=== PATIENT | male | born 1970 | race Asian ===

== ENCOUNTER 2023-08-30 11:29 | Outpatient (AMB) | payer OTHER, SELFPAY ==
--- NOTE | 2023-08-30 11:31 | A.OFFPC_ITS ---
Vital Signs 08/30/23 11:32 Height 5 ft 7 in Weight 326 lb BMI 51.1 BP 118/78 Blood Pressure Location Lt brachial Position Sitting Pulse 66 Pulse Source Pulse Oximeter Pulse Oximetry (%) 99 Oxygen Delivery Method Room Air Intake Visit Reasons: NPV/Requesting phy Accompanied by: Self / Same As Patient Allergies Seasonal Allergies Allergy (Verified 08/30/23 12:12) Unknown Medication List - Last Reconciled 08/30/23 by Bon Odonnell MD albuterol 90 mcg/actuation mcg inhalation azelastine 2 sprays intranasal BID cyclobenzaprine 10 mg PO BEDTIME meloxicam 15 mg PO DAILY triamcinolone acetonide-l.s.b. 0.1 % appl topical Tobacco use date assessed: 08/30/23 Dental Screening Dental Screen Date: 08/30/23 Did you have a dental visit in the last 12 months?: No Did you have a dental problem in the last 6 months where you did not have access to dental care?: No Was dental information given to patient?: No HPI NPV/Requesting phy HPI Details Patient comes in today for his annual physical examination and to establish care - is a new patient to the practice States that he has been experiencing low back pain and multiple joint pains for a while now Relates that he was referred to Rheumatology by his previous PCP sometime last year and was sent for some workups and started on some NSAIDs, which helped somewhat States that he was also referred to physical therapy and advised to lose weight to help manage his joint pains and low back pain States that he feels okay otherwise He denies any headaches or dizziness Denies any chest pains, no shortness of breath No nausea/ vomiting, no abdominal pain No change in bowel habits noted He denies any acute urinary symptoms Also needs his Albuterol inhaler Rx refilled States that he has never had a colonoscopy done in the past and is aware that he needs to start colon cancer screening now based on his age PFSH Medical History (Updated 09/02/23 @ 19:05 by Bon Odonnell MD) Asthma Obstructive sleep apnea Hypercholesteremia Bursitis of left shoulder Intermittent asthma Morbid obesity with BMI of 50.0-59.9, adult GERD (gastroesophageal reflux disease) Environmental allergies COVID-19 Surgical History (Updated 08/30/23 @ 12:20 by Bon Odonnell MD) No pertinent past surgical history Family History (Updated 09/02/23 @ 18:07 by Bon Odonnell MD) Other Family history non-contributory Social History Housing: House Patient Tobacco Use Status: Former Tobacco user e-Cigarette/Vaping Use: Never Used service: No Current occupational status: employed Current occupational exposures/hazards: No Cognitive needs: No Hearing needs: No Vision needs: No Questionnaire PHQ-9 Over the last 2 weeks, how often have you been bothered by any of the following problems? 1. Little interest or pleasure in doing things: not at all 2. Feeling down, depressed, or hopeless: not at all 3. Trouble falling or staying asleep, or sleeping too much: not at all 4. Feeling tired or having little energy: not at all 5. Poor appetite or overeating: not at all 6. Feeling bad about yourself - or that you are a failure or have let yourself or your family down: not at all 7. Trouble concentrating on things, such as reading the newspaper or watching television: not at all 8. Moving or speaking so slowly that other people could have noticed. Or the opposite - being so fidgety or restless that you have been moving around a lot more than usual: not at all 9. Thoughts that you would be better off or of hurting yourself in some way: not at all Total score: 0 Depression Screening Interpretation: Negative Depression Screening Done: Yes 28907 - PHQ-9 Billing: Yes Source: Developed by Drs. Michele Chen, Sima Grewal, Cain Juarez and colleagues, with an educational dalton from [employer]. Thrive Questionnaire Date Thrive assessed: 08/30/23 I am a: Patient What is your living situation today?: I have a steady place to live Within the past 12 months, did the food you bought not last and you didn't have the money to get more?: Never true Within the past 12 months, did you worry whether your food would run out before you got money to buy more?: Never true Do you have trouble paying for medicines?: No Do you have trouble getting transportation to medical appointments?: No Do you have trouble paying your heating and electricity bill?: No Do you have trouble taking care of your child, family member or friend?: No Do you have trouble with day-to-day activities such as bathing, preparing meals, shopping, managing finances, etc.?: No Are you currently unemployed and looking for a job?: No Are you interested in more education?: No Please select the resources that you would like help with: None Currently or been in a relationship where the following occur: no concerns reported THRIVE Score: 0 AUDIT C Alcohol Use Questionnaire (AUDIT-C) 1. How often do you have a drink containing alcohol?: Monthly or less 2. How many drinks containing alcohol do you have on a typical day when you are drinking?: 1 or 2 3. How often do you have six or more drinks on one occasion?: Never Total Score: 1 Score Reviewed/Action Taken: Yes FAUSTINA-7 AMB Questionnaire FAUSTINA-7 Date FAUSTINA - 7 assessed: 08/30/23 Feeling nervous, anxious, or on edge: 0 = Not at all Not being able to stop or control worryin = Not at all Worrying too much about different things: 0 = Not at all Trouble relaxin = Not at all Being so restless that it is hard to sit still: 0 = Not at all Becoming easily annoyed or irritable: 0 = Not at all Feeling afraid as if something awful might happen: 0 = Not at all Total FAUSTINA-7 score (0-4 normal; 5-9 mild; 10-14 moderate; 15-21 severe): 0 Source: Developed by Drs. Michele Chen, Sima Grewal, Cain Juarez and colleagues, with an educational dalton from [employer]. Review of Systems Const Denies chills, Denies fatigue, Denies fever(s), Denies headache(s), Denies malaise and Denies weakness Eyes Denies blurry vision, Denies change in vision, Denies irritation and Denies itchy eyes ENT Denies dysphagia, Denies dizziness, Denies otalgia, Denies headache(s), Denies nasal congestion, Denies neck pain, Denies odynophagia and Denies sore throat Card Denies chest pain, Denies rapid heart rate, Denies irregular heart rhythm, Denies palpitations and Denies dyspnea Resp Denies chest congestion, Denies cough, Denies dyspnea and Denies wheezing GI Denies abdominal pain, Denies bloating, Denies constipation, Denies dysphagia, Denies heartburn, Denies diarrhea, Denies nausea, Denies odynophagia and Denies vomiting Denies hematuria, Denies difficulty urinating, Denies dysuria, Denies urinary frequency and Denies urinary urgency Musc Reports back pain (over the lower back), Reports arthralgias (involving multiple joints), Denies joint swelling, Denies muscle weakness, Denies neck pain and Reports radiating pain into limb (into the right leg, at times) Skin/Breast Denies change in pigmentation, Denies lesions, Denies rash and Denies unusual bruising Neuro Denies dizziness, Denies headache(s), Denies paresthesias and Denies weakness Endo Denies fatigue and Denies palpitations Aller/Immun Denies itchy eyes and Denies wheezing Physical exam (Primary Care) Vital Signs: Last Vital Signs Pulse 66 08/30/23 11:32 BP 118/78 08/30/23 11:32 Pulse Ox 99 08/30/23 11:32 Oxygen Delivery Method Room Air 08/30/23 11:32 BMI result Body Mass Index 51.1 Tobacco/Smoking Status: Tobacco use Status Tobacco use date assessed 08/30/23 08/30/23 11:32 Patient Tobacco Use Status Former Tobacco user 08/30/23 11:42 e-Cigarette/Vaping Use Never Used 08/30/23 11:42 PHQ-9: PHQ-9 Score PHQ-9: Total score 0 08/30/23 12:16 Depression Screening Interpretation: Negative Thrive Assessment: Date of Thrive Assessment Date Thrive assessed 08/30/23 08/30/23 11:42 Currently or been in a relationship where the following occur: no concerns reported Const General: no acute distress, alert and awake Orientation/consciousness: patient oriented x3 HENMT Head: Yes normocephalic and Yes atraumatic Ears: external ears normal, TM's normal bilaterally and EAC's normal General nose exam: No nasal discharge present Face and sinus: Yes normal facial exam and Yes sinuses nontender Teeth and gingiva: dentition normal Throat: Yes posterior oropharynx normal and Yes tonsils normal (no TP congestion) Eyes Eyelids: Yes eyelids normal Conjunctivae: conjunctivae normal Pupils: Equal, round and reactive pupils present EOM: EOMs intact bilaterally Neck Neck: Yes no lymphadenopathy and Yes supple Thyroid: Thyroid normal Resp Auscultation: clear to auscultation bilaterally, no rales and no wheezes Cardio Rate: regular rate Rhythm: regular rhythm Heart sounds: no murmurs GI Palpation (GI): Soft to palpation, nontender and No hepatosplenomegaly present Auscultation: normal bowel sounds General: Yes no CVA tenderness Back/Spine/Pelvis Back: no CVA tenderness Cervical Spine: No Cervical spine tenderness Thoracic/Lumbar Spine: lumbar spinal tenderness Skin Lesions: no lesions Rashes: no rashes Neuro General: patient oriented x3, moves all extremities, no focal motor deficits and CN's II-XI intact bilaterally Cranial nerves: Yes Equal, round and reactive pupils present Cognition (Neuro): normal cognition Gait exam (Neuro): Normal gait present Extrem General: Yes no clubbing, cyanosis or edema Assessment and Plan Assessment & Plan (1) Annual physical exam: Code(s): Z00.00 - Encounter for general adult medical examination without abnormal findings Plan: Check labs (2) Arthralgia: Code(s): M25.50 - Pain in unspecified joint Qualifiers: Joint pain location: unspecified Qualified Code(s): M25.50 - Pain in unspecified joint Plan: Will send patient for some labs for further evaluation Discussed that we can consider referring him to rheumatology again for evaluation and management but will wait and see how his labs come out first Continue Meloxicam 15 mg QD with food PRN for joint pains (3) Low back pain: Code(s): M54.50 - Low back pain, unspecified Qualifiers: Back pain laterality: right Chronicity: unspecified Sciatica presence: unspecified whether sciatica present Qualified Code(s): M54.50 - Low back pain, unspecified Plan: Reinforced activity and weight-lifting restrictions May need repeat imaging if his low back pain progresses Continue Cyclobenzaprine 10 mg Q HS PRN (4) Obstructive sleep apnea: Code(s): G47.33 - Obstructive sleep apnea (adult) (pediatric) Plan: Continue using his CPAP device when sleeping at night daily (5) GERD (gastroesophageal reflux disease): Code(s): K21.9 - Gastro-esophageal reflux disease without esophagitis Qualifiers: Esophagitis presence: without esophagitis Qualified Code(s): K21.9 - Gastro-esophageal reflux disease without esophagitis Plan: Discussed dietary restrictions in GERD to minimize flare ups of symptoms (6) Hypercholesteremia: Code(s): E78.00 - Pure hypercholesterolemia, unspecified Plan: Discussed low cholesterol diet Will check his fasting lipid profile for follow up (7) Asthma: Code(s): J45.909 - Unspecified asthma, uncomplicated Qualifiers: Asthma severity: mild Asthma persistence: intermittent Asthma complication type: uncomplicated Qualified Code(s): J45.20 - Mild intermittent asthma, uncomplicated Plan: Continue Albuterol HFA 1 to 2 inhalations Q 6 hours PRN - Rx refilled (8) Morbid obesity with BMI of 50.0-59.9, adult: Code(s): E66.01 - Morbid (severe) obesity due to excess calories; Z68.43 - Body mass index [BMI] 50.0-59.9, adult Plan: Discussed diet/exercise as tolerated/lose weight (9) Colon cancer screening: Code(s): Z12.11 - Encounter for screening for malignant neoplasm of colon Plan: Will refer him to GI for screening colonoscopy Plan Follow up in 3 months Orders: Orders JAZZMINE Reflex Titer and Pattern 08/30/23 M25.50 - Pain in unspecified joint C Reactive Protein 08/30/23 M25.50 - Pain in unspecified joint Comprehensive [place]. Panel Fast 08/30/23 E78.00 - Pure hypercholesterolemia, unspecified, Z00.00 - Encounter for general adult medical examination without abnormal findings Lipid Panel 08/30/23 E78.00 - Pure hypercholesterolemia, unspecified, Z00.00 - Encounter for general adult medical examination without abnormal findings UA CC w/rflx Micro + Cult 08/30/23 R30.0 - Dysuria, Z00.00 - Encounter for general adult medical examination without abnormal findings Vitamin D 25-OH Total 08/30/23 E55.9 - Vitamin D deficiency, unspecified, Z00.00 - Encounter for general adult medical examination without abnormal findings Rheumatoid Factor 08/30/23 M25.50 - Pain in unspecified joint Erythrocyte Sedimentation Rate 08/30/23 M25.50 - Pain in unspecified joint, M79.7 - Fibromyalgia Lyme IgG/IgM w/reflex to WB 08/30/23 M25.50 - Pain in unspecified joint Complete Blood Count Auto Diff 08/30/23 Z00.00 - Encounter for general adult medical examination without abnormal findings TSH reflex Free T4 08/30/23 E78.00 - Pure hypercholesterolemia, unspecified, Z00.00 - Encounter for general adult medical examination without abnormal findings Prostate Specific Antigen Scr 08/30/23 Z00.00 - Encounter for general adult medical examination without abnormal findings Referrals Gastroenterology Referral Z12.11 - Encounter for screening for malignant neoplasm of colon Medications: New albuterol sulfate 90 mcg/actuation (Ventolin HFA) 2 puffs inhalation Q6H 30 days PRN 8.5 grams 5RF shortness of breath or wheezing Coding Level of Care Code New Pt Prev Care 40-64y(44180) Diagnoses Annual physical exam Z00.00 Arthralgia, unspecified joint M25.50 Joint pain location: unspecified Right low back pain, unspecified chronicity, unspecified whether sciatica present M54.50 Back pain laterality: right Chronicity: unspecified Sciatica presence: unspecified whether sciatica present Obstructive sleep apnea G47.33 Gastroesophageal reflux disease without esophagitis K21.9 Esophagitis presence: without esophagitis Hypercholesteremia E78.00 Mild intermittent asthma without complication J45.20 Asthma severity: mild Asthma persistence: intermittent Asthma complication type: uncomplicated Morbid obesity with BMI of 50.0-59.9, adult E66.01; Z68.43 Colon cancer screening Z12.11
[2023-08-30 11:32] VITALS: BP 118/78; PULSE 66; O2SAT 99; BMI 51.1
== END 2023-08-30 12:28 | disposition home or self-care (01) ==
PROVIDERS: PCP Internal Medicine; Visit Provider Internal Medicine
DX: Z00.00 Encounter for general adult medical examination without abnormal findings (principal); E66.01 Morbid (severe) obesity due to excess calories; Z68.43 Body mass index [BMI] 50.0-59.9, adult; M25.50 Pain in unspecified joint; M54.50 Low back pain, unspecified; G47.33 Obstructive sleep apnea (adult) (pediatric); K21.9 Gastro-esophageal reflux disease without esophagitis; E78.00 Pure hypercholesterolemia, unspecified; J45.20 Mild intermittent asthma, uncomplicated; Z12.11 Encounter for screening for malignant neoplasm of colon
CPT/HCPCS: 99386

== ENCOUNTER 2023-08-30 12:32 | Outpatient (REF) | payer OTHER, SELFPAY ==
[2023-08-30 12:51] LABS: MANUAL DIFF FLAG NO
[2023-08-30 14:45] LABS: Basophils Absolute Auto 0.1 X10*3/uL (0.0-0.2); Basophils Percent Auto 0.5 % (0-2); Eosinophils Absolute Auto 0.3 X10*3/uL (0.0-0.4); Eosinophils Percent Auto 3.1 % (0-4); Hematocrit 48.6 % (42.0-52.0); Hemoglobin 15.3 g/dl (14.0-18.0); Imm Gran Abs Auto 0.03 X10*3/uL (0.00-0.03); Imm Gran Pct Auto 0.3 % (0.0-0.4); Lymphocytes Percent Auto 21.7 % (20-40); Mean Corpuscular HGB Conc 31.5 g/dl (31.0-36.0); Mean Corpuscular Hemoglobin 27.3 pg (27.0-33.0); Mean Corpuscular Volume 86.6 fL (80.0-98.0); Mean Platelet Volume 10.3 fL (9.4-12.4); Monocytes Absolute Auto 0.8 X10*3/uL (0.1-1.2); Monocytes Percent Auto 8.5 % (2-11); Neutrophils Absolute Auto 6.2 x10*3/uL (2.0-8.3); Neutrophils Percent Auto 65.9 % (45-73); Platelet Count 320 X10*3/uL (160-400); Red Blood Count 5.61 X10*6/uL (4.60-5.80); Red Cell Distribution Width 13.7 % (11.0-16.0); White Blood Count 9.4 X10*3/uL (4.8-10.8)
[2023-08-30 14:57] LABS: Appearance Urine Clear; Color Urine Yellow; Glucose Urine UA Negative (Negative); Leukocyte Esterase Urine Trace (Negative); Nitrite Urine Negative (Negative); Specific Gravity - Urine 1.015 (1.005-1.025); UMIC TRIGGER UACC YES; Urine Blood Negative (Negative); Urine Ketones Negative (Negative); Urine Protein Trace mg/dL (Neg-Trace)
[2023-08-30 15:10] LABS: Bacteria Urine Trace (None Seen); Hyaline Casts Urine 0-2 /LPF (0-2); RBC Urine 0-2 /HPF (0-2); WBC Urine 0-5 /HPF (0-5)
[2023-08-30 15:35] LABS: Erythrocyte Sedimentation Rate 21 MM/HR (0-15)
[2023-08-30 15:36] LABS: Rheumatoid Factor < 13.0 IU/mL (<15.0)
[2023-08-30 15:38] LABS: Alanine Aminotransferase 24 U/L (0-40); Alkaline Phosphatase 59 U/L (39-117); Anion Gap 13 (12-20); Aspartate Amino Transferase 20 U/L (5-37); Bilirubin Total 0.6 mg/dL (0.0-1.0); Blood Urea Nitrogen 12 mg/dL (9-16); C Reactive Protein 1.36 mg/dL (< or = 0.50); Calcium 9.4 mg/dL (8.4-10.2); Carbon Dioxide 28 mmol/L (22-29); Chloride 107 mmol/L (96-108); Cholesterol 168 mg/dL (<200); Estimated Glomerular Filt Rate > 60; Glucose Fasting 72 mg/dL (60-99); HDL Cholesterol 41 mg/dL (>40); LDL Cholesterol Calculated 108 mg/dL (<100); Sodium 144 mmol/L (135-145); Triglycerides 98 mg/dL (<150)
[2023-08-30 15:46] LABS: TSH reflex Free T4 1.43 uIU/mL (0.32-4.0); Vitamin D 25-OH Total 12.4 ng/mL (>30)
[2023-08-30 15:49] LABS: Prostate Specific Antigen Scr 2.32 ng/mL (<0.05-4.0)
[2023-08-31 09:18] LABS: Lyme Abs Screen <0.90 index
[2023-09-06 15:54] LABS: ANA Pattern 2 Nuclear, Homogeneous; ANA Titer 2 1:40 titer; Anti Nuclear Antibody Pattern Nuclear, Nucleolar; Anti Nuclear Antibody Screen POSITIVE (NEGATIVE)
== END 2023-08-30 12:33 | disposition home or self-care (01) ==
LOC: HO.LAB 12:32
PROVIDERS: PCP Internal Medicine; Visit Provider Internal Medicine
DX: Z00.00 Encounter for general adult medical examination without abnormal findings (principal); Z12.5 Encounter for screening for malignant neoplasm of prostate; M25.50 Pain in unspecified joint; E78.00 Pure hypercholesterolemia, unspecified; E55.9 Vitamin D deficiency, unspecified; M79.7 Fibromyalgia
CPT/HCPCS: 36415; 80053; 80061; 81001; 82306; 84153; 84443; 85025; 85652; 86038; 86039; 86140; 86431; 86617; 86618

== ENCOUNTER 2023-09-11 12:54 | Outpatient (AMB) | payer OTHER, SELFPAY ==
--- NOTE | 2023-09-11 14:21 | AM.OFFWIN_ITS ---
Intake Vital Signs 09/11/23 14:29 Height 5 ft 7 in Weight 332 lb BMI 52.0 BP 122/60 Blood Pressure Location Rt brachial Position Sitting Pulse 90 Pulse Source Pulse Oximeter Temp 98.8 F Temp Source Oral Pulse Oximetry (%) 95 Oxygen Delivery Method Room Air Intake Visit Reasons: EST/cough and body aches ([phone]) Intake Note: Pt is here c/o ongoing cough and body aches for three days. Patient Tobacco Use Status: Never used Tobacco Allergies Seasonal Allergies Allergy (Verified 09/11/23 15:09) Unknown Medication List - Last Reconciled 09/11/23 by SARBJIT Walters albuterol 90 mcg/actuation mcg inhalation albuterol sulfate 90 mcg/actuation (Ventolin HFA) 2 puffs inhalation Q6H PRN 30 days azelastine 2 sprays intranasal BID benzonatate 200 mg PO BID PRN cholecalciferol (vitamin D3) 50 mcg PO DAILY 90 days prednisone 20 mg PO BID Do you need a note to return to daycare/school/sports/work: No HPI HPI Comments History of Present Illness Details Patient is a 52-year-old male in today for sick visit. He states that for the past several days he developed symptoms of cough, sore throat, chest congestion, wheeze. He has a past medical history significant for asthma. Patient states he has an albuterol inhaler which he has taken with little effect. Denies chest pain, shortness a breath, dyspnea on exertion, dizziness, numbness, nausea, vomiting. [facility] Medical History Asthma Obstructive sleep apnea Hypercholesteremia Bursitis of left shoulder Intermittent asthma Morbid obesity with BMI of 50.0-59.9, adult GERD (gastroesophageal reflux disease) Environmental allergies COVID-19 Surgical History No pertinent past surgical history Family History (Updated 09/02/23 @ 18:07 by Bon Odonnell MD) Other Family history non-contributory Social History Housing: House Patient Tobacco Use Status: Never used Tobacco e-Cigarette/Vaping Use: Never Used service: No Current occupational status: employed Current occupational exposures/hazards: No Cognitive needs: No Hearing needs: No Vision needs: No Review of Systems Const All systems reviewed & are unremarkable except as noted in HPI and below ENT Denies dizziness, Reports post nasal drip and Reports sore throat Card Denies chest pain and Denies dyspnea Resp Reports cough, Denies dyspnea and Reports wheezing GI Denies abdominal pain, Denies nausea and Denies vomiting Neuro Denies dizziness Aller/Immun Reports wheezing Physical Exam Vital Signs: Last Vital Signs Temp 98.8 F 09/11/23 14:29 Pulse 90 09/11/23 14:29 BP 122/60 09/11/23 14:29 Pulse Ox 95 09/11/23 14:29 Oxygen Delivery Method Room Air 09/11/23 14:29 BMI result Body Mass Index 52.0 Const Other: Appearance: Alert.? Oriented X3.? No acute distress.? Head: Normocephalic, atraumatic. ENT: Pharynx erythema w/cobblestone. Septum midline. TM intact with effusion bilaterally. Neck: Normal inspection.? Neck supple.?Full ROM. CVS: Normal heart rate and rhythm.? Pulses normal. Heatr sounds diminished due to body habitus. ? Respiratory: No respiratory distress.? Bilateral wheeze of upper lobes. Neuro: Oriented X 3.? No motor deficit.? No sensory deficit. CN 2-12 intact Assessment & Plan Assessment & Plan (1) Upper respiratory infection: Comment: Will give patient benzonatate and prednisone. Patient has albuterol inhaler nebulizer at home. Patient has been instructed how to take the medication properly and common side effects. Patient has been educated on signs of worsening symptoms and when to report back to the walk-in or when to present to the ED. Code(s): J06.9 - Acute upper respiratory infection, unspecified Qualifiers: URI type: unspecified URI Qualified Code(s): J06.9 - Acute upper respiratory infection, unspecified Plan: Take your medications as prescribed. If you were prescribed antibiotics today, it is important that you take your medication to their entirety, do not skip any doses, do not finish them early. Follow-up with your primary care provider this week. Return to the emergency department with new or worsening symptoms. Such as fevers, chills, chest pain, shortness of breath, nausea, vomiting, dizziness, headache, vision changes, lethargy In case of emergency call 911 Plan Follow-up with PCP. Orders: Orders SARS-CoV2/FLU/RSV Today J06.9 - Acute upper respiratory infection, unspecified Medications: New prednisone 20 mg PO BID 10 tabs 0RF benzonatate 200 mg PO BID PRN 30 caps 0RF cough Coding Level of Care Code Est Pt Level 3 (78031) Diagnoses Upper respiratory tract infection, unspecified type J06.9 URI type: unspecified URI Time Spent (min) 25
[2023-09-11 14:29] VITALS: BP 122/60; PULSE 90; TEMP 37.1; O2SAT 95; BMI 52.0
== END 2023-09-11 15:34 | disposition home or self-care (01) ==
PROVIDERS: PCP Internal Medicine; Visit Provider Nurse Practitioner Primary Care
DX: J06.9 Acute upper respiratory infection, unspecified (principal)
CPT/HCPCS: 99213

== ENCOUNTER 2023-09-11 16:52 | Outpatient (REF) | payer OTHER, SELFPAY ==
[2023-09-11 17:37] LABS: Influenza A PCR POSITIVE (Negative); Influenza B PCR NEGATIVE (Negative); Resp Syncy Virus RNA Qual PCR NEGATIVE (Negative); SARS COV2 PCR INHOUSE NEGATIVE (Negative)
== END 2023-09-11 16:53 | disposition home or self-care (01) ==
LOC: HO.LNP 16:52
PROVIDERS: Visit Provider Nurse Practitioner Primary Care
DX: Z11.52 Encounter for screening for COVID-19 (principal); J06.9 Acute upper respiratory infection, unspecified
CPT/HCPCS: 0241U

== ENCOUNTER 2023-10-02 12:48 | Outpatient (AMB) | payer OTHER, SELFPAY ==
--- NOTE | 2023-10-02 12:52 | A.OFFVIS_ITS ---
Intake Vital Signs 10/02/23 12:53 Height 5 ft 7 in Weight 337 lb 4.916 oz BMI 52.8 BP 130/62 Blood Pressure Location Rt radial Position Sitting Pulse 88 Pulse Source Pulse Oximeter Temp 97.9 F Temp Source Skin Pulse Oximetry (%) 96 Oxygen Delivery Method Room Air Intake Visit Reasons: Joint Pain Intake Note: New patient, internally referred, presents to office today for joint pain. Joints affected: right knee, left knee, back, left shoulder (known bursitis) Has tried: cortisone injections on left shoulder Physiologist Required: No Accompanied by: Self / Same As Patient Allergies Seasonal Allergies Allergy (Verified 10/02/23 12:52) Unknown HPI HPI Comments History of Present Illness Details Mr. Aramis estrella 52-year-old male presents today for initial evaluation of right knee pain and positive JAZZMINE. Patient was referred by primary care. He has a PMH of Dyslipidemia, asthma, morbid obesity, GERD. The patient reports that he has been having increased knee pain more than normal. The right knee hurts more than the left and hurts usually with movements like when he is walking or climbing stairs. He has had knee x-rays done either July last year or the beginning of August this year. In addition to his knee, he has pain to the left shoulder for which he receives corticosteroid injections. He also endorses low back pain which she says is not frequent and manageable. He also describes that sometimes he feels what he describes as a Zing on the do rsum of his left hand that starts from his elbow or his shoulder and shoots down to his finger. The patient is currently on prednisone 30 mg tapered from 60 mg per day for asthma exacerbation. The patient denies prolonged morning stiffness that last more than an hour. He denies episodes of joint swelling, warmth and redness. He denies rashes, Raynaud's, sun sensitivity, dry eyes, red burning eyes and dry mouth. He denies abdominal and urinary concerns and has no problems swallowing his food. He denies chronic fevers, fatigue and unintended weight loss or weight gain. [facility] Medical History Osteoarthritis of both knees Right knee pain Asthma Obstructive sleep apnea Hypercholesteremia Bursitis of left shoulder Intermittent asthma Morbid obesity with BMI of 50.0-59.9, adult GERD (gastroesophageal reflux disease) Environmental allergies COVID-19 Surgical History No pertinent past surgical history Family History (Updated 10/02/23 @ 12:57 by TRISHA Tom) Other Family history non-contributory Social History (Updated 10/02/23 @ 12:57 by TRISHA Tom) Housing: House Alcohol intake: current Alcohol intake frequency: holidays/special occasions only Patient Tobacco Use Status: Never used Tobacco e-Cigarette/Vaping Use: Never Used service: No Current occupational status: employed 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 External ear normal. NOSE/SINUS:? Airflow through both nares, no nasal discharge, no bleeding THROAT:? Oral mucosa moist, no ulcerations NECK:? No thyromegaly or masses, no adenopathy, trachea midline. HEART:? Regular rhythm, S1-S2 heard, no murmurs, rubs or gallops. LUNG:? Clear to auscultation EXTREMITIES:? No edema, no calf tenderness, normal peripheral pulses. NEURO:? Oriented and alert x3.? No focal weakness.? Reflexes symmetric.? Gait normal. SKIN:? There are no skin lesions evident. No objective signs of Raynaud's phenomenon. JOINT EXAM: Cervical Spine:.? Full range of motion without pain; no tenderness. Thoracic Spine:.? No scoliosis.? No tenderness on palpation. Lumbar Spine:.? Alignment normal.? Full range of motion without pain, no tenderness. Chest Wall:.? No tenderness, swelling, increased warmth or erythema. Hands:.? Normal pain-free range of motion without tenderness, swelling, increased warmth or erythema. Able to make a full fist and has a good sales order specialist strength. Wrists:.? Normal pain-free range of motion without tenderness, swelling, increased warmth or erythema. Elbows:. Normal pain-free range of motion without tenderness, swelling, increased warmth or erythema. Shoulders:.?? Right: Full range of motion without pain. No tenderness, weakness, swelling, increased warmth or erythema. Left: Full range of motion with mild discomfort and audible clicking. No tenderness, weakness, swelling, increased warmth or erythema. Hips:.? Full range of motion without pain. Hip bursa:.? No tenderness. Knees:.?? Right: Normal pain-free range of motion with tenderness to lateral and patellofemoral joint lines, swelling, increased warmth or erythema.? There is no effusion or crepitation Left: Normal pain-free range of motion without tenderness swelling, increased warmth or erythema.? There is no effusion or crepitation Ankles:.? Normal pain-free range of motion without tenderness, swelling, increased warmth or erythema. Feet:.? Normal pain-free range of motion without tenderness, swelling, increased warmth or erythema. Tender points:? No tenderness to digital palpation at the occiput, trapezius, second rib, lateral epicondyle, knees, greater trochanter and gluteal area bilaterally. ? Results Reviewed Results Reviewed: Laboratory Tests 08/30/23 09/11/23 12:50 16:53 WBC 9.4 RBC 5.61 Hgb 15.3 Hct 48.6 ESR 21 H Creatinine 0.87 Estimated GFR > 60 AST 20 ALT 24 C-Reactive Protein 1.36 H 25-OH Vitamin D Total 12.4 L JAZZMINE Titer 1:320 H JAZZMINE Titer 2 1:40 H Influenza Type A (PCR) POSITIVE A Assessment & Plan Assessment & Plan (1) Positive JAZZMINE (antinuclear antibody): Code(s): R76.8 - Other specified abnormal immunological findings in serum (2) Morbid obesity with BMI of 50.0-59.9, adult: Code(s): E66.01 - Morbid (severe) obesity due to excess calories; Z68.43 - Body mass index [BMI] 50.0-59.9, adult (3) Right knee pain: Code(s): M25.561 - Pain in right knee Qualifiers: Chronicity: chronic Qualified Code(s): M25.561 - Pain in right knee; G89.29 - Other chronic pain (4) Osteoarthritis of both knees: Code(s): M17.0 - Bilateral primary osteoarthritis of knee Qualifiers: Osteoarthritis type: primary Qualified Code(s): M17.0 - Bilateral primary osteoarthritis of knee Plan #Right Knee Pain/OA/Morbid Obesity(BMI52.8):Mr. Duke presents today for the evaluation of right knee pain. I think his knee pain is possibly a consequence of his morbid obesity. I do not have the x-rays available to me to see the extent of the osteoarthritis. I think, and the patient agrees that he would benefit from orthopedic referral for possible HLA injections. We will obtain the x-rays and assess to see if this is possible. Nonetheless I will put in of the ortho referral at this time. I also discussed with the patient steroid injections but it is better to hold off on doing that if we are sending him to ortho. I will also prescribe meloxicam 15 mg q.d.. Based on his records the patient did use that before and had stated that it helped his knees. I discussed with patient the concerns for using meloxicam and recommend that he take it with food to avoid abdominal discomfort. His kidney and liver functions are adequate at this time to use meloxicam. His CRP is elevated but I think that is related to his obesity and not likely an inflammatory pathology for joints. The patient has been on 60 mg of prednisone taper down to 30 and does not feel any relief from his knee pain while taking prednisone. This is another indicator that it is more likely that his knee pain is from mechanical causes such as osteoarthritis and also secondary to the obesity. He would certainly benefit from weight loss #+JAZZMINE: After careful initial review of history, records, available diagnostics and physical examination, it does not appear at this time that the patient has an underlying connective tissue disease or related inflammatory process. As outlined in the HPI and PE there are no signs and symptoms of connective tissue disease. Nonetheless I will order additional labs to evaluate further. I will or so order uric acid levels. Follow-up in 3 weeks I spent 50 minutes reviewing history, evaluating and counseling patient and documenting. Orders: Orders Complete Blood Count Auto Diff Today E66.01 - Morbid (severe) obesity due to excess calories, M25.50 - Pain in unspecified joint, R76.8 - Other specified abnormal immunological findings in serum, Z68.43 - Body mass index [BMI] 50.0- 59.9, adult Comprehensive Met. Panel Today E66.01 - Morbid (severe) obesity due to excess calories, M25.50 - Pain in unspecified joint, R76.8 - Other specified abnormal immunological findings in serum, Z68.43 - Body mass index [BMI] 50.0-59.9, adult C Reactive Protein Today E66.01 - Morbid (severe) obesity due to excess calories, M25.50 - Pain in unspecified joint, R76.8 - Other specified abnormal immunological findings in serum, Z68.43 - Body mass index [BMI] 50.0-59.9, adult Uric Acid Today E66.01 - Morbid (severe) obesity due to excess calories, M25.50 - Pain in unspecified joint, R76.8 - Other specified abnormal immunological findings in serum, Z68.43 - Body mass index [BMI] 50.0-59.9, adult Protein Electrophoresis, Serum Today E66.01 - Morbid (severe) obesity due to excess calories, M25.50 - Pain in unspecified joint, R76.8 - Other specified abnormal immunological findings in serum, Z68.43 - Body mass index [BMI] 50.0- 59.9, adult Anti DNA DS Antibody Today E66.01 - Morbid (severe) obesity due to excess calories, M25.50 - Pain in unspecified joint, R76.8 - Other specified abnormal immunological findings in serum, Z68.43 - Body mass index [BMI] 50.0-59.9, adult Anti Extractable Nuclear Ag Today E66.01 - Morbid (severe) obesity due to excess calories, M25.50 - Pain in unspecified joint, R76.8 - Other specified abnormal immunological findings in serum, Z68.43 - Body mass index [BMI] 50.0-59.9, adult Complement C3 Today E66.01 - Morbid (severe) obesity due to excess calories, M25.50 - Pain in unspecified joint, R76.8 - Other specified abnormal immunological findings in serum, Z68.43 - Body mass index [BMI] 50.0-59.9, adult Complement C4 Today E66.01 - Morbid (severe) obesity due to excess calories, M25.50 - Pain in unspecified joint, R76.8 - Other specified abnormal immunological findings in serum, Z68.43 - Body mass index [BMI] 50.0-59.9, adult Creatine Kinase Total Today E66.01 - Morbid (severe) obesity due to excess calories, M25.50 - Pain in unspecified joint, R76.8 - Other specified abnormal immunological findings in serum, Z68.43 - Body mass index [BMI] 50.0-59.9, adult Erythrocyte Sedimentation Rate Today E66.01 - Morbid (severe) obesity due to excess calories, M25.50 - Pain in unspecified joint, R76.8 - Other specified abnormal immunological findings in serum, Z68.43 - Body mass index [BMI] 50.0- 59.9, adult Immunoglobulins,IgG IgA IgM Today E66.01 - Morbid (severe) obesity due to excess calories, M25.50 - Pain in unspecified joint, R76.8 - Other specified abnormal immunological findings in serum, Z68.43 - Body mass index [BMI] 50.0-59.9, adult Cyclic Citrullinated Peptide Today M25.50 - Pain in unspecified joint, M25.561 - Pain in right knee Referrals Orthopedics Referral M17.0 - Bilateral primary osteoarthritis of knee Medications: New meloxicam 15 mg PO DAILY 90 tabs 1RF M25.561 - Pain in right knee Coding Level of Care Code Est Pt Level 5 (89158) Diagnoses Positive JAZZMINE (antinuclear antibody) R76.8 Morbid obesity with BMI of 50.0-59.9, adult E66.01; Z68.43 Chronic pain of right knee M25.561; G89.29 Chronicity: chronic Primary osteoarthritis of both knees M17.0 Osteoarthritis type: primary
[2023-10-02 12:53] VITALS: BP 130/62; PULSE 88; TEMP 36.6; O2SAT 96; BMI 52.8
== END 2023-10-02 14:25 | disposition home or self-care (01) ==
PROVIDERS: PCP Internal Medicine; Visit Provider Nurse Practitioner Family
DX: G89.29 Other chronic pain (principal); R76.8 Other specified abnormal immunological findings in serum; E66.01 Morbid (severe) obesity due to excess calories; Z68.43 Body mass index [BMI] 50.0-59.9, adult; M25.561 Pain in right knee; M17.0 Bilateral primary osteoarthritis of knee
CPT/HCPCS: 99205

== ENCOUNTER 2023-10-02 12:48 | Outpatient (REF) | payer OTHER, SELFPAY ==
[2023-10-02 15:27] LABS: Basophils Percent Auto 0.2 % (0-2); Eosinophils Percent Auto 0.1 % (0-4); Hematocrit 46.8 % (42.0-52.0); Hemoglobin 15.2 g/dl (14.0-18.0); Imm Gran Abs Auto 0.07 X10*3/uL (0.00-0.03); Imm Gran Pct Auto 0.6 % (0.0-0.4); Lymphocytes Absolute Auto 0.7 X10*3/uL (1.2-4.9); Lymphocytes Percent Auto 5.9 % (20-40); MANUAL DIFF FLAG SCAN; Mean Corpuscular HGB Conc 32.5 g/dl (31.0-36.0); Mean Corpuscular Hemoglobin 27.5 pg (27.0-33.0); Mean Corpuscular Volume 84.8 fL (80.0-98.0); Mean Platelet Volume 9.5 fL (9.4-12.4); Monocytes Absolute Auto 0.3 X10*3/uL (0.1-1.2); Monocytes Percent Auto 2.9 % (2-11); Neutrophils Percent Auto 90.3 % (45-73); Platelet Count 298 X10*3/uL (160-400); Red Blood Count 5.52 X10*6/uL (4.60-5.80); Red Cell Distribution Width 15.1 % (11.0-16.0); SCAN SMEAR FLAG 1; White Blood Count 11.1 X10*3/uL (4.8-10.8)
[2023-10-02 16:04] LABS: SLIDE REVIEW VERIFIED
[2023-10-02 16:07] LABS: Alanine Aminotransferase 31 U/L (0-40); Albumin Level 3.7 g/dL (3.5-5.0); Alkaline Phosphatase 59 U/L (39-117); Anion Gap 12 (12-20); Aspartate Amino Transferase 19 U/L (5-37); Bilirubin Total 0.4 mg/dL (0.0-1.0); Blood Urea Nitrogen 12 mg/dL (9-16); C Reactive Protein 1.23 mg/dL (< or = 0.50); Calcium 9.5 mg/dL (8.4-10.2); Carbon Dioxide 24 mmol/L (22-29); Chloride 107 mmol/L (96-108); Estimated Glomerular Filt Rate > 60; Glucose Random 176 mg/dL (60-115); Potassium 4.3 mmol/L (3.3-5.1); Sodium 139 mmol/L (135-145); Total Protein 7.5 g/dL (6.5-8.0)
[2023-10-02 16:14] LABS: Erythrocyte Sedimentation Rate 13 MM/HR (0-15)
[2023-10-02 16:39] LABS: Uric Acid 4.8 mg/dL (3.4-7.0)
[2023-10-03 16:30] LABS: Complement C3 176 mg/dL (82-185)
[2023-10-04 11:38] LABS: Prot Elec - Albumin 3.8 g/dL (3.8-4.8); Prot Elec - Alpha1 0.3 g/dL (0.2-0.3); Prot Elec - Alpha2 0.9 g/dL (0.5-0.9); Prot Elec - Beta 1 0.5 g/dL (0.4-0.6); Prot Elec - Beta 2 0.6 g/dL (0.2-0.5); Prot Elec - Gamma 1.3 g/dL (0.8-1.7); Prot Elec - Total Protein 7.3 g/dL (6.1-8.1)
[2023-10-04 12:58] LABS: Anti DNA DS Antibody <1 IU/mL; SM/Ribonucleoprotein Ab <1.0 NEG AI (<1.0 NEG); Smith Protein <1.0 NEG AI (<1.0 NEG)
[2023-10-04 15:39] LABS: Cyclic Citrullinated Peptide 27 UNITS
[2023-10-04 22:09] LABS: IgA 378 mg/dL (47-310); IgG 1385 mg/dL (600-1640); IgM 80 mg/dL (50-300)
== END 2023-10-02 12:49 | disposition home or self-care (01) ==
LOC: HO.LAB 12:48
PROVIDERS: PCP Internal Medicine; Visit Provider Nurse Practitioner Family
DX: R76.8 Other specified abnormal immunological findings in serum (principal); E66.01 Morbid (severe) obesity due to excess calories; Z68.43 Body mass index [BMI] 50.0-59.9, adult; M25.561 Pain in right knee
CPT/HCPCS: 36415; 80053; 82550; 82784; 84165; 84550; 85025; 85652; 86140; 86160; 86200; 86225; 86235

== ENCOUNTER 2023-10-04 11:04 | Outpatient (AMB) | payer OTHER, SELFPAY ==
[2023-10-04 11:06] VITALS: BP 138/82; PULSE 81; O2SAT 97; BMI 52.4
--- NOTE | 2023-10-04 11:06 | MHC.PC.OV ---
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 Required: No Accompanied by: Self / Same As Patient Allergies Seasonal Allergies Allergy (Verified 10/04/23 12:00) Unknown Medication List - Last Reconciled 10/04/23 by Bon Odonnell MD albuterol 90 mcg/actuation mcg inhalation cholecalciferol (vitamin D3) 50 mcg PO DAILY 90 days loratadine 10 mg PO DAILY meloxicam 15 mg PO DAILY prednisone mg PO Tobacco use date assessed: 10/04/23 Dental Screening Dental Screen Date: 10/04/23 Did you have a dental visit in the last 12 months?: No Did you have a dental problem in the last 6 months where you did not have access to dental care?: No Was dental information given to patient?: No HPI Mccann discharge 09/18 difficulty breathing HPI Details Patient comes in today for his F follow up visit He reportedly went to the ER at [facility] a couple of weeks ago for increasing SOB and wheezing States that he was evaluated and tested negative for COVID, influenza and RSV He was discharged home with Rx for oral Prednisone taper, which he is currently still finishing up Patient states that his respiratory symptoms have improved a lot with his prednisone taper and he no longer feels SOB He was also seen by rheumatology a few days ago for his positive JAZZMINE and joint pains and was in turn, referred to orthopedics for his knee pain He was advised that he currently does not appear to have any evidence of inflammatory joint disease despite his positive JAZZMINE but was also sent for some additional labs for further evaluation Patient currently denies any fever, headaches or dizziness Denies any chest pains No nausea/vomiting, no abdominal pain No change in bowel habits noted He had some follow up labs done over the past few weeks, both for us and for rheumatology - to discuss his results [facility] Medical History Osteoarthritis of both knees Right knee pain Asthma Obstructive sleep apnea Hypercholesteremia Bursitis of left shoulder Intermittent asthma Morbid obesity with BMI of 50.0-59.9, adult GERD (gastroesophageal reflux disease) Environmental allergies COVID-19 Surgical History No pertinent past surgical history Family History Other Family history non-contributory Social History Housing: House Alcohol intake: current Alcohol intake frequency: holidays/special occasions only Patient Tobacco Use Status: Never used Tobacco e-Cigarette/Vaping Use: Never Used service: No Current occupational status: employed 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 1. Little interest or pleasure in doing things: not at all 2. Feeling down, depressed, or hopeless: not at all 3. Trouble falling or staying asleep, or sleeping too much: not at all 4. Feeling tired or having little energy: not at all 5. Poor appetite or overeating: not at all 6. Feeling bad about yourself - or that you are a failure or have let yourself or your family down: not at all 7. Trouble concentrating on things, such as reading the newspaper or watching television: not at all 8. Moving or speaking so slowly that other people could have noticed. Or the opposite - being so fidgety or restless that you have been moving around a lot more than usual: not at all 9. Thoughts that you would be better off or of hurting yourself in some way: not at all Total score: 0 Depression Screening Interpretation: Negative Depression Screening Done: Yes [id number] - PHQ-9 Billing: Yes Source: Developed by Drs. Michele Chen, Sima Grewal, Cain Juarez and colleagues, with an educational dalton from [employer]. Thrive Questionnaire Date Thrive assessed: 10/04/23 I am a: Patient What is your living situation today?: I have a steady place to live Within the past 12 months, did the food you bought not last and you didn't have the money to get more?: Never true Within the past 12 months, did you worry whether your food would run out before you got money to buy more?: Never true Do you have trouble paying for medicines?: No Do you have trouble getting transportation to medical appointments?: No Do you have trouble paying your heating and electricity bill?: No Do you have trouble taking care of your child, family member or friend?: No Do you have trouble with day-to-day activities such as bathing, preparing meals, shopping, managing finances, etc.?: No Are you currently unemployed and looking for a job?: No Are you interested in more education?: No Please select the resources that you would like help with: None Currently or been in a relationship where the following occur: no concerns reported THRIVE Score: 0 AUDIT C Alcohol Use Questionnaire (AUDIT-C) 1. How often do you have a drink containing alcohol?: Monthly or less 2. How many drinks containing alcohol do you have on a typical day when you are drinking?: 1 or 2 3. How often do you have six or more drinks on one occasion?: Never Total Score: 1 Score Reviewed/Action Taken: Yes FAUSTINA-7 AMB Questionnaire FAUSTINA-7 Date FAUSTINA - 7 assessed: 10/04/23 Feeling nervous, anxious, or on edge: 0 = Not at all Not being able to stop or control worryin = Not at all Worrying too much about different things: 0 = Not at all Trouble relaxin = Not at all Being so restless that it is hard to sit still: 0 = Not at all Becoming easily annoyed or irritable: 0 = Not at all Feeling afraid as if something awful might happen: 0 = Not at all Total FAUSTINA-7 score (0-4 normal; 5-9 mild; 10-14 moderate; 15-21 severe): 0 Source: Developed by Drs. Michele Chen, Sima Grewal, Cain Juarez and colleagues, with an educational dalton from [employer]. Review of Systems Const Denies chills, Denies fatigue, Denies fever(s) and Denies headache(s) ENT Denies dysphagia, Denies dizziness, Denies otalgia, Denies headache(s), Denies neck pain, Denies odynophagia and Denies sore throat Card Denies chest pain, Denies irregular heart rhythm, Denies palpitations and Denies dyspnea Resp Denies chest congestion (improved), Reports cough (occasional, non-productive), Denies dyspnea and Denies wheezing GI Denies abdominal pain, Denies constipation, Denies dysphagia, Denies heartburn, Denies diarrhea, Denies nausea, Denies odynophagia and Denies vomiting Denies hematuria, Denies difficulty urinating, Denies dysuria and Denies urinary frequency Musc Reports back pain (over the lower back), Reports arthralgias (involving multiple joints, especially his right knee), Denies neck pain and Reports radiating pain into limb (into the right leg, at times) Skin/Breast Denies rash Neuro Denies dizziness, Denies headache(s) and Denies paresthesias Endo Denies fatigue and Denies palpitations Aller/Immun Denies wheezing Physical exam (Primary Care) Vital Signs: Last Vital Signs Pulse 81 10/04/23 11:06 BP 138/82 10/04/23 11:06 Pulse Ox 97 10/04/23 11:06 Oxygen Delivery Method Room Air 10/04/23 11:06 BMI result Body Mass Index 52.4 Tobacco/Smoking Status: Tobacco use Status Tobacco use date assessed 10/04/23 10/04/23 11:08 Patient Tobacco Use Status Never used Tobacco 10/04/23 11:08 e-Cigarette/Vaping Use Never Used 10/04/23 11:08 PHQ-9: PHQ-9 Score PHQ-9: Total score 0 10/04/23 12:01 Depression Screening Interpretation: Negative Thrive Assessment: Date of Thrive Assessment Date Thrive assessed 10/04/23 10/04/23 11:08 Currently or been in a relationship where the following occur: no concerns reported Const General: no acute distress and alert HENMT Ears: TM's normal bilaterally and EAC's normal Throat: Yes posterior oropharynx normal and Yes tonsils normal (no TP congestion) Neck Neck: Yes no lymphadenopathy and Yes supple Thyroid: Thyroid normal Resp Auscultation: clear to auscultation bilaterally, no rales and no wheezes Cardio Rate: regular rate Rhythm: regular rhythm Heart sounds: no murmurs GI Palpation (GI): Soft to palpation and nontender Auscultation: normal bowel sounds General: Yes no CVA tenderness Back/Spine/Pelvis Back: no CVA tenderness Cervical Spine: No Cervical spine tenderness Thoracic/Lumbar Spine: lumbar spinal tenderness Skin Rashes: no rashes Extrem General: Yes no clubbing, cyanosis or edema Right lower extremity: knee Details: tenderness; no swelling Results Reviewed Results Reviewed: Laboratory Tests 08/30/23 08/30/23 08/30/23 12:42 12:50 12:50 WBC Hgb Hct Plt Count ESR Sodium Potassium Creatinine Estimated GFR Random Glucose Fasting Glucose 72 Uric Acid Calcium AST ALT C-Reactive Protein Triglycerides 98 Cholesterol 168 LDL Cholesterol, Calc 108 H HDL Cholesterol 41 PSA Screen 25-OH Vitamin D Total TSH Ur Specific Mamou 1.015 Urine Protein Trace Urine Glucose (UA) Negative Urine Blood Negative Urine Nitrite Negative Ur Leukocyte Esterase Trace H 08/30/23 10/02/23 10/02/23 12:50 14:18 14:18 WBC 11.1 H Hgb 15.2 Hct 46.8 Plt Count 298 ESR 13 Sodium 139 Potassium 4.3 Creatinine 0.84 Estimated GFR > 60 Random Glucose 176 H Fasting Glucose Uric Acid 4.8 Calcium 9.5 AST ALT C-Reactive Protein 1.23 H Triglycerides Cholesterol LDL Cholesterol, Calc HDL Cholesterol PSA Screen 2.32 25-OH Vitamin D Total 12.4 L TSH 1.43 Ur Specific Mamou Urine Protein Urine Glucose (UA) Urine Blood Urine Nitrite Ur Leukocyte Esterase 10/02/23 10/02/23 14:18 14:18 WBC Hgb Hct Plt Count ESR Sodium Potassium Creatinine Estimated GFR Random Glucose Fasting Glucose Uric Acid Calcium AST 19 ALT 31 C-Reactive Protein Triglycerides Cholesterol LDL Cholesterol, Calc HDL Cholesterol PSA Screen 25-OH Vitamin D Total TSH Ur Specific Mamou Urine Protein Urine Glucose (UA) Urine Blood Urine Nitrite Ur Leukocyte Esterase Assessment and Plan Assessment & Plan (1) Asthma exacerbation: Code(s): J45.901 - Unspecified asthma with (acute) exacerbation Qualifiers: Asthma severity: moderate Asthma persistence: persistent Qualified Code(s): J45.41 - Moderate persistent asthma with (acute) exacerbation Plan: Improving - continue oral Prednisone taper as instructed Continue Albuterol HFA 1 to 2 inhalations Q 6 hours PRN Patient states that his asthma is normally well-controlled and he hardly has to use his rescue inhaler unless he catches a cold, during which his asthma will then tend to flare up for a while Will send him for PFTs for further evaluation of the severity of his asthma at baseline (2) Arthralgia: Code(s): M25.50 - Pain in unspecified joint Qualifiers: Joint pain location: unspecified Qualified Code(s): M25.50 - Pain in unspecified joint Plan: His initial labs came back positive for JAZZMINE, and he has been referred to rheumatology for further evaluation and management as a result He was seen by rheumatology earlier this week and has been sent for some additional labs for further evaluation He was also referred to orthopedics for his right knee pain and he was advised that this is more likely due to OA - he is scheduled to be seen by orthopedics next week Continue Meloxicam 15 mg QD with food PRN for joint pains (3) Low back pain: Code(s): M54.50 - Low back pain, unspecified Qualifiers: Chronicity: unspecified Back pain laterality: right Sciatica presence: unspecified whether sciatica present Qualified Code(s): M54.50 - Low back pain, unspecified Plan: Reinforced activity and weight-lifting restrictions May need repeat imaging if his low back pain progresses Continue Cyclobenzaprine 10 mg Q HS PRN (4) Obstructive sleep apnea: Code(s): G47.33 - Obstructive sleep apnea (adult) (pediatric) Plan: Continue using his CPAP device when sleeping at night daily (5) GERD (gastroesophageal reflux disease): Code(s): K21.9 - Gastro-esophageal reflux disease without esophagitis Qualifiers: Esophagitis presence: without esophagitis Qualified Code(s): K21.9 - Gastro-esophageal reflux disease without esophagitis Plan: Reinforced dietary restrictions in GERD to help minimize flare ups of his GI symptoms (6) Hypercholesteremia: Code(s): E78.00 - Pure hypercholesterolemia, unspecified Plan: Results of his labs done over the past few weeks reviewed and discussed with patient - is advised that his cholesterol levels checked a few weeks ago were all within acceptable range Reinforced low cholesterol diet (7) Morbid obesity with BMI of 50.0-59.9, adult: Code(s): E66.01 - Morbid (severe) obesity due to excess calories; Z68.43 - Body mass index [BMI] 50.0-59.9, adult Plan: Reinforced diet/exercise as tolerated/lose weight Plan Follow up as scheduled in late November 2023 Orders: Orders PFT pulmonary function test 10/04/23 J45.909 - Unspecified asthma, uncomplicated Coding Level of Care Code Est Pt Level 4 (11905) Diagnoses Moderate persistent asthma with exacerbation J45.41 Asthma severity: moderate Asthma persistence: persistent Arthralgia, unspecified joint M25.50 Joint pain location: unspecified Right low back pain, unspecified chronicity, unspecified whether sciatica present M54.50 Chronicity: unspecified Back pain laterality: right Sciatica presence: unspecified whether sciatica present Obstructive sleep apnea G47.33 Gastroesophageal reflux disease without esophagitis K21.9 Esophagitis presence: without esophagitis Hypercholesteremia E78.00 Morbid obesity with BMI of 50.0-59.9, adult E66.01; Z68.43
== END 2023-10-04 12:10 | disposition home or self-care (01) ==
PROVIDERS: PCP Internal Medicine; Visit Provider Internal Medicine
DX: J45.41 Moderate persistent asthma with (acute) exacerbation (principal); E66.01 Morbid (severe) obesity due to excess calories; Z68.43 Body mass index [BMI] 50.0-59.9, adult; M25.50 Pain in unspecified joint; M54.50 Low back pain, unspecified; G47.33 Obstructive sleep apnea (adult) (pediatric); K21.9 Gastro-esophageal reflux disease without esophagitis; E78.00 Pure hypercholesterolemia, unspecified
CPT/HCPCS: 99214

== ENCOUNTER 2023-10-10 11:50 | Outpatient (REF) | payer OTHER, SELFPAY ==
--- NOTE | ~2023-10-10 | XR_ITS ---
EXAMINATION: XR KNEE, RIGHT CLINICAL INFORMATION: Pain in right knee COMPARISON: None available. TECHNIQUE: 3 views of the right knee. FINDINGS: No fracture. Small joint effusion. There is mild lateral patellar tilt with narrowing of the lateral patellofemoral joint. Quadriceps enthesopathy is noted. There is soft tissue swelling in the region of the lateral collateral ligament. Vascular calcification consistent with atherosclerosis is noted. XR/XR knee RT 3V IMPRESSION: 1. Mild lateral patellar tilt with narrowing of the lateral patellofemoral joint. 2. Soft tissue swelling in the region of the lateral collateral ligament.
--- NOTE | ~2023-10-10 | XR_ITS ---
EXAMINATION: XR KNEE, LEFT CLINICAL INFORMATION: Pain in left knee COMPARISON: None available. TECHNIQUE: Four views of the left knee. FINDINGS: No fracture or joint effusion. Alignment is anatomic. There is mild narrowing of the patellofemoral joint compartment with marginal osteophyte formation. Quadriceps enthesopathy is noted. XR/XR knee LT 3V IMPRESSION: Mild osteoarthritis of the patellofemoral joint compartment.
== END 2023-10-10 11:51 | disposition home or self-care (01) ==
LOC: HO.HOSX 11:50
PROVIDERS: Visit Provider Orthopaedic Surgery
DX: M25.562 Pain in left knee (principal); M25.561 Pain in right knee; G89.29 Other chronic pain
CPT/HCPCS: 73562

== ENCOUNTER 2023-10-10 15:11 | Outpatient (AMB) | payer OTHER, SELFPAY ==
[2023-10-10 15:13] VITALS: BMI 52.3
--- NOTE | 2023-10-10 15:13 | MHC.OFFVIS ---
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 Patient reports his pain has been going on for about 2 -3 months. Walking and climbing the stairs cause increased pain. He states his pain is worse on the Right. He denies any previous treatment. Patient informed me that his right knee tends to buckle when he is using the stairs. The patient also states that he is undergoing evaluation for possible rheumatologic disorder. He wishes to avoid surgery if at all possible. Allergies Seasonal Allergies Allergy (Verified 10/10/23 15:33) Unknown Medication List - Last Reconciled 10/11/23 by Ricky Damian MD albuterol 90 mcg/actuation mcg inhalation cholecalciferol (vitamin D3) 50 mcg PO DAILY 90 days loratadine 10 mg PO DAILY meloxicam 15 mg PO DAILY prednisone mg PO REPLACED BY [facility] Medical History Osteoarthritis of both knees Right knee pain Asthma Obstructive sleep apnea Hypercholesteremia Bursitis of left shoulder Intermittent asthma Morbid obesity with BMI of 50.0-59.9, adult GERD (gastroesophageal reflux disease) Environmental allergies COVID-19 Surgical History No pertinent past surgical history Family History Other Family history non-contributory Social History Housing: House Alcohol intake: current Alcohol intake frequency: holidays/special occasions only Patient Tobacco Use Status: Never used Tobacco e-Cigarette/Vaping Use: Never Used service: No Current occupational status: employed 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, 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, 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 Current occupational exposures/hazards: No Cognitive needs: No Hearing needs: No Vision needs: No Physical Exam Vital Signs: BMI result Body Mass Index 52.3 Const Other: Well-nourished well-developed very friendly male awake alert and oriented x3 in no acute distress Extrem Other: Bilateral lower extremity examination shows good capillary refill, no skin lesions noted, normal sensation light touch Bilateral knee examination shows minimal effusions, minimal crepitus with range of motion, tenderness along his medial joint lines, positive Kwame's tests Results Reviewed Results Reviewed: X-rays of the patient's bilateral knee show mild joint space narrowing, no acute bony abnormalities Assessment & Plan Assessment & Plan (1) Left knee pain: Code(s): M25.562 - Pain in left knee (2) Right knee pain: Code(s): M25.561 - Pain in right knee Qualifiers: Chronicity: chronic Qualified Code(s): M25.561 - Pain in right knee; G89.29 - Other chronic pain Plan Mr. Duke presents with bilateral knee discomfort due to early degenerative joint disease as well as possible medial meniscus tearing and possible rheumatologic disorder. I had a lengthy discussion with the patient regarding the treatment options. He wishes to hold off on an injection for now. Will follow up with Rheumatology as scheduled. He will follow up with me on an as-needed basis should his symptoms not plateau at an unacceptable level. Feel free to call me at any time should questions regarding his orthopedic management arise. I spent 22 minutes in reviewing the patient's records and imaging studies, seeing the patient and documenting in the medical record. Orders: Orders XR knee LT 3V 10/10/23 M25.562 - Pain in left knee XR knee RT 3V 10/10/23 M25.561 - Pain in right knee Coding Level of Care Code New Pt Level 2 (73377) Diagnoses Left knee pain M25.562 Chronic pain of right knee M25.561; G89.29 Chronicity: chronic
== END 2023-10-10 15:48 | disposition home or self-care (01) ==
PROVIDERS: PCP Internal Medicine; Visit Provider Orthopaedic Surgery
DX: M25.562 Pain in left knee (principal); M25.561 Pain in right knee; G89.29 Other chronic pain
CPT/HCPCS: 99202

== ENCOUNTER 2023-10-16 12:45 | Outpatient (AMB) | payer OTHER, SELFPAY ==
[2023-10-16 12:56] VITALS: BP 130/62; PULSE 73; TEMP 36.2; O2SAT 97; BMI 54.3
--- NOTE | 2023-10-16 12:56 | MHC.OFFVIS ---
Intake Vital Signs 10/16/23 12:56 Height 5 ft 7 in Weight 347 lb 0.121 oz BMI 54.3 BP 130/62 Blood Pressure Location Rt brachial Position Sitting Pulse 73 Pulse Source Pulse Oximeter Temp 97.2 F Temp Source Skin Pulse Oximetry (%) 97 Oxygen Delivery Method Room Air Intake Visit Reasons: knee pain/ortho referal Intake Note: Patient last seen 10/02/23 by Claudio, presents today for follow up. 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 Duke who returns for follow-up of his initial evaluation of right knee pain and positive JAZZMINE. Patient is here to discuss his lab work and his referral to orthopedic. His right knee pain continues to be more evident with climbing stairs but he says there has always a dull ache without activity. Initial history Mr. Duke 52-year-old male presents today for initial evaluation of right knee pain and positive JAZZMINE. Patient was referred by primary care. He has a PMH of Dyslipidemia, asthma, morbid obesity, GERD. The patient reports that he has been having increased knee pain more than normal. The right knee hurts more than the left and hurts usually with movements like when he is walking or climbing stairs. He has had knee x-rays done either July last year or the beginning of August this year. In addition to his knee, he has pain to the left shoulder for which he receives corticosteroid injections. He also endorses low back pain which she says is not frequent and manageable. He also describes that sometimes he feels what he describes as a Zing on the dorsum of his left hand that starts from his elbow or his shoulder and shoots down to his finger. The patient is currently on prednisone 30 mg tapered from 60 mg per day for asthma exacerbation. The patient denies prolonged morning stiffness that last more than an hour. He denies episodes of joint swelling, warmth and redness. He denies rashes, Raynaud's, sun sensitivity, dry eyes, red burning eyes and dry mouth. He denies abdominal and urinary concerns and has no problems swallowing his food. He denies chronic fevers, fatigue and unintended weight loss or weight gain. [facility] Medical History Osteoarthritis of both knees Right knee pain Asthma Obstructive sleep apnea Hypercholesteremia Bursitis of left shoulder Intermittent asthma Morbid obesity with BMI of 50.0-59.9, adult GERD (gastroesophageal reflux disease) Environmental allergies COVID-19 Surgical History No pertinent past surgical history Family History Other Family history non-contributory Social History Housing: House Alcohol intake: current Alcohol intake frequency: holidays/special occasions only Patient Tobacco Use Status: Never used Tobacco e-Cigarette/Vaping Use: Never Used service: No Current occupational status: employed 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, 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, 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 Current occupational exposures/hazards: No Cognitive needs: No Hearing needs: No Vision needs: No Review of Systems Const All systems reviewed & are unremarkable except as noted in HPI and below Physical Exam Vital Signs: Last Vital Signs Temp 97.2 F 10/16/23 12:56 Pulse 73 10/16/23 12:56 BP 130/62 10/16/23 12:56 Pulse Ox 97 10/16/23 12:56 Oxygen Delivery Method Room Air 10/16/23 12:56 BMI result Body Mass Index 54.3 Well-nourished well-developed very friendly male awake alert and oriented x3 in no acute distress Extrem Other Bilateral lower extremity examination shows good capillary refill, no skin lesions noted, normal sensation light touch Bilateral knee examination shows minimal effusions, minimal crepitus with range of motion, tenderness along his medial joint lines, positive Kwame's tests Office Procedures Joint Injection/Drain Joint Injection/Drain Primary Site: right knee Prep: site was prepped using aseptic technique Injected: 80 mg of, Kenalog, with 1 mL of and 1% plain lidocaine Approach Used: anteromedial Procedure: The patient tolerated the procedure well Coding 60769 - Large joint Procedure code (CPT) selection complete Results Reviewed Results Reviewed: X-rays of the patient's bilateral knee show mild joint space narrowing, no acute bony abnormalities Laboratory Tests 10/02/23 14:18 WBC 11.1 H RBC 5.52 Hgb 15.2 Hct 46.8 ESR 13 C-Reactive Protein 1.23 H IgG Total 1385 IgA Total 378 H IgM 80 Cycl Citrul Peptide IgG 27 H Sm ([place]) Antibody <1.0 NEG 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 IgG Antibody <1.0 NEG Assessment & Plan Assessment & Plan (1) Positive JAZZMINE (antinuclear antibody): Code(s): R76.8 - Other specified abnormal immunological findings in serum (2) Morbid obesity with BMI of 50.0-59.9, adult: Code(s): E66.01 - Morbid (severe) obesity due to excess calories; Z68.43 - Body mass index [BMI] 50.0-59.9, adult (3) Right knee pain: Code(s): M25.561 - Pain in right knee Qualifiers: Chronicity: chronic Qualified Code(s): M25.561 - Pain in right knee; G89.29 - Other chronic pain (4) Osteoarthritis of both knees: Code(s): M17.0 - Bilateral primary osteoarthritis of knee Qualifiers: Osteoarthritis type: primary Qualified Code(s): M17.0 - Bilateral primary osteoarthritis of knee Plan #+JAZZMINE/CCP: The results of his serology was positive for weakly CCP. His ESR was also normalized, the CRP was improved but still remains elevated. #Right knee pain: I discussed at length with the patient today that he might have onset of rheumatoid arthritis given the weakly positive CCP (27). However he does not have the typical clinical presentation of rheumatoid arthritis such as hand pain tenderness and synovitis. His right knee is his only joint complaint at this time. I recommend to the patient that we treat the knee instead of starting a systemic medication for rheumatoid. Patient agrees with this plan. So we will give him an injection today and start physical therapy. The patient tolerated the right knee injection today. In going forward we will keep in mind that prednisone may not be therapeutic for this patient for joint pain given that he was on high dose steroids and reports no improvement to his joint pain. We will follow-up in 3 months after he has had some time to start physical therapy. An reassess Initial assessment #Right Knee Pain/OA/Morbid Obesity(BMI52.8):Mr. Duke presents today for the evaluation of right knee pain. I think his knee pain is possibly a consequence of his morbid obesity. I do not have the x-rays available to me to see the extent of the osteoarthritis. I think, and the patient agrees that he would benefit from orthopedic referral for possible HLA injections. We will obtain the x-rays and assess to see if this is possible. Nonetheless I will put in of the ortho referral at this time. I also discussed with the patient steroid injections but it is better to hold off on doing that if we are sending him to ortho. I will also prescribe meloxicam 15 mg q.d.. Based on his records the patient did use that before and had stated that it helped his knees. I discussed with patient the concerns for using meloxicam and recommend that he take it with food to avoid abdominal discomfort. His kidney and liver functions are adequate at this time to use meloxicam. His CRP is elevated but I think that is related to his obesity and not likely an inflammatory pathology for joints. The patient has been on 60 mg of prednisone taper down to 30 and does not feel any relief from his knee pain while taking prednisone. This is another indicator that it is more likely that his knee pain is from mechanical causes such as osteoarthritis and also secondary to the obesity. He would certainly benefit from weight loss #+JAZZMINE: After careful initial review of history, records, available diagnostics and physical examination, it does not appear at this time that the patient has an underlying connective tissue disease or related inflammatory process. As outlined in the HPI and PE there are no signs and symptoms of connective tissue disease. Nonetheless I will order additional labs to evaluate further. I will or so order uric acid levels. Orders: Orders PT Evaluation and Treatment Today M25.561 - Pain in right knee, M25.562 - Pain in left knee Coding Level of Care Code Est Pt Level 3 (01366) Diagnoses Positive JAZZMINE (antinuclear antibody) R76.8 Morbid obesity with BMI of 50.0-59.9, adult E66.01; Z68.43 Chronic pain of right knee M25.561; G89.29 Chronicity: chronic Primary osteoarthritis of both knees M17.0 Osteoarthritis type: primary CPT Codes Coding - 20531 Large joint: 34244 - Large joint ([id number])
== END 2023-10-16 13:52 | disposition home or self-care (01) ==
PROVIDERS: PCP Internal Medicine; Visit Provider Nurse Practitioner Family
DX: R76.8 Other specified abnormal immunological findings in serum (principal); M25.561 Pain in right knee; E66.01 Morbid (severe) obesity due to excess calories; Z68.43 Body mass index [BMI] 50.0-59.9, adult; G89.29 Other chronic pain; M17.0 Bilateral primary osteoarthritis of knee
CPT/HCPCS: 20610; 99213

== ENCOUNTER → 2023-10-16 12:45 | Outpatient (BNVA) | payer OTHER, SELFPAY | PROVIDERS: PCP Internal Medicine; Visit Provider Nurse Practitioner Family | DX: M17.0 Bilateral primary osteoarthritis of knee (principal); R76.8 Other specified abnormal immunological findings in serum; G89.29 Other chronic pain; M25.561 Pain in right knee; E66.01 Morbid (severe) obesity due to excess calories; Z68.43 Body mass index [BMI] 50.0-59.9, adult | CPT/HCPCS: 20610; J3301 ==

== ENCOUNTER 2023-11-27 10:00 | Outpatient (RCR) | payer OTHER, SELFPAY ==
--- NOTE | 2023-11-02 13:46 | MHC.PT.EP ---
[facility] [place] Office [place] Office [place] Office [address] [place] [address] [phone] F: [phone] F: [phone] F: [phone] F: [phone] Physical Therapy Plan of Care Date of Evaluation: 10/30/23 Date of Surgery: N/A Diagnosis: B knee pain, R > L Assessment: Pt is a 52yo male who was referred to PT for B knee pain, R > L. Skilled PT indicated to address impairments noted on eval including HS weakness, hyperextension of knees, patellar tracking issues, with goal to reduce pain and maximize functional mobility. Pt in agreement with POC and is motivated to participate. Frequency and Duration: The patient will be seen 2x/week, x 4 weeks Short Term Goals: 1. Improve R knee flexion ROM by 10 degrees in 2 weeks. 2. In 2 weeks, patient will be complete phase 1 HEP I with > 75% compliance. 3. In 2 weeks, improve medial and lateral HS strength by 1/2 grade. Private Detective Goals: 1. In 4 weeks, patient will be able to maintain R SLS x 15 seconds indicating reduced pain and increased stability of LE. 2. In 4 weeks, patient will be able to go up and down 1 flight of stairs while carrying 10# in one hand without increased pain, reciprocal pattern. Treatment Plan: Modalities to reduce pain, spasms and effusion. Manual therapy to restore motion and function. Therapeutic exercise to improve strength and flexibility. Neuromuscular re-education for posture and balance. Therapeutic activities to return to functional activities of daily living. Electronically signed by: Kecia Lopez PT, DPT Please sign and return to therapist. Thank you for your referral.
--- NOTE | 2023-11-27 11:24 | MHC.PT.DC ---
[facility] [place] Office [place] Office [place] Office [address] [place] [address] [phone] F: [phone] F: [phone] F: [phone] F: [phone] Physical Therapy Discharge Report Diagnosis: B knee pain, R > L Date of Surgery: N/A Date of Evaluation: 10/30/23 Date of Discharge: 11/27/23 Treatments to Date: 9 Cancellations to Date: 0 No Shows to Date: 0 Discharge Status: Achieved Goals Improved Function Independent with HEP Discharge Summary: Pt has met all goals in POC, including improvement in SLS ability R LE, knee ROM flexion equal both sides, and HS/hip strengthening. Pt in agreement with D/C to HEP. Pt recommended to complete HEP daily for 2 months, including additional core/hip exercises to reduce low back pain. Pt ed re: return to PT for low back pain as needed and if indicated by MD. Pt in agreement. Electronically signed by: Kecia Lopez PT, DPT Please sign and return to therapist. Thank you for your referral.
== END 2023-11-27 11:25 | disposition home or self-care (01) ==
LOC: HO.PT 10:00
PROVIDERS: PCP Internal Medicine; Visit Provider Nurse Practitioner Family
DX: M25.561 Pain in right knee (principal); M25.562 Pain in left knee
CPT/HCPCS: 97035; 97110; 97116; 97140; 97162; 97530

== ENCOUNTER 2023-11-30 12:18 | Outpatient (AMB) | payer OTHER, SELFPAY ==
[2023-11-30 12:22] VITALS: BP 140/82; PULSE 86; O2SAT 92; BMI 54.5
--- NOTE | 2023-11-30 12:22 | MHC.PC.OV ---
Vital Signs 11/30/23 12:22 Height 5 ft 7 in Weight 348 lb BMI 54.5 BP 140/82 H Blood Pressure Location Lt brachial Position Sitting Pulse 86 Pulse Source Pulse Oximeter Pulse Oximetry (%) 92 Oxygen Delivery Method Room Air Intake Visit Reasons: 3 month f/u, Back Pain, Cold Symptoms Allergies Seasonal Allergies Allergy (Verified 11/30/23 12:40) Unknown Medication List - Last Reconciled 11/30/23 by Bon Odonnell MD albuterol 90 mcg/actuation mcg inhalation cholecalciferol (vitamin D3) 50 mcg PO DAILY 90 days loratadine 10 mg PO DAILY meloxicam 15 mg PO DAILY Tobacco use date assessed: 10/04/23 Dental Screening Dental Screen Date: 10/04/23 HPI 3 month f/u HPI Details Patient comes in today for his follow up visit States that he has been experiencing on and off cough/cold symptoms since last week He denies any fever or sore throat; denies any headaches or dizziness He denies any chest pains, no SOB States that he does have a history of multiple allergies and his respiratory symptoms may be partly due to his allergies States that he has been taking Loratadine 10 mg QD PRN with some relief He is requesting for a referral for further allergy testing He also reports experiencing increased pain over his lower back lately Does not recall any recent injury or trauma to his lower back No nausea/vomiting, no abdominal pain No change in bowel habits noted [facility] Medical History (Updated 12/03/23 @ 00:55 by Bon Odonnell MD) Allergic rhinitis Osteoarthritis of both knees Right knee pain Asthma Obstructive sleep apnea Hypercholesteremia Bursitis of left shoulder Intermittent asthma Morbid obesity with BMI of 50.0-59.9, adult GERD (gastroesophageal reflux disease) Environmental allergies COVID-19 Surgical History No pertinent past surgical history Family History Other Family history non-contributory Social History Housing: House Alcohol intake: current Alcohol intake frequency: holidays/special occasions only Patient Tobacco Use Status: Never used Tobacco e-Cigarette/Vaping Use: Never Used service: No Current occupational status: employed 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 1. Little interest or pleasure in doing things: not at all 2. Feeling down, depressed, or hopeless: not at all 3. Trouble falling or staying asleep, or sleeping too much: not at all 4. Feeling tired or having little energy: not at all 5. Poor appetite or overeating: not at all 6. Feeling bad about yourself - or that you are a failure or have let yourself or your family down: not at all 7. Trouble concentrating on things, such as reading the newspaper or watching television: not at all 8. Moving or speaking so slowly that other people could have noticed. Or the opposite - being so fidgety or restless that you have been moving around a lot more than usual: not at all 9. Thoughts that you would be better off or of hurting yourself in some way: not at all Total score: 0 Depression Screening Interpretation: Negative Depression Screening Done: Yes 51868 - PHQ-9 Billing: Yes Source: Developed by Drs. Michele Chen, Sima Grewal, Cain Juarez and colleagues, with an educational dalton from [employer]. Thrive Questionnaire Date Thrive assessed: 10/04/23 AUDIT C Alcohol Use Questionnaire (AUDIT-C) 1. How often do you have a drink containing alcohol?: Monthly or less 2. How many drinks containing alcohol do you have on a typical day when you are drinking?: 1 or 2 3. How often do you have six or more drinks on one occasion?: Never Total Score: 1 Score Reviewed/Action Taken: Yes FAUSTINA-7 AMB Questionnaire FAUSTINA-7 Date FAUSTINA - 7 assessed: 10/04/23 Source: Developed by Drs. Michele Chen, Cain Lobato and colleagues, with an educational dalton from [employer]. Review of Systems Const Denies chills, Denies fatigue, Denies fever(s) and Denies headache(s) ENT Denies dysphagia, Denies dizziness, Denies otalgia, Denies headache(s), Reports nasal congestion (mild), Denies neck pain, Denies odynophagia and Denies sore throat Card Denies chest pain, Denies palpitations and Denies dyspnea Resp Denies chest congestion, Reports cough (on and off, mostly non-productive) and Denies dyspnea GI Denies abdominal pain, Denies constipation, Denies dysphagia, Denies heartburn, Denies diarrhea, Denies nausea, Denies odynophagia and Denies vomiting Denies dysuria, Denies nocturia and Denies urinary frequency Musc Reports back pain (increased over the lower back lately) and Denies neck pain Skin/Breast Denies rash Neuro Denies dizziness and Denies headache(s) Endo Denies fatigue and Denies palpitations Physical exam (Primary Care) Vital Signs: Last Vital Signs Pulse 86 11/30/23 12:22 BP 140/82 H 11/30/23 12:22 Pulse Ox 92 11/30/23 12:22 Oxygen Delivery Method Room Air 11/30/23 12:22 BMI result Body Mass Index 54.5 Tobacco/Smoking Status: Tobacco use Status Tobacco use date assessed 10/04/23 11/30/23 12:27 Patient Tobacco Use Status Never used Tobacco 11/30/23 12:27 e-Cigarette/Vaping Use Never Used 11/30/23 12:27 PHQ-9: PHQ-9 Score PHQ-9: Total score 0 11/30/23 12:45 Depression Screening Interpretation: Negative Thrive Assessment: Date of Thrive Assessment Date Thrive assessed 10/04/23 11/30/23 12:27 Assessment and Plan Assessment & Plan (1) Low back pain: Code(s): M54.50 - Low back pain, unspecified Qualifiers: Chronicity: unspecified Back pain laterality: right Sciatica presence: unspecified whether sciatica present Qualified Code(s): M54.50 - Low back pain, unspecified Plan: Reinforced activity and weight-lifting restrictions Will send him for x-rays of the lumbar spine for further evaluation Continue Cyclobenzaprine 10 mg Q HS PRN (2) Allergic rhinitis: Code(s): J30.9 - Allergic rhinitis, unspecified Qualifiers: Allergic rhinitis trigger: unspecified Allergic rhinitis seasonality: non-seasonal Qualified Code(s): J30.89 - Other allergic rhinitis Plan: Per request, will refer him to allergy and immunololgy for further evaluation and management / allergy testing Continue Loratadine 10 mg QD PRN (3) Asthma: Code(s): J45.909 - Unspecified asthma, uncomplicated Qualifiers: Asthma severity: mild Asthma persistence: intermittent Asthma complication type: uncomplicated Qualified Code(s): J45.20 - Mild intermittent asthma, uncomplicated Plan: Continue Albuterol HFA 1 to 2 inhalations Q 6 hours PRN He has also been referred for PFTs for further evaluation - this is still awaiting scheduling (4) Arthralgia: Code(s): M25.50 - Pain in unspecified joint Qualifiers: Joint pain location: unspecified Qualified Code(s): M25.50 - Pain in unspecified joint Plan: His initial labs came back positive for JAZZMINE, and he has been referred to rheumatology for further evaluation and management as a result He was seen by rheumatology a few weeks ago and has been sent for some additional labs for further evaluation - was advised that at this time, he does not have any evidence of inflammatory conditions He was also referred to orthopedics for his right knee pain and he was advised that this is more likely due to OA Continue Meloxicam 15 mg QD with food PRN for joint pains (5) Obstructive sleep apnea: Code(s): G47.33 - Obstructive sleep apnea (adult) (pediatric) Plan: Continue using his CPAP device when sleeping at night daily (6) GERD (gastroesophageal reflux disease): Code(s): K21.9 - Gastro-esophageal reflux disease without esophagitis Qualifiers: Esophagitis presence: without esophagitis Qualified Code(s): K21.9 - Gastro-esophageal reflux disease without esophagitis Plan: Reinforced dietary restrictions in GERD to help minimize flare ups of his GI symptoms (7) Morbid obesity with BMI of 50.0-59.9, adult: Code(s): E66.01 - Morbid (severe) obesity due to excess calories; Z68.43 - Body mass index [BMI] 50.0-59.9, adult Plan: Reinforced diet/exercise as tolerated/lose weight Plan Follow up in 6 months Orders: Orders XR lumbar spine 2-3V 11/30/23 M54.50 - Low back pain, unspecified Referrals Allergy & Immunology Referral J30.9 - Allergic rhinitis, unspecified, Z91.09 - Other allergy status, other than to drugs and biological substances Coding Level of Care Code Est Pt Level 4 (87500) Diagnoses Right low back pain, unspecified chronicity, unspecified whether sciatica present M54.50 Chronicity: unspecified Back pain laterality: right Sciatica presence: unspecified whether sciatica present Non-seasonal allergic rhinitis, unspecified trigger J30.89 Allergic rhinitis trigger: unspecified Allergic rhinitis seasonality: non-seasonal Mild intermittent asthma without complication J45.20 Asthma severity: mild Asthma persistence: intermittent Asthma complication type: uncomplicated Arthralgia, unspecified joint M25.50 Joint pain location: unspecified Obstructive sleep apnea G47.33 Gastroesophageal reflux disease without esophagitis K21.9 Esophagitis presence: without esophagitis Morbid obesity with BMI of 50.0-59.9, adult E66.01; Z68.43
== END 2023-11-30 12:51 | disposition home or self-care (01) ==
PROVIDERS: PCP Internal Medicine; Visit Provider Internal Medicine
DX: M54.50 Low back pain, unspecified (principal); J30.89 Other allergic rhinitis; J45.20 Mild intermittent asthma, uncomplicated; M25.50 Pain in unspecified joint; G47.33 Obstructive sleep apnea (adult) (pediatric); K21.9 Gastro-esophageal reflux disease without esophagitis
CPT/HCPCS: 99214

== ENCOUNTER 2024-01-16 08:29 | Outpatient (AMB) | payer OTHER, SELFPAY ==
[2024-01-16 08:52] VITALS: BP 140/82; PULSE 73; O2SAT 95; BMI 55.2
--- NOTE | 2024-01-16 08:52 | A.OFFVIS_ITS ---
Vital Signs 01/16/24 08:52 Height 5 ft 7 in Weight 352 lb 11.834 oz BMI 55.2 BP 140/82 H Blood Pressure Location Rt brachial Position Sitting Pulse 73 Pulse Source Pulse Oximeter Pulse Oximetry (%) 95 Oxygen Delivery Method Room Air Intake Visit Reasons: Right Knee Pain/+CCP Intake Note: Patient last seen 10/16/23 by Claudio, presents today for right knee pain follow up. Patient has been going to PT. Reports new pain in lower back Lamp Developer Required: No Accompanied by: Self / Same As Patient Allergies Seasonal Allergies Allergy (Verified 01/16/24 08:58) Unknown HPI Comments Details: Mr. Duke who returns for follow-up of right knee pain and positive JAZZMINE. He did see ortho who he says he has some OA to the right knee. He reports that the injection from last visit, gave a 10 percent improvement. His right knee pain continues to be more evident with climbing stairs but he says there has always a dull ache without activity. The knee is mildly swollen today. Initial history 09/2023 Mr. Duke 52-year-old male presents today for initial evaluation of right knee pain and positive JAZZMINE. Patient was referred by primary care. He has a PMH of Dyslipidemia, asthma, morbid obesity, GERD. The patient reports that he has been having increased knee pain more than normal. The right knee hurts more than the left and hurts usually with movements like when he is walking or climbing stairs. He has had knee x-rays done either July last year or the beginning of August this year. In addition to his knee, he has pain to the left shoulder for which he receives corticosteroid injections. He also endorses low back pain which she says is not frequent and manageable. He also describes that sometimes he feels what he describes as a Zing on the dorsum of his left hand that starts from his elbow or his shoulder and shoots down to his finger. The patient is currently on prednisone 30 mg tapered from 60 mg per day for asthma exacerbation. The patient denies prolonged morning stiffness that last more than an hour. He denies episodes of joint swelling, warmth and redness. He denies rashes, Raynaud's, sun sensitivity, dry eyes, red burning eyes and dry mouth. He denies abdominal and urinary concerns and has no problems swallowing his food. He denies chronic fevers, fatigue and unintended weight loss or weight gain. 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 Rheumatoid arthritis, seropositive Allergic rhinitis Osteoarthritis of both knees Right knee pain Asthma Obstructive sleep apnea Hypercholesteremia Bursitis of left shoulder Intermittent asthma Morbid obesity with BMI of 50.0-59.9, adult GERD (gastroesophageal reflux disease) Environmental allergies COVID-19 Surgical History No pertinent past surgical history Family History Other Family history non-contributory Social History Housing: House Alcohol intake: current Alcohol intake frequency: holidays/special occasions only Patient Tobacco Use Status: Never used Tobacco e-Cigarette/Vaping Use: Never Used service: No Current occupational status: employed 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 Constitutional: Well-nourished well-developed very friendly male awake alert and oriented x3 in no acute distress HEENT: Normocephalic and atraumatic. External auditory canals without erythema or edema bilaterally. Moist mucous membranes. No pharyngeal erythema or exudates. Skin: Warm and dry. No rashes or lesions noted. Neck: Full and painless range of motion. No cervical lymphadenopathy. Cardio: Regular rate and rhythm. No murmurs, gallops, or rubs. No lower extremity edema. No JVD. Pulmonary: No respiratory distress. No accessory muscle usage. Musculoskeletal: Normal range of motion in joints throughout the body. No deformity or other signs of injury. Bilateral lower extremity examination shows good capillary refill, no skin lesions noted, normal sensation light touch Bilateral knee examination (for right greater than left )shows minimal effusions, minimal crepitus with range of motion, tenderness along his medial joint lines, positive Kwame's tests Neuro: Alert and oriented x4. Cranial nerves 2-12 grossly intact. No focal deficits appreciated. Results Reviewed Results Reviewed: X-rays of the patient's bilateral knee show mild joint space narrowing, no acute bony abnormalities Laboratory Tests 10/02/23 14:18 WBC 11.1 H RBC 5.52 Hgb 15.2 Hct 46.8 ESR 13 C-Reactive Protein 1.23 H IgG Total 1385 IgA Total 378 H IgM 80 Cycl Citrul Peptide IgG 27 H Sm ([place]) Antibody <1.0 NEG SM/FLUME MAKER IgG Antibody <1.0 NEG WBC - Was on high dose Prednisone for Asthma Flare during this time. Assessment & Plan Assessment & Plan (1) Positive JAZZMINE (antinuclear antibody): Code(s): R76.8 - Other specified abnormal immunological findings in serum Category: Medical (2) Morbid obesity with BMI of 50.0-59.9, adult: Code(s): E66.01 - Morbid (severe) obesity due to excess calories; Z68.43 - Body mass index [BMI] 50.0-59.9, adult Category: Medical (3) Right knee pain: Code(s): M25.561 - Pain in right knee Category: Medical Qualifiers: Chronicity: chronic Qualified Code(s): M25.561 - Pain in right knee; G89.29 - Other chronic pain (4) Osteoarthritis of both knees: Code(s): M17.0 - Bilateral primary osteoarthritis of knee Category: Medical Qualifiers: Osteoarthritis type: primary Qualified Code(s): M17.0 - Bilateral primary osteoarthritis of knee (5) Rheumatoid arthritis, seropositive: Code(s): M05.9 - Rheumatoid arthritis with rheumatoid factor, unspecified Category: Medical (6) 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 His ESR was also normalized, the CRP was improved but still remains elevated. I discussed at length with the patient today that he might have onset of rheumatoid arthritis given the weakly positive CCP (27). His IgA was elevated but he also was in an asthma flare during that time. However he does not have the typical clinical presentation of rheumatoid arthritis such as hand pain tenderness and synovitis. His right knee is his main joint c omplaint at this time. We did treat the knee with corticosteroid injection and PT with minimal improvement. The patient desires to start a immunomodulating medication and assess for improvement. I discussed with patient that good effcacy should be expected in 6 months if this is RA in the knee. I think this is a good plan. We will start MTX 2.5 mg 6 pills QW and Folic Acid 1 mg per day. In going forward we will keep in mind that prednisone may not be therapeutic for this patient for joint pain given that he was on high dose steroids and reports no improvement to his joint pain. It may also mean that the pain regular OA and not an inflammatory arthritis. #Penitentiary Use: We will obtain labs now and in 8 weeks. We discuss possible side effects of MTX to include but not limited to liver toxicity, ETOH effects on liver, cytopenias, brain fog, fatigue and GI symptoms. We discuss the benefit of Folic Acid with MTX use. Patient is non-smoker. He denies Respitory and cardiac symptoms. We will hold getting a chest Xray. Elevated WBC in sep - he patient was on prednisone for asthma during this time. I spent 30 minutes reviewing chart, evalauting patient and documenting. We will follow-up in 3 months , labs in 2 months on MTX Initial assessment #Right Knee Pain/OA/Morbid Obesity(BMI52.8):Mr. Duke presents today for the evaluation of right knee pain. I think his knee pain is possibly a consequence of his morbid obesity. I do not have the x-rays available to me to see the extent of the osteoarthritis. I think, and the patient agrees that he would benefit from orthopedic referral for possible HLA injections. We will obtain the x-rays and assess to see if this is possible. Nonetheless I will put in of the ortho referral at this time. I also discussed with the patient steroid injections but it is better to hold off on doing that if we are sending him to ortho. I will also prescribe meloxicam 15 mg q.d.. Based on his records the patient did use that before and had stated that it helped his knees. I discussed with patient the concerns for using meloxicam and recommend that he take it with food to avoid abdominal discomfort. His kidney and liver functions are adequate at this time to use meloxicam. His CRP is elevated but I think that is related to his obesity and not likely an inflammatory pathology for joints. The patient has been on 60 mg of prednisone taper down to 30 and does not feel any relief from his knee pain while taking prednisone. This is another indicator that it is more likely that his knee pain is from mechanical causes such as osteoarthritis and also secondary to the obesity. He would certainly benefit from weight loss #+JAZZMINE: After careful initial review of history, records, available diagnostics and physical examination, it does not appear at this time that the patient has an underlying connective tissue disease or related inflammatory process. As outlined in the HPI and PE there are no signs and symptoms of connective tissue disease. Nonetheless I will order additional labs to evaluate further. I will or so order uric acid levels. Orders: Orders C Reactive Protein Today M05.9 - Rheumatoid arthritis with rheumatoid factor, unspecified T Spot TB Today M05.9 - Rheumatoid arthritis with rheumatoid factor, unspecified, Z11.9 - Encounter for screening for infectious and parasitic diseases, unspecified Erythrocyte Sedimentation Rate Today M05.9 - Rheumatoid arthritis with rheumatoid factor, unspecified, Z79.631 - residential (current) use of antimetabolite agent Complete Blood Count Auto Diff Today M05.9 - Rheumatoid arthritis with rheumatoid factor, unspecified, Z79.631 - residential (current) use of antimetabolite agent Comprehensive Met. Panel Today M05.9 - Rheumatoid arthritis with rheumatoid factor, unspecified, Z79.631 - exterminator termite (current) use of antimetabolite agent Comprehensive Met. Panel 8 Weeks Z79.631 - exterminator termite (current) use of antimetabolite agent Erythrocyte Sedimentation Rate Today M05.9 - Rheumatoid arthritis with rheumatoid factor, unspecified, Z11.9 - Encounter for screening for infectious and parasitic diseases, unspecified Complete Blood Count Auto Diff Today M05.9 - Rheumatoid arthritis with rheumatoid factor, unspecified Hepatitis A,B,C Profile Today Z79.631 - residential (current) use of antimetabolite agent C Reactive Protein 8 Weeks M05.9 - Rheumatoid arthritis with rheumatoid factor, unspecified, Z79.631 - exterminator termite (current) use of antimetabolite agent Complete Blood Count Auto Diff 8 Weeks M05.9 - Rheumatoid arthritis with rheumatoid factor, unspecified, Z79.631 - exterminator termite (current) use of antimetabolite agent Erythrocyte Sedimentation Rate 8 Weeks M05.9 - Rheumatoid arthritis with rheumatoid factor, unspecified, Z79.631 - residential (current) use of antimetabolite agent Medications: New folic acid 1 mg PO DAILY 90 tabs 1RF Z79.631 - residential (current) use of antimetabolite agent methotrexate sodium 15 mg (6 x 2.5 mg) PO QWEEK 72 tabs 0RF G89.29 - Other chronic pain, M05.9 - Rheumatoid arthritis with rheumatoid factor, unspecified, M25.561 - Pain in right knee Coding Level of Care Code Est Pt Level 4 (55860) Complex EM visit Add On G2211 Diagnoses Positive JAZZMINE (antinuclear antibody) R76.8 Morbid obesity with BMI of 50.0-59.9, adult E66.01; Z68.43 Chronic pain of right knee M25.561; G89.29 Chronicity: chronic Primary osteoarthritis of both knees M17.0 Osteoarthritis type: primary Rheumatoid arthritis, seropositive M05.9 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
== END 2024-01-16 09:32 | disposition home or self-care (01) ==
PROVIDERS: PCP Internal Medicine; Visit Provider Nurse Practitioner Family
DX: R76.8 Other specified abnormal immunological findings in serum (principal); M25.561 Pain in right knee; M05.79 Rheumatoid arthritis with rheumatoid factor of multiple sites without organ or systems involvement; Z79.631 Long term (current) use of antimetabolite agent; E66.01 Morbid (severe) obesity due to excess calories; Z68.43 Body mass index [BMI] 50.0-59.9, adult; G89.29 Other chronic pain; M17.0 Bilateral primary osteoarthritis of knee
CPT/HCPCS: 99214; G2211

== ENCOUNTER → 2024-01-16 08:29 | Outpatient (BNVA) | payer OTHER, SELFPAY | PROVIDERS: PCP Internal Medicine; Visit Provider Nurse Practitioner Family ==

== ENCOUNTER 2024-01-16 09:46 | Outpatient (REF) | payer OTHER, SELFPAY ==
[2024-01-16 11:14] LABS: MANUAL DIFF FLAG NO
[2024-01-16 11:18] LABS: Basophils Absolute Auto 0.1 X10*3/uL (0.0-0.2); Basophils Percent Auto 0.5 % (0-2); Eosinophils Absolute Auto 0.3 X10*3/uL (0.0-0.4); Eosinophils Percent Auto 3.3 % (0-4); Hematocrit 44.7 % (42.0-52.0); Hemoglobin 14.4 g/dl (14.0-18.0); Imm Gran Abs Auto 0.05 X10*3/uL (0.00-0.03); Imm Gran Pct Auto 0.5 % (0.0-0.4); Lymphocytes Absolute Auto 1.8 X10*3/uL (1.2-4.9); Lymphocytes Percent Auto 19.5 % (20-40); Mean Corpuscular HGB Conc 32.2 g/dl (31.0-36.0); Mean Corpuscular Hemoglobin 27.8 pg (27.0-33.0); Mean Corpuscular Volume 86.3 fL (80.0-98.0); Mean Platelet Volume 9.5 fL (9.4-12.4); Monocytes Percent Auto 10.4 % (2-11); Neutrophils Absolute Auto 6.1 x10*3/uL (2.0-8.3); Neutrophils Percent Auto 65.8 % (45-73); Platelet Count 321 X10*3/uL (160-400); Red Blood Count 5.18 X10*6/uL (4.60-5.80); Red Cell Distribution Width 13.8 % (11.0-16.0); White Blood Count 9.3 X10*3/uL (4.8-10.8)
[2024-01-16 11:30] LABS: Alanine Aminotransferase 18 U/L (0-40); Albumin Level 3.7 g/dL (3.5-5.0); Alkaline Phosphatase 53 U/L (39-117); Anion Gap 13 (12-20); Aspartate Amino Transferase 15 U/L (5-37); Bilirubin Total 0.4 mg/dL (0.0-1.0); Blood Urea Nitrogen 14 mg/dL (9-16); C Reactive Protein 1.81 mg/dL (< or = 0.50); Calcium 9.1 mg/dL (8.4-10.2); Carbon Dioxide 27 mmol/L (22-29); Chloride 108 mmol/L (96-108); Estimated Glomerular Filt Rate > 60; Glucose Random 85 mg/dL (60-115); Potassium 4.3 mmol/L (3.3-5.1); Sodium 144 mmol/L (135-145); Total Protein 7.5 g/dL (6.5-8.0)
[2024-01-16 11:48] LABS: HBS Num1 0.24 mIU/mL (0-7.99); HBc Num1 0.12 S/CO (0.00-0.79); HBsAGNum1 0.27 S/CO (0.00-0.99); Hepatitis A Antibody IgM 0.17 Index (0-0.79); Hepatitis B Core Antibody Nonreactive (Nonreactive); Hepatitis B Surface Antigen Negative (Negative); ~HepC Num1 0.11 S/CO (0.00-0.79); ~Hepatitis A Antibody IgM Nonreactive (Nonreactive); ~Hepatitis B Surface Antibody NONREACTIVE (Nonreactive); ~Hepatitis C Antibody Nonreactive (Nonreactive)
[2024-01-16 11:57] LABS: Erythrocyte Sedimentation Rate 26 MM/HR (0-15)
[2024-01-19 10:13] LABS: TS Negative Control Passed; TS Panel A 1; TS Panel B 0; TS Positive Control Passed; TSpotTB Negative (Negative)
== END 2024-01-16 09:47 | disposition home or self-care (01) ==
LOC: HO.10HDL 09:46
PROVIDERS: Visit Provider Nurse Practitioner Family
DX: M05.9 Rheumatoid arthritis with rheumatoid factor, unspecified (principal); Z11.9 Encounter for screening for infectious and parasitic diseases, unspecified; Z79.631 Long term (current) use of antimetabolite agent
CPT/HCPCS: 36415; 80053; 85025; 85652; 86140; 86481; 86704; 86706; 86709; 86803; 87340

== ENCOUNTER 2024-03-10 12:55 | Outpatient (AMB) | payer OTHER, SELFPAY ==
--- NOTE | 2024-03-10 12:59 | MHC.OFFVIS ---
Vital Signs 03/10/24 13:03 Height 5 ft 7 in Weight 352 lb BMI 55.1 Intake Visit Reasons: OV, bilateral knee pain follow up Intake Note: Carl is a 53 yo male who presents today with complaints of progressively worsening right knee pain and giving way. The patient has done formal physical therapy in the past. He states that the therapy significantly improved his left knee pain but seemed to aggravate his right knee pain. His right knee pain and mechanical symptoms have gotten worse over the last year in spite of continued non operative treatments. He has failed the last 6 weeks of conservative treatment. He was seen by Rheumatology. Has been on methotrexate for the last 5 weeks. States that the medicine has given him mild relief. He states that his right knee will give out several times per day. He notices the instability when he is going up and down stairs or ladders as well as when he gets out of a chair. He has taken Tylenol and meloxicam as well which gave him minimal relief. He had a cortisone injection given into his right knee earlier this year by another provider which gave him minimal relief. 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 Rheumatoid arthritis, seropositive Allergic rhinitis Osteoarthritis of both knees Right knee pain Asthma Obstructive sleep apnea Hypercholesteremia Bursitis of left shoulder Intermittent asthma Morbid obesity with BMI of 50.0-59.9, adult GERD (gastroesophageal reflux disease) Environmental allergies COVID-19 Surgical History No pertinent past surgical history Family History Other Family history non-contributory Social History Housing: House Alcohol intake: current Alcohol intake frequency: holidays/special occasions only Patient Tobacco Use Status: Never used Tobacco e-Cigarette/Vaping Use: Never Used service: No Current occupational status: employed 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, 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, 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 Current occupational exposures/hazards: No Cognitive needs: No Hearing needs: No Vision needs: Yes Physical Exam Const Other: Well-nourished well-developed very friendly male awake alert and oriented x3 in no acute distress Extrem Other: Bilateral lower extremity examination shows good capillary refill, no skin lesions noted, normal sensation light touch Right knee examination shows a minimal effusion, mild crepitus with range of motion, tenderness along his medial joint line, positive Kwame's test, no instability Results Reviewed Results Reviewed: Standing full weight-bearing x-rays of the patient's right knee show mild joint space narrowing, no acute bony abnormalities Assessment & Plan Assessment & Plan (1) Right knee pain: Code(s): M25.561 - Pain in right knee Category: Medical Qualifiers: Chronicity: chronic Qualified Code(s): M25.561 - Pain in right knee; G89.29 - Other chronic pain Plan Mr. Duke presents with progressively worsening right knee pain and mechanical symptoms most likely due to a tear of his medial meniscus. The patient has failed the last 6 weeks of conservative treatment. I will send him for an MRI of his right knee for further evaluation. I will see him back following the MRI to discuss the findings and treatment options. He will continue with his activity modifications meantime. Feel free to call me at any time should questions regarding his orthopedic management arise. I spent 20 minutes in reviewing the patient's records and imaging studies, seeing the patient and documenting in the medical record. Orders: Orders MR knee RT wo con Today G89.29 - Other chronic pain, M25.561 - Pain in right knee Coding Level of Care Code Est Pt Level 3 (74260) Diagnoses Chronic pain of right knee M25.561; G89.29 Chronicity: chronic
[2024-03-10 13:03] VITALS: BMI 55.1
== END 2024-03-10 13:15 | disposition home or self-care (01) ==
PROVIDERS: PCP Internal Medicine; Visit Provider Orthopaedic Surgery
DX: M25.561 Pain in right knee (principal); G89.29 Other chronic pain
CPT/HCPCS: 99213

== ENCOUNTER → 2024-03-10 12:55 | Outpatient (BNVA) | payer OTHER, SELFPAY | PROVIDERS: PCP Internal Medicine; Visit Provider Orthopaedic Surgery ==

== ENCOUNTER 2024-04-08 19:42 | Outpatient (REF) | payer OTHER, SELFPAY ==
--- NOTE | ~2024-04-08 | MR_ITS ---
EXAMINATION: MR KNEE WITHOUT CONTRAST, RIGHT CLINICAL INFORMATION: Pain in the right knee. COMPARISON: None available. TECHNIQUE: MRI of the knee without contrast was performed using routine sequences on a high-field scanner. FINDINGS: MENISCI: Medial Meniscus: Question subtle irregularity of the free edge of the posterior horn suspicious for tear. Lateral Meniscus: Intact. LIGAMENTS: Cruciate: ACL: Superficial partial tear of the distal ACL versus localized synovitis between the ACL and the transverse meniscal ligament as seen on sagittal image 17 series 9. No transverse defect in the ligament. PCL: Intact. Collateral: Intact . EXTENSOR MECHANISM: Intact. ARTICULAR CARTILAGE/BONE: Patellofemoral Compartment: There is superficial partial-thickness cartilage loss in the central trochlear cartilage. Patellar cartilage is normal. Overall mild patellofemoral arthrosis. Medial Compartment: There is focal nonuniform up to high-grade cartilage loss in the posterior central weightbearing portion of the femoral articular surface measuring over 6 mm transverse and 18 mm AP. Small marginal osteophytes about the compartment. Tibial compartment is normal. Overall mild/focal arthrosis. Lateral Compartment: Normal. JOINT FLUID AND BURSAE: There is a mild joint effusion. MISCELLANEOUS: Mild generalized edema in the subcutaneous soft tissues. MR/MR knee RT wo con IMPRESSION: 1. Possible tear of the free edge of the posterior horn of the medial meniscus. 2. Possible superficial partial tear of the distal anterior fibers of the ACL versus localized synovitis between the ACL and the transverse meniscal ligament. Favor synovitis. 3. Mild patellofemoral arthrosis. 4. Mild/focal arthrosis of the medial compartment. 5. Mild joint effusion. Electronically signed by: Kyle Camejo MD 04/13/2024 12:55 PM EDT
== END 2024-04-08 19:43 | disposition home or self-care (01) ==
LOC: HO.MRI 19:42
PROVIDERS: PCP Internal Medicine; Visit Provider Orthopaedic Surgery
DX: M25.561 Pain in right knee (principal); G89.29 Other chronic pain
CPT/HCPCS: 73721

== ENCOUNTER 2024-04-15 13:32 | Outpatient (REF) | payer OTHER, SELFPAY ==
[2024-04-15 13:53] LABS: MANUAL DIFF FLAG NO
[2024-04-15 14:31] LABS: Basophils Percent Auto 0.4 % (0-2); Eosinophils Absolute Auto 0.3 X10*3/uL (0.0-0.4); Eosinophils Percent Auto 4.2 % (0-4); Hematocrit 45.1 % (42.0-52.0); Hemoglobin 14.7 g/dl (14.0-18.0); Imm Gran Abs Auto 0.02 X10*3/uL (0.00-0.03); Imm Gran Pct Auto 0.3 % (0.0-0.4); Lymphocytes Absolute Auto 1.6 X10*3/uL (1.2-4.9); Lymphocytes Percent Auto 23.1 % (20-40); Mean Corpuscular HGB Conc 32.6 g/dl (31.0-36.0); Mean Corpuscular Hemoglobin 28.2 pg (27.0-33.0); Mean Corpuscular Volume 86.4 fL (80.0-98.0); Mean Platelet Volume 9.7 fL (9.4-12.4); Platelet Count 284 X10*3/uL (160-400); Red Blood Count 5.22 X10*6/uL (4.60-5.80); Red Cell Distribution Width 15.3 % (11.0-16.0); White Blood Count 6.9 X10*3/uL (4.8-10.8)
[2024-04-15 15:09] LABS: Erythrocyte Sedimentation Rate 20 MM/HR (0-15)
[2024-04-15 15:30] LABS: Alanine Aminotransferase 32 U/L (0-40); Albumin Level 3.7 g/dL (3.5-5.0); Alkaline Phosphatase 58 U/L (39-117); Anion Gap 11 (12-20); Aspartate Amino Transferase 24 U/L (5-37); Bilirubin Total 0.3 mg/dL (0.0-1.0); Blood Urea Nitrogen 12 mg/dL (9-16); C Reactive Protein 1.24 mg/dL (< or = 0.50); Calcium 9.1 mg/dL (8.4-10.2); Carbon Dioxide 25 mmol/L (22-29); Chloride 108 mmol/L (96-108); Estimated Glomerular Filt Rate > 60; Glucose Random 94 mg/dL (60-115); Potassium 3.8 mmol/L (3.3-5.1); Sodium 140 mmol/L (135-145); Total Protein 7.6 g/dL (6.5-8.0)
== END 2024-04-15 13:33 | disposition home or self-care (01) ==
LOC: HO.LAB 13:32
PROVIDERS: PCP Internal Medicine; Visit Provider Student in an Organized Health Care Education/Training Program
DX: M05.9 Rheumatoid arthritis with rheumatoid factor, unspecified (principal); Z79.631 Long term (current) use of antimetabolite agent
CPT/HCPCS: 36415; 80053; 85025; 85652; 86140

== ENCOUNTER 2024-04-15 13:57 | Outpatient (AMB) | payer OTHER, SELFPAY ==
[2024-04-15 13:59] VITALS: BMI 55.1
--- NOTE | 2024-04-15 13:59 | MHC.OFFVIS ---
Vital Signs 04/15/24 13:59 Height 5 ft 7 in Weight 352 lb BMI 55.1 Intake Visit Reasons: Right knee pain Intake Note: Carl is a 53 yo male who presents today with complaints of progressively worsening right knee pain and giving way. The patient has done formal physical therapy in the past. He states that the therapy significantly improved his left knee pain but seemed to aggravate his right knee pain. His right knee pain and mechanical symptoms have gotten worse over the last year in spite of continued non operative treatments. He has failed the last 6 weeks of conservative treatment. He was seen by Rheumatology. Has been on methotrexate for the last 5 weeks. States that the medicine has given him mild relief. He states that his right knee will give out several times per day. He notices the instability when he is going up and down stairs or ladders as well as when he gets out of a chair. He has taken Tylenol and meloxicam as well which gave him minimal relief. He had a cortisone injection given into his right knee earlier this year by another provider which gave him minimal relief. . 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 Rheumatoid arthritis, seropositive Allergic rhinitis Osteoarthritis of both knees Right knee pain Asthma Obstructive sleep apnea Hypercholesteremia Bursitis of left shoulder Intermittent asthma Morbid obesity with BMI of 50.0-59.9, adult GERD (gastroesophageal reflux disease) Environmental allergies COVID-19 Surgical History No pertinent past surgical history Family History Other Family history non-contributory Social History Housing: House Alcohol intake: current Alcohol intake frequency: holidays/special occasions only Patient Tobacco Use Status: Never used Tobacco e-Cigarette/Vaping Use: Never Used service: No Current occupational status: employed 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, 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, 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 Current occupational exposures/hazards: No Cognitive needs: No Hearing needs: No Vision needs: Yes Physical Exam Vital Signs: BMI result Body Mass Index 55.1 Const Other: Well-nourished well-developed very friendly male awake alert and oriented x3 in no acute distress Extrem Other: Bilateral lower extremity examination shows good capillary refill, no skin lesions noted, normal sensation light touch Right knee examination shows a minimal effusion, minimal crepitus with range of motion, tenderness along his medial joint line, positive Kwame's test, no instability Results Reviewed Results Reviewed: Standing full weight-bearing x-rays of the patient's right knee show mild joint space narrowing, no acute bony abnormalities MRI of the patient's right knee shows mild diffuse degenerative changes as well as a tear of the medial meniscus, no acute bony abnormalities Assessment & Plan Assessment & Plan (1) Right knee pain: Code(s): M25.561 - Pain in right knee Category: Medical Qualifiers: Chronicity: chronic Qualified Code(s): M25.561 - Pain in right knee; G89.29 - Other chronic pain Plan Mr. Duke presents with right knee pain and mechanical symptoms due to a tear of his medial meniscus. I had a lengthy discussion with the patient regarding the treatment options. At this point he has failed continued non operative treatments. The risks and benefits of right knee arthroscopic surgery were discussed at length with the patient. The patient wishes to proceed with surgery. Surgery will most likely involve right knee arthroscopic partial medial meniscectomy. The patient does understand that he may not get 100% relief of his symptoms depending on the severity of his degenerative changes. The patient will be scheduled for next available date. He will follow-up as instructed. Feel free to call me at any time should questions regarding his orthopedic management arise. I spent 20 minutes in reviewing the patient's records and imaging studies, seeing the patient and documenting in the medical record. Coding Level of Care Code Est Pt Level 3 (46028) Complex EM visit Add On G2211 Diagnoses Chronic pain of right knee M25.561; G89.29 Chronicity: chronic
== END 2024-04-15 14:13 | disposition home or self-care (01) ==
PROVIDERS: PCP Internal Medicine; Visit Provider Orthopaedic Surgery
DX: S83.241A Other tear of medial meniscus, current injury, right knee, initial encounter (principal)
CPT/HCPCS: 99213

== ENCOUNTER 2024-05-16 05:34 | Day surgery (SDC) | payer OTHER, SELFPAY ==
[2024-05-14 11:16] VITALS: BMI 55.1
--- NOTE | 2024-05-14 12:23 | HO.ANESPROP2 ---
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 (Acute) Rheumatoid arthritis, seropositive (Acute) Allergic rhinitis (Acute) Osteoarthritis of both knees (Acute) Right knee pain (Acute) Morbid obesity with BMI of 50.0-59.9, adult (Acute) Asthma (Acute) Hypercholesteremia (Acute) GERD (gastroesophageal reflux disease) (Acute) Obstructive sleep apnea (Acute) Past Medical History Medical History Back pain COPD (chronic obstructive pulmonary disease) (09/17/23) CTS (carpal tunnel syndrome) Seasonal allergies Screening examination for infectious disease 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 Rheumatoid arthritis, seropositive Allergic rhinitis Osteoarthritis of both knees Right knee pain Asthma Obstructive sleep apnea Hypercholesteremia Bursitis of left shoulder Intermittent asthma Morbid obesity with BMI of 50.0-59.9, adult GERD (gastroesophageal reflux disease) Environmental allergies COVID-19 Family History Family History Other Family history non-contributory Surgical History Surgical History Hx of endoscopy [place] teeth extracted Social History Social History Household Members: Family Housing: House Are you a primary human services care specialist to a significant other at home: No Do you presently have visiting nurse or other home services: No Alcohol intake: current Alcohol intake frequency: holidays/special occasions only Patient Tobacco Use Status: Former Tobacco user Tobacco use type: Cigarette Smoked in Last 30 Days: No e-Cigarette/Vaping Use: Never Used Use of substances other than those prescribed or required for medical reasons: No Have you been hit, kicked, punched, or otherwise hurt by someone within the past year? 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 Current occupational exposures/hazards: No Cognitive needs: No Hearing needs: No Vision needs: Yes Meds Allergies Allergy/AdvReac Type Severity Reaction Status Date / Time Seasonal Allergies Allergy Unknown Verified 03/10/24 13:03 Home Medications ?Medication ?Instructions ?Recorded ?Confirmed ?Last Taken ?Type albuterol 90 mcg/actuation aerosol 90 mcg inhalation Q4-6H PRN 10/02/22 05/14/24 Unknown History inhaler Shortness Of Breath Or Wheezing loratadine 10 mg tablet 10 mg PO DAILY 10/02/23 05/14/24 Unknown History methotrexate sodium 2.5 mg tablet 15 mg PO .QWEEK Sunday05/14/24 05/14/24 Unknown History Exam Height,Weight and Vital Signs: Height 5 ft 7 in Weight 159.665 kg Pertinent Lab Results Pertinent Lab Results: Laboratory Tests 04/15/24 13:50 WBC 6.9 Hgb 14.7 Hct 45.1 Plt Count 284 Sodium 140 Potassium 3.8 Chloride 108 Carbon Dioxide 25 BUN 12 Creatinine 0.81 Narrative Narrative: EKG 09/2023 (outside facility) Pending Assessment and Plan Assessment Anesthesia Assessment: Chart Reviewed Documented by User: Jayleen Jacobson MD 05/16/24 08:18 PMFSH Past Medical History Medical History Back pain COPD (chronic obstructive pulmonary disease) (09/17/23) CTS (carpal tunnel syndrome) Seasonal allergies Screening examination for infectious disease 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 Rheumatoid arthritis, seropositive Allergic rhinitis Osteoarthritis of both knees Right knee pain Asthma Obstructive sleep apnea Hypercholesteremia Bursitis of left shoulder Intermittent asthma Morbid obesity with BMI of 50.0-59.9, adult GERD (gastroesophageal reflux disease) Environmental allergies COVID-19 Family History Family History Other Family history non-contributory Family history of problems with anesthesia: No Surgical History Surgical History Hx of endoscopy [place] teeth extracted History of Problems with Anesthesia: No Social History Social History Household Members: Family Housing: House Are you a primary human services care specialist to a significant other at home: No Do you presently have visiting nurse or other home services: No Alcohol intake: current Alcohol intake frequency: holidays/special occasions only Patient Tobacco Use Status: Former Tobacco user Tobacco use type: Cigarette Smoked in Last 30 Days: No e-Cigarette/Vaping Use: Never Used Use of substances other than those prescribed or required for medical reasons: No Have you been hit, kicked, punched, or otherwise hurt by someone within the past year? 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 Current occupational exposures/hazards: No Cognitive needs: No Hearing needs: No Vision needs: Yes Meds Allergies Allergy/AdvReac Type Severity Reaction Status Date / Time Seasonal Allergies Allergy Unknown Verified 03/10/24 13:03 Home Medications ?Medication ?Instructions ?Recorded ?Confirmed ?Last Taken ?Type albuterol 90 mcg/actuation aerosol 90 mcg inhalation Q4-6H PRN 10/02/22 05/14/24 Unknown History inhaler Shortness Of Breath Or Wheezing loratadine 10 mg tablet 10 mg PO DAILY 10/02/23 05/14/24 Unknown History methotrexate sodium 2.5 mg tablet 15 mg PO .QWEEK Sunday05/14/24 05/14/24 Unknown History Exam Airway Mallampati Class: III TM Dist: >3cm Neck ROM: Full Heart: rrr Lungs: cta Assessment and Plan Assessment Anesthesia Assessment: Anesthesia Plan Discussed Final Anesthetic Review Family History of Problems with Anesthesia: No History of Problems with Anesthesia: No NPO: Yes ASA Class: III Final Preanesthetic Review: No Changes in Pt Med Stat, Meds/Allgs Chart Reviewed, Consent Obtained/Reviewed and Anes Risks/Benef Reviewed Patient Risk: High Procedure Risk: Low Anesthetic Plan Anesthetic Plan: GA Disposition: Standard PACU
[2024-05-16] VITALS (9 sets, daily range): BP systolic 123–160; BP diastolic 41–90; PULSE 58–74; RESP 12–20; TEMP 36.1–36.3; O2SAT 95–99
[2024-05-16] MEDS: Lactated Ringers 1,000 ML 100 ML IVCONT (06:30)
[2024-05-16] MEDS: fentaNYL citrate/PF 100 MCG/2 ML VIAL 50 MCG IVPUSH ×2 (08:32→08:38)
--- NOTE | 2024-05-16 08:32 | PM.OP ---
Brief Operative Note Date of Service: 05/16/24 Pre-op diagnosis: Right knee medial meniscus tear, right knee degenerative joint disease Post-op diagnosis: same Procedure: Right knee diagnostic arthroscopy with right knee arthroscopic partial medial meniscectomy, right knee arthroscopic chondroplasty of the medial femoral condyle and trochlear groove Implants: none Surgeon: Ricky Damian MD Anesthesia: GLMA Was an Home Restoration Service Supervisor used for this Procedure?: No Estimated blood loss (mL): 10 Pathology: none sent Condition: stable Disposition: PACU
--- NOTE | 2024-05-16 08:33 | W.PM.OPN ---
Operative Note Operative Note Date of Service: 05/16/24 Narrative: After the patient was identified as Carl Duke and his right knee was initialed by myself they were brought to the operating room where general anesthesia was induced by the anesthesiologist in routine fashion. The patient was given 3 g of IV Ancef for infection prophylaxis. A formal time-out was completed. The patient's right lower extremity was prepped and draped in sterile fashion. Marcaine with epinephrine was injected into the planned incision sites as well as their right knee joint. A # 11 scalpel blade was used to make an anterolateral portal 1 cm proximal to the joint line and 1 cm lateral to the patellar tendon. Blunt trocar technique was used into the suprapatellar pouch with the knee in extension. Diagnostic arthroscopy showed multiple bands of thickened plica which would be excised at the end of the procedure. There were no loose bodies or abnormalities found in either the medial or lateral gutters. There were diffuse grades 1 and 2 degenerative changes of the undersurface of the patella as well as grades 2 and 3 degenerative changes of the trochlear groove. The patient's knee was flexed to 45 degrees and a valgus force was placed upon it. The medial compartment was entered. An anteromedial portal was made 1 cm proximal to the joint line and 1 cm medial to the patellar tendon. Probing of the medial meniscus showed a radial tear of the posterior horn. A partial medial meniscectomy was performed using the arthroscopic shaver. Following the partial meniscectomy the remainder of the meniscus tissue was stable. There were diffuse grades 2 and 3 degenerative changes of the medial femoral condyle as well as diffuse grade 1 degenerative changes of the medial tibial plateau. The articular surface of the medial femoral condyle was made smooth using the arthroscopic shaver. The articular surface of the medial tibial plateau was already smooth so no chondroplasty was indicated. The patient's knee was then placed into a neutral position. There was no injury to the anterior cruciate ligament. The patient's knee was then placed into the figure of 4 position and the lateral compartment was entered. There were minimal degenerative changes of the lateral femoral condyle and lateral tibial plateau. There was no evidence of lateral meniscus tearing. The patient's knee was once again brought into extension and the suprapatellar pouch was entered. The arthroscopic shaver and the ArthroCare Wand were used to excise the thickened bands of plica. The undersurface of the patella was already smooth so no chondroplasty was indicated. The trochlear groove articular surface was made smooth using the arthroscopic shaver. The knee joint was irrigated and then drained. All arthroscopic instruments were removed. The 2 portals were closed with 3-0 nylon interrupted suture. The knee joint was injected with Marcaine. Dry sterile dressing and Camilo bandages were placed over the patient's knee. The patient was awoken and extubated in the operating room. They were transferred to the recovery room in stable condition.
[2024-05-16] MEDS: cefTRIAXone sodium 1 GM in 0.9 % Sodium Chloride 50 ML IV (08:55)
== END 2024-05-16 09:59 | disposition home or self-care (01) ==
PROVIDERS: PCP Internal Medicine; Visit Provider Orthopaedic Surgery
PROC: (CPT 29870; principal; 2024-05-16 07:30)
DX: S83.241A Other tear of medial meniscus, current injury, right knee, initial encounter (principal); M23.321 Other meniscus derangements, posterior horn of medial meniscus, right knee; M17.11 Unilateral primary osteoarthritis, right knee; G89.29 Other chronic pain; M67.51 Plica syndrome, right knee; M05.9 Rheumatoid arthritis with rheumatoid factor, unspecified; E78.00 Pure hypercholesterolemia, unspecified; J45.909 Unspecified asthma, uncomplicated; E66.01 Morbid (severe) obesity due to excess calories; Z68.43 Body mass index [BMI] 50.0-59.9, adult; G47.33 Obstructive sleep apnea (adult) (pediatric); X58.XXXA Exposure to other specified factors, initial encounter; Y93.9 Activity, unspecified; Y92.9 Unspecified place or not applicable; Y99.9 Unspecified external cause status; Z79.899 Other long term (current) drug therapy
CPT/HCPCS: 29881; J0131; J0171; J0690; J0696; J1100; J2003; J2250; J2405; J2704; J2795; J3010

== ENCOUNTER → 2024-05-16 05:34 | Outpatient (BNV) | payer OTHER, SELFPAY | PROVIDERS: PCP Internal Medicine; Visit Provider Orthopaedic Surgery | DX: S83.241A Other tear of medial meniscus, current injury, right knee, initial encounter (principal) | CPT/HCPCS: 29881 ==

== ENCOUNTER 2024-05-29 13:35 | Outpatient (AMB) | payer OTHER, SELFPAY ==
--- NOTE | 2024-05-29 13:36 | MHC.OFFVIS ---
Intake Visit Reasons: PO RT knee 05/16/24 Intake Note: Carl is a 53 year old male who presents with complaints of mild discomfort in his right knee after undergoing right knee arthroscopic surgery on 05/16/2024. He denies any fevers or chills. He continues with his home stretching program. 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 Rheumatoid arthritis, seropositive Allergic rhinitis Osteoarthritis of both knees Right knee pain Asthma Obstructive sleep apnea Hypercholesteremia Bursitis of left shoulder Intermittent asthma Morbid obesity with BMI of 50.0-59.9, adult GERD (gastroesophageal reflux disease) Environmental allergies COVID-19 Surgical History Hx of endoscopy [place] teeth extracted Family History Other Family history non-contributory Social History Household Members: Family Housing: House Are you a primary career transition specialist to a significant other at home: No Do you presently have visiting nurse or other home services: No 75 years or older and lives alone: No Alcohol intake: current Alcohol intake frequency: holidays/special occasions only Patient Tobacco Use Status: Former Tobacco user Tobacco use type: Cigarette e-Cigarette/Vaping Use: Never Used service: No Current occupational status: employed 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, 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, 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 Current occupational exposures/hazards: No Cognitive needs: No Hearing needs: No Vision needs: Yes Physical Exam Extrem Other: Right knee examination shows that the surgical incisions are healing well, no erythema, minimal discomfort with range of motion, minimal crepitus with range of motion Assessment & Plan Assessment & Plan (1) Right knee pain: Code(s): M25.561 - Pain in right knee Category: Medical Qualifiers: Chronicity: chronic Qualified Code(s): M25.561 - Pain in right knee; G89.29 - Other chronic pain Plan Carl is doing well after undergoing right knee arthroscopic surgery on 05/16/2024. His sutures were removed and Steri-Strips placed over his incisions. He will gradually progress to activities as tolerated. He will contact me prior to his follow-up appointment in 2 months should any questions or concerns arise. Feel free to call me at any time should questions regarding his orthopedic management arise. Coding Level of Care Code Global (50205) Diagnoses Chronic pain of right knee M25.561; G89.29 Chronicity: chronic
== END 2024-05-29 14:00 | disposition home or self-care (01) ==
PROVIDERS: PCP Internal Medicine; Visit Provider Orthopaedic Surgery
DX: M25.561 Pain in right knee (principal); G89.29 Other chronic pain
CPT/HCPCS: 99024

== ENCOUNTER → 2024-05-29 13:35 | Outpatient (BNVA) | payer OTHER, SELFPAY | PROVIDERS: PCP Internal Medicine; Visit Provider Orthopaedic Surgery ==

== ENCOUNTER 2024-05-30 16:07 | Outpatient (AMB) | payer OTHER, SELFPAY ==
--- NOTE | 2024-05-30 16:12 | A.OFFPC_ITS ---
Vital Signs 05/30/24 16:14 05/30/24 16:59 Height 5 ft 7 in Weight 356 lb 2 oz BMI 55.8 BP 144/62 H 128/84 Blood Pressure Location Lt brachial Lt brachial Position Sitting Sitting Pulse 63 Pulse Source Pulse Oximeter Pulse Oximetry (%) 97 Oxygen Delivery Method Room Air Intake Visit Reasons: 6 Month F/U Intake Note: Patient is here to follow up on RA, Asthma, Low back pain, IRLANDA. Pt decline flu shot today. Acquisitions Assistant Required: No Top Distribution Executive: Not Required per policy Accompanied by: Self / Same As Patient Allergies Seasonal Allergies Allergy (Verified 05/30/24 18:09) Unknown Medication List - Last Reconciled 05/30/24 by Bon Odonnell MD albuterol 90 mcg/actuation 90 mcg inhalation Q4-6H PRN cholecalciferol (vitamin D3) 50 mcg PO DAILY 90 days folic acid 1 mg PO DAILY loratadine 10 mg PO DAILY methotrexate sodium 15 mg PO .QWEEK SUNDAY Tobacco use date assessed: 05/30/24 Dental Screening Dental Screen Date: 10/04/23 HPI 6 Month F/U HPI Details Patient comes in today for his follow up visit States that he currently feels okay He underwent total right knee arthroplasty a couple of weeks ago on 05/16/2024 and states that his knee has been feeling a lot better with much less pain since his surgery He just had the sutures removed by orthopedic yesterday but was not referred for physical therapy yet Thinks that this will be done when he comes back for his appointment in a couple of months He denies any headaches or dizziness Denies any chest pains, no SOB No nausea/vomiting, no abdominal pain No change in bowel habits noted PENDING SALE TO [facility] Medical History (Updated 05/30/24 @ 18:44 by Bon Odonnell MD) Vitamin D deficiency Back pain COPD (chronic obstructive pulmonary disease) (09/17/23) CTS (carpal tunnel syndrome) Seasonal allergies Screening examination for infectious disease [facility] methotrexate user Rheumatoid arthritis, seropositive Allergic rhinitis Osteoarthritis of both knees Right knee pain Asthma Obstructive sleep apnea Hypercholesteremia Bursitis of left shoulder Intermittent asthma Morbid obesity with BMI of 50.0-59.9, adult GERD (gastroesophageal reflux disease) Environmental allergies COVID-19 Surgical History History of right knee surgery Hx of endoscopy [place] teeth extracted Family History Other Family history non-contributory Social History Household Members: Family Housing: House Are you a primary regular senior care provider to a significant other at home: No Do you presently have visiting nurse or other home services: No 75 years or older and lives alone: No Alcohol intake: current Alcohol intake frequency: holidays/special occasions only Patient Tobacco Use Status: Former Tobacco user Tobacco use type: Cigarette e-Cigarette/Vaping Use: Never Used Second Hand Smoke Exposure: Yes service: No Current occupational status: employed 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 Depression Screening Interpretation: Negative Depression Screening Done: Yes Source: Developed by Drs. Michele Chen, Siam Grewal, Cain Juarez and colleagues, with an educational dalton from [employer]. Thrive Questionnaire Date Thrive assessed: 10/04/23 THRIVE Score: 0 FAUSTINA-7 AMB Questionnaire FAUSTINA-7 Date FAUSTINA - 7 assessed: 10/04/23 Source: Developed by Drs. Michele Chen, Sima Grewal, Cain Juarez and colleagues, with an educational dalton from [employer]. Review of Systems Const Denies chills, Denies fatigue, Denies fever(s) and Denies headache(s) ENT Denies dysphagia, Denies dizziness, Denies otalgia, Denies headache(s), Denies neck pain, Denies odynophagia and Denies sore throat Card Denies chest pain, Denies palpitations and Denies dyspnea Resp Denies chest congestion, Denies cough and Denies dyspnea GI Denies abdominal pain, Denies constipation, Denies dysphagia, Denies heartburn, Denies diarrhea, Denies nausea, Denies odynophagia and Denies vomiting Denies difficulty urinating, Denies dysuria, Denies nocturia and Denies urinary frequency Musc Denies back pain, Reports arthralgias (right knee feeling a lot better since TKA 2 weeks ago) and Denies neck pain Skin/Breast Denies rash Neuro Denies dizziness and Denies headache(s) Endo Denies fatigue and Denies palpitations Physical exam (Primary Care) Vital Signs: Last Vital Signs Pulse 63 05/30/24 16:14 BP 128/84 05/30/24 16:59 Pulse Ox 97 05/30/24 16:14 Oxygen Delivery Method Room Air 05/30/24 16:14 BMI result Body Mass Index 55.8 Tobacco/Smoking Status: Tobacco use Status Tobacco use date assessed 05/30/24 05/30/24 16:20 Patient Tobacco Use Status Former Tobacco user 05/30/24 16:20 Tobacco use type Cigarette 05/30/24 16:20 e-Cigarette/Vaping Use Never Used 05/30/24 16:20 Depression Screening Interpretation: Negative Thrive Assessment: Date of Thrive Assessment Date Thrive assessed 10/04/23 05/30/24 16:20 Const General: no acute distress and alert HENMT Ears: TM's normal bilaterally and EAC's normal Throat: Yes posterior oropharynx normal and Yes tonsils normal (no TP congestion) Neck Neck: Yes no lymphadenopathy and Yes supple Thyroid: Thyroid normal Resp Auscultation: clear to auscultation bilaterally, no rales and no wheezes Cardio Rate: regular rate Rhythm: regular rhythm Heart sounds: no murmurs GI Palpation (GI): Soft to palpation and nontender Auscultation: normal bowel sounds General: Yes no CVA tenderness Back/Spine/Pelvis Back: no CVA tenderness Cervical Spine: No Cervical spine tenderness Thoracic/Lumbar Spine: No lumbar spinal tenderness Skin Rashes: no rashes Extrem General: Yes no clubbing, cyanosis or edema Right lower extremity: knee Details: tenderness (mild - improved with TKA 2 weeks ago); no swelling Left lower extremity: knee Details: tenderness Results Reviewed Results Reviewed: Laboratory Tests 04/15/24 13:50 ESR 20 H C-Reactive Protein 1.24 H Total Protein 7.6 Albumin 3.7 Laboratory Tests 04/15/24 13:50 WBC 6.9 Hgb 14.7 Hct 45.1 Plt Count 284 ESR 20 H Sodium 140 Potassium 3.8 Creatinine 0.81 Estimated GFR > 60 Random Glucose 94 Calcium 9.1 AST 24 ALT 32 Coding Level of Care Code Est Pt Level 4 (85110) Diagnoses Mild intermittent asthma without complication J45.20 Asthma severity: mild Asthma persistence: intermittent Asthma complication type: uncomplicated Non-seasonal allergic rhinitis, unspecified trigger J30.89 Allergic rhinitis trigger: unspecified Allergic rhinitis seasonality: non-seasonal Rheumatoid arthritis, seropositive M05.9 Primary osteoarthritis of both knees M17.0 Osteoarthritis type: primary Obstructive sleep apnea G47.33 Gastroesophageal reflux disease without esophagitis K21.9 Esophagitis presence: without esophagitis Vitamin D deficiency E55.9 Morbid obesity with BMI of 50.0-59.9, adult E66.01; Z68.43 Assessment & Plan Assessment & Plan (1) Asthma: Code(s): J45.909 - Unspecified asthma, uncomplicated Category: Medical Qualifiers: Asthma severity: mild Asthma persistence: intermittent Asthma complication type: uncomplicated Qualified Code(s): J45.20 - Mild intermittent asthma, uncomplicated Plan: Stable Continue Albuterol HFA 1 to 2 inhalations Q 6 hours PRN (2) Allergic rhinitis: Code(s): J30.9 - Allergic rhinitis, unspecified Category: Medical Qualifiers: Allergic rhinitis trigger: unspecified Allergic rhinitis seasonality: non-seasonal Qualified Code(s): J30.89 - Other allergic rhinitis Plan: Continue Loratadine 10 mg QD PRN States that his allergies have improved significantly since he started receiving allergy injections regularly - goes to [facility] in [place], [place] (3) Rheumatoid arthritis, seropositive: Code(s): M05.9 - Rheumatoid arthritis with rheumatoid factor, unspecified Category: Medical Plan: Continue Methotrexate 15 mg once a week on Saturdays Continue Folic Acid 1 mg QD Follow up with rheumatology as scheduled (4) Osteoarthritis of both knees: Code(s): M17.0 - Bilateral primary osteoarthritis of knee Category: Medical Qualifiers: Osteoarthritis type: primary Qualified Code(s): M17.0 - Bilateral primary osteoarthritis of knee Plan: S/P TKA of the right knee a couple of weeks ago on 05/16/2024, with significant improvement of his knee pain Follow up with orthopedics as scheduled (5) Obstructive sleep apnea: Comment: no CPAP use, unable to tolerate mask Code(s): G47.33 - Obstructive sleep apnea (adult) (pediatric) Category: Medical Plan: Continue using his CPAP device when sleeping at night daily (6) GERD (gastroesophageal reflux disease): Code(s): K21.9 - Gastro-esophageal reflux disease without esophagitis Category: Medical Qualifiers: Esophagitis presence: without esophagitis Qualified Code(s): K21.9 - Gastro-esophageal reflux disease without esophagitis Plan: Dietary restrictions reinforced (7) Vitamin D deficiency: Code(s): E55.9 - Vitamin D deficiency, unspecified Category: Medical Plan: Continue Vitamin D3 2000 units QD (8) Morbid obesity with BMI of 50.0-59.9, adult: Code(s): E66.01 - Morbid (severe) obesity due to excess calories; Z68.43 - Body mass index [BMI] 50.0-59.9, adult Category: Medical Plan: Reinforced diet/exercise as tolerated/lose weight Plan To return in 4 months for his annual physical examination Orders: Orders Comprehensive [place]. Panel Fast 4 Months E78.00 - Pure hypercholesterolemia, unspecified, Z00.00 - Encounter for general adult medical examination without abnormal findings Lipid Panel 4 Months E78.00 - Pure hypercholesterolemia, unspecified, Z00.00 - Encounter for general adult medical examination without abnormal findings Vitamin D 25-OH Total 4 Months E55.9 - Vitamin D deficiency, unspecified, Z00.00 - Encounter for general adult medical examination without abnormal findings Complete Blood Count Auto Diff 4 Months D64.9 - Anemia, unspecified, Z00.00 - Encounter for general adult medical examination without abnormal findings TSH reflex Free T4 4 Months E78.00 - Pure hypercholesterolemia, unspecified, Z00.00 - Encounter for general adult medical examination without abnormal find ings UA CC w/rflx Micro + Cult 4 Months R30.0 - Dysuria, Z00.00 - Encounter for general adult medical examination without abnormal findings Prostate Specific Antigen Scr 4 Months Z00.00 - Encounter for general adult medical examination without abnormal findings Hemoglobin A1c 4 Months E11.9 - Type 2 diabetes mellitus without complications, Z00.00 - Encounter for general adult medical examination without abnormal findings
[2024-05-30 16:14] VITALS: BP 144/62; PULSE 63; O2SAT 97; BMI 55.8
[2024-05-30 16:59] VITALS: BP 128/84
== END 2024-05-30 17:07 | disposition home or self-care (01) ==
PROVIDERS: PCP Internal Medicine; Visit Provider Internal Medicine
DX: J45.20 Mild intermittent asthma, uncomplicated (principal); M05.9 Rheumatoid arthritis with rheumatoid factor, unspecified; E66.01 Morbid (severe) obesity due to excess calories; Z68.43 Body mass index [BMI] 50.0-59.9, adult; J30.89 Other allergic rhinitis; M17.0 Bilateral primary osteoarthritis of knee; G47.33 Obstructive sleep apnea (adult) (pediatric); K21.9 Gastro-esophageal reflux disease without esophagitis; E55.9 Vitamin D deficiency, unspecified

== ENCOUNTER → 2024-05-30 16:07 | Outpatient (BNVA) | payer OTHER, SELFPAY | PROVIDERS: PCP Internal Medicine; Visit Provider Internal Medicine ==

== ENCOUNTER 2024-06-10 15:35 | Outpatient (AMB) | payer OTHER, SELFPAY ==
[2024-06-10 15:44] VITALS: BP 122/78; PULSE 90; O2SAT 98; BMI 57.0
--- NOTE | 2024-06-10 15:44 | A.OFFVIS_ITS ---
Vital Signs 06/10/24 15:44 Height 5 ft 7 in Weight 363 lb 12.203 oz BMI 57.0 BP 122/78 Blood Pressure Location Lt brachial Position Sitting Pulse 90 Pulse Source Pulse Oximeter Pulse Oximetry (%) 98 Oxygen Delivery Method Room Air Intake Visit Reasons: RA?Right Knee MTX start./CM Intake Note: Patient presents today for follow up on RA? of Right knee, Methotrexate start, and lab review. Allergies Seasonal Allergies Allergy (Verified 05/30/24 18:09) Unknown Medication List - Last Reconciled 06/10/24 by Radha Espinal MD albuterol 90 mcg/actuation 90 mcg inhalation Q4-6H PRN cholecalciferol (vitamin D3) 50 mcg PO DAILY 90 days loratadine 10 mg PO DAILY HPI Comments Details: Patient is a 53-year-old male with seropositiv obstructive sleep apnea, GERD, asthma, hypercholesterolemia. Here today for follow-up Interval History: Last seen 01/16/2024 with Danna Snyder. At that time he was started on methotrexate and folic acid for possible rheumatoid arthritis. Since that time he followed up with orthopedic surgery. Had a MRI of the knee which showed superficial tear of the ACL as well as transverse meniscal ligament tear. He had surgery 05/2024 States that the starting the methotrexate he does not feel that her there has been any improvement to his pain. He reviewed the history of his knee pains stating that 1 morning he woke up and he was walking down the stairs and he felt his knee give way and he fell. He was then subsequently sent to physical therapy with improvement to the left knee but in the right knee persisted in pain. Evaluation led to positive JAZZMINE which led to referral to Rheumatology. No evidence or history of synovitis involving the hands, wrists, ankles or feet. And his only complaint right now is right knee pain. Rheumatologic History: Patient was initially seen 10/02/2023 after referral for bilateral knee pain. In the setting of positive CCP and positive JAZZMINE. He has never had hand synovitis however he failed physical therapy and intra-articular corticosteroid injections. Trial of immunomodulators with methotrexate started 01/16/2024 on a background of weakly positive CCP Of note he had bilateral knee x-rays which showed mild patellofemoral osteoarthritic disease. He subsequently had an MRI 04/2024 which showed possible superficial partial tear of the ACL versus localized synovitis between ACL and the transverse meniscal ligament favoring synovitis. Current Rheumatology Medication(s): Methotrexate 15 mg every week Folic acid 1 mg every day [facility] Medical History (Updated 06/10/24 @ 16:17 by Radha Espinal MD) Positive anti-CCP test Vitamin D deficiency Back pain COPD (chronic obstructive pulmonary disease) (09/17/23) CTS (carpal tunnel syndrome) Seasonal allergies Screening examination for infectious disease Allergic rhinitis Osteoarthritis of both knees Right knee pain Asthma Obstructive sleep apnea Hypercholesteremia Bursitis of left shoulder Intermittent asthma Morbid obesity with BMI of 50.0-59.9, adult GERD (gastroesophageal reflux disease) Environmental allergies COVID-19 Surgical History History of right knee surgery Hx of endoscopy [place] teeth extracted Family History Other Family history non-contributory Social History Household Members: Family Housing: House Are you a primary healthcare administration internship to a significant other at home: No Do you presently have visiting nurse or other home services: No 75 years or older and lives alone: No Alcohol intake: current Alcohol intake frequency: holidays/special occasions only Patient Tobacco Use Status: Former Tobacco user Tobacco use type: Cigarette e-Cigarette/Vaping Use: Never Used Second Hand Smoke Exposure: Yes service: No Current occupational status: employed 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, 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, 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 Current occupational exposures/hazards: No Cognitive needs: No Hearing needs: No Vision needs: Yes Review of Systems Const Details: Review of Systems Constitutional: Denies fever, chills, weight loss ENT: Denies vision changes, eye pain or eye redness, dental caries, dry mouth GI: Denies nausea, vomiting, diarrhea, abdominal pain, change in BM Pulm: Denies SOB, REED, hemoptysis, wheezing Cards: Denies chest pain, palpitations Skin: Denies Raynaud's, rash, nail changes, photosensitivity, [employer]: Denies headaches, weakness, paresthesias, recurrent falls MSK: as per HPI All other systems reviewed and are unremarkable except noted above Physical Exam Vital Signs: Last Vital Signs Pulse 90 06/10/24 15:44 BP 122/78 06/10/24 15:44 Pulse Ox 98 06/10/24 15:44 Oxygen Delivery Method Room Air 06/10/24 15:44 BMI result Body Mass Index 57.0 Results Reviewed Results Reviewed: Knee MRI 04/2024 IMPRESSION: 1. Possible tear of the free edge of the posterior horn of the medial meniscus. 2. Possible superficial partial tear of the distal anterior fibers of the ACL versus localized synovitis between the ACL and the transverse meniscal ligament. Favor synovitis. 3. Mild patellofemoral arthrosis. 4. Mild/focal arthrosis of the medial compartment. 5. Mild joint effusion. Laboratory Tests 08/30/23 10/02/23 04/15/24 12:50 14:18 13:50 ESR 20 H C-Reactive Protein 1.24 H Rheumatoid Factor < 13.0 Cycl Citrul Peptide IgG 27 H JAZZMINE Screen POSITIVE A JAZZMINE Titer 1:320 H Assessment & Plan Assessment & Plan (1) Osteoarthritis of both knees: Code(s): M17.0 - Bilateral primary osteoarthritis of knee Category: Medical Qualifiers: Osteoarthritis type: primary Qualified Code(s): M17.0 - Bilateral primary osteoarthritis of knee Plan: #Primary OA Bilateral Knees Patient with bilateral knee osteoarthritis. Now status post arthroscopy for the right knee with meniscal repair. 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 Given this high specificity for rheumatoid arthritis it was reasonable to think that maybe his monoarticular joint pain could be rheumatoid arthritis. However he does not meet criteria for RA and it is likely that this knee pain is osteoarthritic in origin. However given this weakly positive CCP I told him I would follow him yearly as research has shown that the antibodies for rheumatoid arthritis appear up to 5 years prior to development of symptoms (although this was specifically with rheumatoid factor). I let him know what symptoms to be aware of and if they occur he should seek a sooner appointment Plan I spent 25 minutes reviewing the record and labs, seeing the patient, discussing the treatment plan and documenting in the medical record ? Medications: Discontinued folic acid Discontinued Reason: Change Referral Type 1 mg PO DAILY 90 tabs 1RF Z79.631 - prison (current) use of antimetabolite agent Coding Level of Care Code Est Pt Level 3 (12225) Diagnoses Primary osteoarthritis of both knees M17.0 Osteoarthritis type: primary Positive anti-CCP test R76.8
== END 2024-06-10 16:11 | disposition home or self-care (01) ==
LOC: HO.RHE 15:36
PROVIDERS: PCP Internal Medicine; Visit Provider Student in an Organized Health Care Education/Training Program
DX: M17.0 Bilateral primary osteoarthritis of knee (principal); R76.8 Other specified abnormal immunological findings in serum
CPT/HCPCS: 99213

== ENCOUNTER → 2024-06-10 15:35 | Outpatient (BNVA) | payer OTHER, SELFPAY | PROVIDERS: PCP Internal Medicine; Visit Provider Student in an Organized Health Care Education/Training Program ==

== ENCOUNTER 2024-06-20 11:15 | Outpatient (AMB) | payer OTHER, SELFPAY ==
--- NOTE | 2024-06-20 11:20 | MHC.OFFVIS ---
Vital Signs 06/20/24 11:21 Height 5 ft 7 in Weight 362 lb 7.039 oz BMI 56.8 BP 127/68 Blood Pressure Location Lt brachial Position Sitting Pulse 81 Intake Visit Reasons: pre colonoscopy Intake Note: New patient in office today for colonoscopy screening. CC: This would be patient's first colonoscopy. He denies having any GI symptoms or concerns today. Patient report having some gallstones but states that they don't bother him as long as he watches intake of fats and chocolate. Allergies Seasonal Allergies Allergy (Verified 09/30/24 16:38) Unknown HPI HPI pre colonoscopy: Details: 53-year-old male here for preprocedural meeting to discuss a screening colonoscopy. He is referred by Bon Odonnell. PMX Asthma/COPD IRLANDA Morbid obesity High cholesterol Allergic rhinitis GERD Osteoarthritis of the knees * SURGICAL HISTORY Right knee surgery Esophagogastroduodenoscopy [place] teeth extraction * ALLERGIES: NKDA * [employer] LABS: Laboratory Tests 04/15/24 13:50 WBC 6.9 Hgb 14.7 Hct 45.1 Plt Count 284 Estimated GFR > 60 Total Bilirubin 0.3 AST 24 ALT 32 Alkaline Phosphatase 58 C-Reactive Protein 1.24 H TODAY'S VISIT This is his first colonoscopy No bowel problems and his GERD is well controlled. No anes or sed problems NO ID probldms Asthma well controlled and IRLANDA no cardaic problesm There is no known FHX crc or polyps. [facility] Medical History (Updated 11/03/24 @ 14:49 by Charmaine Nichols NP) Asthma exacerbation Acute respiratory disease Right knee pain Left knee pain Screening examination for infectious disease Colon cancer screening Upper respiratory infection Positive anti-CCP test Vitamin D deficiency Back pain COPD (chronic obstructive pulmonary disease) (09/17/23) CTS (carpal tunnel syndrome) Seasonal allergies Allergic rhinitis Osteoarthritis of both knees Asthma Obstructive sleep apnea Hypercholesteremia Bursitis of left shoulder Intermittent asthma Morbid obesity with BMI of 50.0-59.9, adult GERD (gastroesophageal reflux disease) Environmental allergies COVID-19 Surgical History History of right knee surgery Hx of endoscopy [place] teeth extracted Family History Other Family history non-contributory Social History Household Members: Family Housing: House Are you a primary family day care provider to a significant other at home: No Do you presently have visiting nurse or other home services: No 75 years or older and lives alone: No Alcohol intake: current Alcohol intake frequency: holidays/special occasions only Patient Tobacco Use Status: Former Tobacco user Tobacco use type: Cigarette e-Cigarette/Vaping Use: Never Used Second Hand Smoke Exposure: Yes service: No Current occupational status: employed 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, 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, 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 Current occupational exposures/hazards: No Cognitive needs: No Hearing needs: No Vision needs: Yes Review of Systems Const Denies fatigue, Denies fever(s), Denies night sweats, Denies poor appetite and Denies weight loss ENT Reports Normal hearing present, Denies dental pain, Denies dysphagia, Denies hearing loss, Denies mouth pain, Denies odynophagia, Denies throat swelling, Denies tongue swelling and Reports other (Dentition adequate) Card Reports no additional complaints Resp Reports cough GI Details: Denies abdominal pain, Denies melena, Denies bloating, Denies hematochezia, Denies constipation, Denies GI cramping, Denies dysphagia, Denies excessive flatus, Denies early satiety, Reports heartburn, Denies diarrhea, Denies nausea, Denies odynophagia, Denies vomiting and Denies hematemesis Musc Reports back pain and Reports arthralgias Skin/Breast Denies pruritus, Denies lesions, Denies rash and Denies jaundice Neuro Reports Normal hearing present and Denies Abnormal speech present Endo Denies fatigue Aller/Immun Denies throat swelling and Denies tongue swelling Physical Exam Vital Signs: Last Vital Signs Pulse 81 06/20/24 11:21 BP 127/68 06/20/24 11:21 BMI result Body Mass Index 56.8 Const General: cooperative, no acute distress, well developed and well groomed Nutritional Appearance: well nourished and obese morbidly obese Orientation/consciousness: oriented to person, oriented to place and oriented to time Limitations: No language barrier HEENT Head: Yes normocephalic and Yes atraumatic Eyes General: appearance normal, both eyes and all related structures Pupils: Equal, round and reactive pupils present Neck Neck: Yes normal visual inspection and Yes no lymphadenopathy Thyroid: Thyroid normal Resp Effort & Inspection: normal respiratory effort and able to speak in complete sentences Auscultation: clear to auscultation bilaterally Cardio Rate: regular rate Rhythm: regular rhythm Heart sounds: Normal, physiologic split S2 sound present Peripheral pulses: radial pulses present and posterior tibial pulses present GI Inspection: No distended, Yes Abdominal panniculus present and Yes obesity Palpation (GI): Soft to palpation, nontender, no guarding, not rigid and No hepatosplenomegaly present Percussion: Yes normal to percussion Auscultation: normal bowel sounds Rectal Exam - Male: Yes deferred Skin General skin exam: no rashes or lesions noted, turgor normal, skin not dry, no jaundice, No spider nevi and no striae Rashes: no rashes Nails: normal Neuro General: oriented to person, oriented to place and oriented to time Cranial nerves: Yes Equal, round and reactive pupils present and Yes Normal hearing present Speech: No Abnormal speech present Extrem General: Yes normal to inspection, No clubbing, No cyanosis, Yes edema (+1 bilateral) and Yes venous stasis dermatitis Psych Appearance: grossly normal and well kempt Mental Status: mental status grossly normal Speech and movement: Normal speech and movement present Affect: normal affect Attitude: cooperative Thought process: Normal thought process present and not confabulating Thought content: Normal thought content present Insight: Good insight present (Psych) Judgement: Good judgement present (Psych) Assessment & Plan Assessment & Plan (1) GERD (gastroesophageal reflux disease): Code(s): K21.9 - Gastro-esophageal reflux disease without esophagitis Category: Medical Qualifiers: Esophagitis presence: without esophagitis Qualified Code(s): K21.9 - Gastro-esophageal reflux disease without esophagitis (2) Morbid obesity with BMI of 50.0-59.9, adult: Code(s): E66.01 - Morbid (severe) obesity due to excess calories; Z68.43 - Body mass index [BMI] 50.0-59.9, adult Category: Medical (3) Obstructive sleep apnea: Comment: no CPAP use, unable to tolerate mask Code(s): G47.33 - Obstructive sleep apnea (adult) (pediatric) Category: Medical (4) Pre-op examination: Code(s): Z01.818 - Encounter for other preprocedural examination Category: Medical Plan This is his first colonoscopy No bowel problems and his GERD is well controlled. No anes or sed problems NO ID probldms Asthma well controlled and IRLANDA no cardaic problesm There is no known FHX crc or polyps. Orders: Orders Colonoscopy - GI Use Only 06/20/24 Z01.818 - Encounter for other preprocedural examination, E66.01 - Morbid (severe) obesity due to excess calories, Z68.43 - Body mass index [BMI] 50.0-59.9, adult, K21.9 - Gastro-esophageal reflux disease without esophagitis, G47.33 - Obstructive sleep apnea (adult) (pediatric) Medications: New peg 3350-electrolytes 236-22.74-6.74 -5.86 gram (Golytely) until fecal effluent is clear; do not exceed a total volume of 2,000 mL 240 mL PO Q10M 4,000 mL 0RF 1 day Z12.11 - Encounter for screening for malignant neoplasm of colon bisacodyl (Dulcolax (bisacodyl)) 10 mg (2 x 5 mg) PO BEDTIME 4 tabs 0RF 2 days Coding Level of Care Code New Pt Level 3 (00052) Diagnoses Gastroesophageal reflux disease without esophagitis K21.9 Esophagitis presence: without esophagitis Morbid obesity with BMI of 50.0-59.9, adult E66.01; Z68.43 Obstructive sleep apnea G47.33 Pre-op examination Z01.818
[2024-06-20 11:21] VITALS: BP 127/68; PULSE 81; BMI 56.8
== END 2024-06-20 11:47 | disposition home or self-care (01) ==
PROVIDERS: PCP Internal Medicine; Visit Provider Nurse Practitioner
DX: K21.9 Gastro-esophageal reflux disease without esophagitis (principal); E66.01 Morbid (severe) obesity due to excess calories; Z68.43 Body mass index [BMI] 50.0-59.9, adult; G47.33 Obstructive sleep apnea (adult) (pediatric); Z01.818 Encounter for other preprocedural examination
CPT/HCPCS: 99499

== ENCOUNTER 2024-08-05 10:44 | Outpatient (AMB) | payer OTHER, SELFPAY ==
--- NOTE | 2024-08-05 10:44 | MHC.OFFVIS ---
Vital Signs 08/05/24 10:45 Height 5 ft 7 in Weight 362 lb 7 oz BMI 56.8 Intake Visit Reasons: PO RT knee 05/16/24 Intake Note: Carl is a 53 year old male who presents with complaints of mild discomfort in his right knee after undergoing right knee arthroscopic surgery on 05/16/2024. He denies any fevers or chills. He continues with his home exercise program. Allergies No Known Drug Allergies Allergy (Unknown, Verified 08/05/24 10:46) none Seasonal Allergies Allergy (Verified 08/05/24 10:46) Unknown Medication List - Last Reconciled 08/05/24 by Ricky Damian MD albuterol-budesonide 90-80 mcg/actuation (Airsupra) 2 inhalations inhalation Q4-6H PRN bisacodyl (Dulcolax (bisacodyl)) 10 mg (2 x 5 mg) PO BEDTIME 2 days cholecalciferol (vitamin D3) 50 mcg PO DAILY 90 days loratadine 10 mg PO DAILY peg 3350-electrolytes 236-22.74-6.74 -5.86 gram (Golytely) 240 mL PO Q10M 1 day PFSH Medical History (Updated 08/05/24 @ 12:53 by Ricky Damian MD) Right knee pain Left knee pain Screening examination for infectious disease Annual physical exam Colon cancer screening Upper respiratory infection Asthma exacerbation Positive anti-CCP test Vitamin D deficiency Back pain COPD (chronic obstructive pulmonary disease) (09/17/23) CTS (carpal tunnel syndrome) Seasonal allergies Allergic rhinitis Osteoarthritis of both knees Asthma Obstructive sleep apnea Hypercholesteremia Bursitis of left shoulder Intermittent asthma Morbid obesity with BMI of 50.0-59.9, adult GERD (gastroesophageal reflux disease) Environmental allergies COVID-19 Surgical History History of right knee surgery Hx of endoscopy [place] teeth extracted Family History Other Family history non-contributory Social History Household Members: Family Housing: House Are you a primary transitional care nurse to a significant other at home: No Do you presently have visiting nurse or other home services: No 75 years or older and lives alone: No Alcohol intake: current Alcohol intake frequency: holidays/special occasions only Patient Tobacco Use Status: Former Tobacco user Tobacco use type: Cigarette e-Cigarette/Vaping Use: Never Used Second Hand Smoke Exposure: Yes service: No Current occupational status: employed 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, 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 Duke continues to do well after undergoing right knee arthroscopic surgery on 05/16/2024. He will continue with his home exercise program. He will follow up with me on an as-needed basis should his symptoms worsen in any way. Feel free to call me at any time should questions regarding his orthopedic management arise. Coding Level of Care Code Global (61459) Diagnoses Chronic pain of right knee M25.561; G89.29 Chronicity: chronic
[2024-08-05 10:45] VITALS: BMI 56.8
--- OUTSIDE RECORDS SUMMARY | 2024-08-05 11:00 | XMS_ITS | Patient Health Record ---
Author Organization [facility] Address [address] [place] [address] Care Team Providers Care Family Physician Name Role Phone SOTERO RODRIGUEZ Unavailable [phone] ALLERGIES No Known Allergies REASON FOR REFERRAL No Information MEDICATIONS Medication SIG (Take, Route, Frequency, Duration) Notes Start Date End Date Status Tylenol Active Mounjaro 5 MG/0.5ML as directed Subcutan eous weekly for 30 days Active predniSONE 20 MG 1 tablet Orally Once a day Active Albuterol Sulfate HFA 108 (90 Base) MCG/ACT 1 puff as needed Inhalation every 4 hrs Active Nasal [place] 0.05 % 2 sprays in each nos tril as needed Nasally Twice a day Activ e Trulicity 1.5 MG/0.5ML as directed Subcu taneous weekly for 30 days Active Doxycycline Active Ozempic (0.25 or 0.5 MG/DOSE) 2 MG/1.5ML Inject 1mg Subcutaneous weekly for 90 days Active Mounjaro 7.5 MG/0.5ML inject 7.5mg weekl y subcutaneously Please fill prescription through the [employer] co-pay card program and not through insurance Prior authorization NOTrequired Diagnosis e11.9 Subcutaneous weekly for 30 days 07/18/2022 Active Mounjaro 10 MG/0.5ML 10mg Subcutaneous w eekly for 30 days Active IMMUNIZATIONS Vaccine Route Administration Date Status Comme nts Flu vaccine no Preserv 3 and > Unknown 07/14/2021 Admin istered Pfizer Covid-19 Vaccine Unknown 09/18/2020 Administered Pfizer Covid-19 Vaccine Unknown 10/09/2020 Administered Pfizer Covid-19 Vaccine Unknown 07/14/2021 Administered Tdap Unknown 02/04/2012 Administered SOCIAL HISTORY Tobacco Use: Social History Observation Description Date Details (start date - stop date) Former Smoker NA - NA Sex Assigned At : Social History Observation Description Sex Assigned At Unknown Tobacco Use/Smoking Question Answer Notes Are you a former smoker How long has it been since y ou last smoked? > 10 years Additional Findings: Tobacco User Modera te cigarette smoker (10-19 cigs/day) Section Notes: Quit smoking 1984 about 1 pk a day started at the age of 16year old Quit smoking 1984 about 1 pk a day started at the age of 16year old Quit smoking 1984 about 1 pk a day started at the age of 16year old Quit smoking 1984 about 1 pk a day started at the age of 16year old Quit smoking 1984 about 1 pk a day started at the age of 16year old Quit smoking 1984 about 1 pk a day started at the age of 16year old Quit smoking 1984 about 1 pk a day started at the age of 16year old Quit smoking 1984 about 1 pk a day started at the age of 16year old Quit smoking 1984 about 1 pk a day started at the age of 16year old Quit smoking 1984 about 1 pk a day started at the age of 16year old Quit smoking 1984 about 1 pk a day started at the age of 16year old Quit smoking 1984 about 1 pk a day started at the age of 16year old Quit smoking 1984 about 1 pk a day started at the age of 16year old Quit smoking 1984 about 1 pk a day started at the age of 16year old Quit smoking 1984 about 1 pk a day started at the age of 16year old Quit smoking 1984 about 1 pk a day started at the age of 16year old PROBLEMS Problem Type ICD Code Onset Dates Problem Status W/U Status Risk SNOMED Code Notes Problem Morbid (severe) obesity due to excess calories (E66.01) Active confirmed 947095888 Problem Prediabetes (R73.03) Active confirmed 053935065 Problem Obesity (BMI 30.0-34.9) (E66.9) Active confirmed 070463519532559 Problem IRLANDA (obstructive sleep apnea) (G47.33) Active confirmed 33437615 Problem Body mass index [BMI] 50.0-59.9, adult (Z68.43) Active confirmed 764939028 Problem Body mass index [BMI] 60.0-69.9, adult (Z68.44) Active confirmed 318904139 Problem Hyperinsulinemia (E16.1) Active confirmed 56603164 Problem BMI 45.0-49.9, adult (Z68.42) Active confirmed 569628451 PLAN OF TREATMENT Pending Test Test Name Order Date EKG 02/22/2021 HEMOGLOBIN A1C 09/28/2021 Insulin Level 09/28/2021 Insurance Providers Payer Name Payer Address Payer Phone Subscriber Number Group Number Insured Name Patient Relationship to Insured Coverage Start Date Coverage End Date [facility] [address] [place] [address] [id number] Carl Duke Self - patient is the insured 2 MEDICATIONS ADMINISTERED Medication Instructions Date of Administration Dosage Notes MICC B12 INJECTION 09/28/2021 1 mL MICC B12 INJECTION 10/26/2021 MICC B12 INJECTION 12/01/2021 lot # [id number] MICC B12 INJECTION 01/12/2022 1 MICC B12 INJECTION 02/15/2022 1 MICC B12 INJECTION 03/27/2022 1 MICC B12 INJECTION 04/27/2022 MICC B12 INJECTION 06/08/2022 MICC B12 INJECTION 07/18/2022 MICC B12 INJECTION 09/07/2022 MICC B12 INJECTION 10/05/2022 MEDICAL (GENERAL) HISTORY Medical History History ICD Code asthma seasonal allergies gallstones
== END 2024-08-05 10:59 | disposition home or self-care (01) ==
PROVIDERS: PCP Internal Medicine; Visit Provider Orthopaedic Surgery
DX: M25.561 Pain in right knee (principal); G89.29 Other chronic pain
CPT/HCPCS: 99024

== ENCOUNTER 2024-08-26 14:47 | Outpatient (AMB) | payer OTHER, SELFPAY ==
--- NOTE | 2024-08-26 14:47 | MHC.PC.OV ---
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 Accompanied by: Self / Same As Patient Allergies No Known Drug Allergies Allergy (Unknown, Verified 08/26/24 15:18) none Seasonal Allergies Allergy (Verified 08/26/24 15:18) Unknown Medication List - Last Reconciled 08/26/24 by Bon Odonnell MD albuterol-budesonide 90-80 mcg/actuation (Airsupra) 2 inhalations inhalation Q4-6H PRN bisacodyl (Dulcolax (bisacodyl)) 10 mg (2 x 5 mg) PO BEDTIME 2 days cholecalciferol (vitamin D3) 50 mcg PO DAILY 90 days loratadine 10 mg PO DAILY peg 3350-electrolytes 236-22.74-6.74 -5.86 gram (Golytely) 240 mL PO Q10M 1 day Tobacco use date assessed: 08/26/24 Dental Screening Dental Screen Date: 08/26/24 HPI Cold sx Cough Congestion Head/Body Aches HPI Details Patient's follow-up visit / consultation today is done over the phone - this is a Telehealth visit Patient's current medications have been reviewed and verified with patient and / or caregiver / proxy and have been updated accordingly in the medication list Patient states that he started experiencing cold symptoms about 7 days ago States that he has been taking OTC cough/cold meds lately with some relief She eventually stopped taking her meds about 3 days ago as she was then feeling a lot better Is now still taking Mucinex PRN to help loosen up her phlegm States that she has been feeling dehydrated lately and has been advised to increase her oral fluid intake significantly Patient states that he tested himself for COVID the other day and he came out negative He denies any fever, headaches or dizziness; denies any sore throat He denies any chest pains, no increased shortness of breath No nausea/vomiting, no abdominal pain No change in bowel habits noted 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 and will have them try to listen to his lungs - states that he will call if there are any concerning findings on auscultation and we will order CXRs then [facility] Medical History Right knee pain Left knee pain Screening examination for infectious disease Annual physical exam Colon cancer screening Upper respiratory infection Asthma exacerbation Positive anti-CCP test Vitamin D deficiency Back pain COPD (chronic obstructive pulmonary disease) (09/17/23) CTS (carpal tunnel syndrome) Seasonal allergies Allergic rhinitis Osteoarthritis of both knees Asthma Obstructive sleep apnea Hypercholesteremia Bursitis of left shoulder Intermittent asthma Morbid obesity with BMI of 50.0-59.9, adult GERD (gastroesophageal reflux disease) Environmental allergies COVID-19 Surgical History History of right knee surgery Hx of endoscopy [place] teeth extracted Family History Other Family history non-contributory Social History Household Members: Family Housing: House Are you a primary careers counsellor to a significant other at home: No Do you presently have visiting nurse or other home services: No 75 years or older and lives alone: No Alcohol intake: current Alcohol intake frequency: holidays/special occasions only Patient Tobacco Use Status: Former Tobacco user Tobacco use type: Cigarette e-Cigarette/Vaping Use: Never Used Second Hand Smoke Exposure: Yes service: No Current occupational status: employed 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 1. Little interest or pleasure in doing things: not at all 2. Feeling down, depressed, or hopeless: not at all 3. Trouble falling or staying asleep, or sleeping too much: not at all 4. Feeling tired or having little energy: not at all 5. Poor appetite or overeating: not at all 6. Feeling bad about yourself - or that you are a failure or have let yourself or your family down: not at all 7. Trouble concentrating on things, such as reading the newspaper or watching television: not at all 8. Moving or speaking so slowly that other people could have noticed. Or the opposite - being so fidgety or restless that you have been moving around a lot more than usual: not at all 9. Thoughts that you would be better off or of hurting yourself in some way: not at all Total score: 0 Depression Screening Interpretation: Negative Depression Screening Done: Yes 83859 - PHQ-9 Billing: Yes Source: Developed by Drs. Michele Chen, Sima Grewal, Cain Juarez and colleagues, with an educational dalton from [employer] Thrive Questionnaire Date Thrive assessed: 08/26/24 I am a: Patient What is your living situation today?: I have a steady place to live Within the past 12 months, did the food you bought not last and you didn't have the money to get more?: Never true Within the past 12 months, did you worry whether your food would run out before you got money to buy more?: Never true Do you have trouble paying for medicines?: No Do you have trouble getting transportation to medical appointments?: No Do you have trouble paying your heating and electricity bill?: No Do you have trouble taking care of your child, family member or friend?: No Do you have trouble with day-to-day activities such as bathing, preparing meals, shopping, managing finances, etc.?: No Are you currently unemployed and looking for a job?: No Are you interested in more education?: No Please select the resources that you would like help with: None Currently or been in a relationship where the following occur: No concerns reported THRIVE Score: 0 AUDIT C Alcohol Use Questionnaire (AUDIT-C) 1. How often do you have a drink containing alcohol?: Monthly or less 2. How many drinks containing alcohol do you have on a typical day when you are drinking?: 1 or 2 3. How often do you have six or more drinks on one occasion?: Less than monthly Total Score: 2 Score Reviewed/Action Taken: Yes FAUSTINA-7 AMB Questionnaire FAUSTINA-7 Date FAUSTINA - 7 assessed: 08/26/24 Feeling nervous, anxious, or on edge: 0 = Not at all Not being able to stop or control worryin = Not at all Worrying too much about different things: 0 = Not at all Trouble relaxin = Not at all Being so restless that it is hard to sit still: 0 = Not at all Becoming easily annoyed or irritable: 0 = Not at all Feeling afraid as if something awful might happen: 0 = Not at all Total FAUSTINA-7 score (0-4 normal; 5-9 mild; 10-14 moderate; 15-21 severe): 0 Source: Developed by Drs. Michele Chen, Sima Grewal, Cain Juarez and colleagues, with an educational dalton from [employer] Review of Systems Const Denies chills, Reports fatigue, Denies fever(s) and Denies headache(s) ENT Denies dysphagia, Denies dizziness, Denies otalgia, Denies headache(s), Reports nasal congestion, Denies neck pain, Denies odynophagia and Denies sore throat Card Denies chest pain, Denies palpitations and Denies dyspnea Resp Reports chest congestion, Reports cough, Denies hemoptysis, Denies dyspnea and Denies wheezing GI Denies abdominal pain, Denies constipation, Denies dysphagia, Denies heartburn, Denies diarrhea, Denies nausea, Denies odynophagia and Denies vomiting Denies dysuria, Denies nocturia and Denies urinary frequency Musc Denies back pain and Denies neck pain Neuro Denies dizziness and Denies headache(s) Endo Reports fatigue and Denies palpitations Aller/Immun Denies wheezing Physical exam (Primary Care) Vital Signs: Physical examination is not performed as visit / consultation today is done over the phone - Telehealth visit All physical findings indicated here, if present, are as per patient's and / or caregivers / proxy's report Tobacco/Smoking Status: Tobacco use Status Tobacco use date assessed 08/26/24 08/26/24 14:49 Patient Tobacco Use Status Former Tobacco user 08/26/24 14:49 Tobacco use type Cigarette 08/26/24 14:49 e-Cigarette/Vaping Use Never Used 08/26/24 14:49 PHQ-9: PHQ-9 Score PHQ-9: Total score 0 08/26/24 15:21 Depression Screening Interpretation: Negative Thrive Assessment: Date of Thrive Assessment Date Thrive assessed 08/26/24 08/26/24 14:49 Currently or been in a relationship where the following occur: No concerns reported Telehealth Telehealth Telehealth Platform: Telephone Location of provider rendering services: practice address Location of patient: address on file Patient Identification confirmed using: Name, : Yes Telehealth method: voice only Patient verbally consented to treatment: Yes Patient verbally consented to billing insurance company: Yes Patient informed of any privacy concerns related to visit: Yes Minutes spent on Phone/Video with Pt.: 17 Coding Level of Care Code Tele Est Pt Level 3 (14836) Diagnoses Respiratory tract infection J98.8 Additional Codes PHQ-9 - 25474 - PHQ-9 Billing: Yes ([id number]) Assessment & Plan Assessment & Plan (1) Respiratory tract infection: Code(s): J98.8 - Other specified respiratory disorders Category: Medical Plan: Will start patient on Amoxicillin 875 mg BID x 10 days Can continue OTC cough/cold meds PRN for symptomatic relief He tested himself for COVID yesterday, which came out negative Plan To return as scheduled next month for his annual physical examination Medications: New amoxicillin 875 mg PO BID 10 days 20 tabs 0RF
--- OUTSIDE RECORDS SUMMARY | 2024-08-26 16:50 | XMS_ITS | Patient Health Record ---
Author Organization [facility] Address [address] [place] [address] Care Team Providers Care Pediatric Physician Assistant Name Role Phone SOTERO RODRIGUEZ Unavailable [phone] ALLERGIES No Known Allergies REASON FOR REFERRAL No Information MEDICATIONS Medication SIG (Take, Route, Frequency, Duration) Notes Start Date End Date Status Tylenol Active Mounjaro 5 MG/0.5ML as directed Subcutan eous weekly for 30 days Active predniSONE 20 MG 1 tablet Orally Once a day Active Albuterol Sulfate HFA 108 (90 Base) MCG/ACT 1 puff as needed Inhalation every 4 hrs Active Nasal [place] 0.05 % 2 sprays in each nos tril as needed Nasally Twice a day Activ e Trulicity 1.5 MG/0.5ML as directed Subcu taneous weekly for 30 days Active Doxycycline Active Ozempic (0.25 or 0.5 MG/DOSE) 2 MG/1.5ML Inject 1mg Subcutaneous weekly for 90 days Active Mounjaro 7.5 MG/0.5ML inject 7.5mg weekl y subcutaneously Please fill prescription through the [employer] co-pay card program and not through insurance [...] due to excess calories (E66.01) Active confirmed 814793056 Problem Prediabetes (R73.03) Active confirmed 789878625 Problem Obesity (BMI 30.0-34.9) (E66.9) Active confirmed [id number] Problem IRLANDA (obstructive sleep apnea) (G47.33) Active confirmed 18619031 Problem Body mass index [BMI] 50.0-59.9, adult (Z68.43) Active confirmed 494964130 Problem Body mass index [BMI] 60.0-69.9, adult (Z68.44) Active confirmed 587336188 Problem Hyperinsulinemia (E16.1) Active confirmed 27307081 Problem BMI 45.0-49.9, adult (Z68.42) Active confirmed 029631150 PLAN OF TREATMENT Pending Test Test Name Order Date EKG 02/22/2021 HEMOGLOBIN A1C 09/28/2021 Insulin Level 09/28/2021 Insurance Providers Payer Name Payer Address Payer Phone Subscriber Number Group Number Insured Name Patient Relationship to Insured Coverage Start Date Coverage End Date [facility] [address] [place] [address] [id number] Carl Duke Self - patient is the insured 2 MEDICATIONS ADMINISTERED Medication Instructions Date of Administration Dosage Notes MICC B12 INJECTION 09/28/2021 1 mL MICC B12 INJECTION 10/26/2021 MICC B12 INJECTION 12/01/2021 lot # [id number] MICC B12 INJECTION 01/12/2022 1 MICC B12 INJECTION 02/15/2022 1 MICC B12 INJECTION 03/27/2022 1 MICC B12 INJECTION 04/27/2022 MICC B12 INJECTION 06/08/2022 MICC B12 INJECTION 07/18/2022 MICC B12 INJECTION 09/07/2022 MICC B12 INJECTION 10/05/2022 MEDICAL (GENERAL) HISTORY Medical History History ICD Code asthma seasonal allergies gallstones
== END 2024-08-26 16:10 | disposition home or self-care (01) ==
LOC: HO.HMCH 14:47
PROVIDERS: PCP Internal Medicine; Visit Provider Internal Medicine
DX: J98.8 Other specified respiratory disorders (principal)

== ENCOUNTER → 2024-08-26 14:47 | Outpatient (BNVA) | payer OTHER, SELFPAY | PROVIDERS: PCP Internal Medicine; Visit Provider Internal Medicine | DX: J98.8 Other specified respiratory disorders (principal) | CPT/HCPCS: 96127 ==

== ENCOUNTER 2024-09-30 15:50 | Outpatient (AMB) | payer OTHER, SELFPAY ==
[2024-09-30 16:03] VITALS: BP 126/84; PULSE 80; O2SAT 98; BMI 56.6
--- NOTE | 2024-09-30 16:03 | A.OFFPC_ITS ---
Vital Signs 09/30/24 16:03 Height 5 ft 7 in Weight 361 lb 2 oz BMI 56.6 BP 126/84 Blood Pressure Location Lt brachial Position Sitting Pulse 80 Pulse Source Pulse Oximeter Pulse Oximetry (%) 98 Oxygen Delivery Method Room Air Intake Visit Reasons: Annual Exam Campus Administrative Assistant Required: No Accompanied by: Self / Same As Patient Allergies No Known Drug Allergies Allergy (Unknown, Verified 09/30/24 16:38) none Seasonal Allergies Allergy (Verified 09/30/24 16:38) Unknown Medication List - Last Reconciled 09/30/24 by Bon Odonnell MD albuterol-budesonide 90-80 mcg/actuation (Airsupra) 2 inhalations inhalation Q4- 6H PRN bisacodyl (Dulcolax (bisacodyl)) 10 mg (2 x 5 mg) PO BEDTIME 2 days cholecalciferol (vitamin D3) 50 mcg PO DAILY 90 days loratadine 10 mg PO DAILY peg 3350-electrolytes 236-22.74-6.74 -5.86 gram (Golytely) 240 mL PO Q10M 1 day Tobacco use date assessed: 09/30/24 Dental Screening Dental Screen Date: 09/30/24 Did you have a dental visit in the last 12 months?: No Did you have a dental problem in the last 6 months where you did not have access to dental care?: No Was dental information given to patient?: Patient has dentist HPI Annual Exam HPI Details Patient comes in today for his annual physical examination States that he currently feels okay He is still experiencing some pain and discomfort in his right knee (had TKA of the right knee back in May [address] Damian) but states that the surgery he had helped a lot He denies any headaches or dizziness Denies any chest pains, no shortness of breath No nausea/vomiting, no abdominal pain No change in bowel habits noted He denies any acute urinary symptoms He was not able to get his follow-up labs done prior to his appointment today He is scheduled for his 1st screening colonoscopy in a couple weeks on 10/19/24 [facility] Medical History (Updated 10/05/24 @ 10:44 by Bon Odonnell MD) Right knee pain Left knee pain Screening examination for infectious disease Colon cancer screening Upper respiratory infection Asthma exacerbation Positive anti-CCP test Vitamin D deficiency Back pain COPD (chronic obstructive pulmonary disease) (09/17/23) CTS (carpal tunnel syndrome) Seasonal allergies Allergic rhinitis Osteoarthritis of both knees Asthma Obstructive sleep apnea Hypercholesteremia Bursitis of left shoulder Intermittent asthma Morbid obesity with BMI of 50.0-59.9, adult GERD (gastroesophageal reflux disease) Environmental allergies COVID-19 Surgical History History of right knee surgery Hx of endoscopy [place] teeth extracted Family History Other Family history non-contributory Social History Household Members: Family Housing: House Are you a primary career technical counselor to a significant other at home: No Do you presently have visiting nurse or other home services: No 75 years or older and lives alone: No Alcohol intake: current Alcohol intake frequency: holidays/special occasions only Patient Tobacco Use Status: Former Tobacco user Tobacco use type: Cigarette e-Cigarette/Vaping Use: Never Used Second Hand Smoke Exposure: Yes service: No Current occupational status: employed 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 1. Little interest or pleasure in doing things: not at all 2. Feeling down, depressed, or hopeless: not at all 3. Trouble falling or staying asleep, or sleeping too much: not at all 4. Feeling tired or having little energy: not at all 5. Poor appetite or overeating: not at all 6. Feeling bad about yourself - or that you are a failure or have let yourself or your family down: not at all 7. Trouble concentrating on things, such as reading the newspaper or watching television: not at all 8. Moving or speaking so slowly that other people could have noticed. Or the opposite - being so fidgety or restless that you have been moving around a lot more than usual: not at all 9. Thoughts that you would be better off or of hurting yourself in some way: not at all Total score: 0 Depression Screening Interpretation: Negative Depression Screening Done: Yes 43523 - PHQ-9 Billing: Yes Source: Developed by Drs. Michele Chen, Sima Grewal, Cain Juarez and colleagues, with an educational dalton from [employer]. Thrive Questionnaire Date Thrive assessed: 09/30/24 I am a: Patient What is your living situation today?: I have a steady place to live Within the past 12 months, did the food you bought not last and you didn't have the money to get more?: Never true Within the past 12 months, did you worry whether your food would run out before you got money to buy more?: Never true Do you have trouble paying for medicines?: No Do you have trouble getting transportation to medical appointments?: No Do you have trouble paying your heating and electricity bill?: No Do you have trouble taking care of your child, family member or friend?: No Do you have trouble with day-to-day activities such as bathing, preparing meals, shopping, managing finances, etc.?: No Are you currently unemployed and looking for a job?: No Are you interested in more education?: No Please select the resources that you would like help with: None Currently or been in a relationship where the following occur: No concerns reported THRIVE Score: 0 AUDIT C Alcohol Use Questionnaire (AUDIT-C) 1. How often do you have a drink containing alcohol?: Monthly or less 2. How many drinks containing alcohol do you have on a typical day when you are drinking?: 1 or 2 3. How often do you have six or more drinks on one occasion?: Never Total Score: 1 Score Reviewed/Action Taken: Yes FAUSTINA-7 AMB Questionnaire FAUSTINA-7 Date FAUSTINA - 7 assessed: 09/30/24 Feeling nervous, anxious, or on edge: 0 = Not at all Not being able to stop or control worryin = Not at all Worrying too much about different things: 0 = Not at all Trouble relaxin = Not at all Being so restless that it is hard to sit still: 0 = Not at all Becoming easily annoyed or irritable: 0 = Not at all Feeling afraid as if something awful might happen: 0 = Not at all Total FAUSTINA-7 score (0-4 normal; 5-9 mild; 10-14 moderate; 15-21 severe): 0 Source: Developed by Drs. Michele Chen, Sima Grewal, Cain Juarez and colleagues, with an educational dalton from [employer]. Review of Systems Const Denies chills, Denies fatigue, Denies fever(s), Denies headache(s), Denies malaise and Denies weakness Eyes Denies blurry vision, Denies change in vision, Denies irritation and Denies itchy eyes ENT Denies dysphagia, Denies dizziness, Denies otalgia, Denies headache(s), Denies nasal congestion, Denies neck pain, Denies odynophagia and Denies sore throat Card Denies chest pain, Denies rapid heart rate, Denies irregular heart rhythm, Denies palpitations and Denies dyspnea Resp Denies chest congestion, Denies cough, Denies dyspnea and Denies wheezing GI Denies abdominal pain, Denies bloating, Denies constipation, Denies dysphagia, Denies heartburn, Denies diarrhea, Denies nausea, Denies odynophagia and Denies vomiting Denies hematuria, Denies difficulty urinating, Denies dysuria, Denies urinary frequency and Denies urinary urgency Musc Denies back pain, Reports arthralgias (in the right knee although this has improved with knee surgery ), Denies joint swelling, Denies muscle weakness and Denies neck pain Skin/Breast Denies change in pigmentation, Denies lesions, Denies rash and Denies unusual bruising Neuro Denies dizziness, Denies headache(s), Denies paresthesias and Denies weakness Endo Denies fatigue and Denies palpitations Aller/Immun Denies itchy eyes and Denies wheezing Physical exam (Primary Care) Vital Signs: Last Vital Signs Pulse 80 09/30/24 16:03 BP 126/84 09/30/24 16:03 Pulse Ox 98 09/30/24 16:03 Oxygen Delivery Method Room Air 09/30/24 16:03 BMI result Body Mass Index 56.6 Tobacco/Smoking Status: Tobacco use Status Tobacco use date assessed 09/30/24 09/30/24 16:04 Patient Tobacco Use Status Former Tobacco user 09/30/24 16:04 Tobacco use type Cigarette 09/30/24 16:04 e-Cigarette/Vaping Use Never Used 09/30/24 16:04 PHQ-9: PHQ-9 Score PHQ-9: Total score 0 10/01/24 12:40 Depression Screening Interpretation: Negative Thrive Assessment: Date of Thrive Assessment Date Thrive assessed 09/30/24 09/30/24 16:04 Currently or been in a relationship where the following occur: No concerns repor natividad Const General: no acute distress, alert and awake Orientation/consciousness: patient oriented x3 HENMT Head: Yes normocephalic and Yes atraumatic Ears: external ears normal, TM's normal bilaterally and EAC's normal General nose exam: No nasal discharge present Face and sinus: Yes normal facial exam and Yes sinuses nontender Teeth and gingiva: dentition normal Throat: Yes posterior oropharynx normal and Yes tonsils normal (no TP congestion) Eyes Eyelids: Yes eyelids normal Conjunctivae: conjunctivae normal Pupils: Equal, round and reactive pupils present EOM: EOMs intact bilaterally Neck Neck: Yes supple and No lymphadenopathy Thyroid: Thyroid normal Resp Auscultation: clear to auscultation bilaterally, no rales and no wheezes Cardio Rate: regular rate Rhythm: regular rhythm Heart sounds: no murmurs GI Palpation (GI): Soft to palpation, nontender and No hepatosplenomegaly present Auscultation: normal bowel sounds General: Yes no CVA tenderness Back/Spine/Pelvis Back: no CVA tenderness Thoracic/Lumbar Spine: thoracic and lumbar spine normal to inspection Skin Lesions: no lesions Rashes: no rashes Neuro General: patient oriented x3, moves all extremities, no focal motor deficits and CN's II-XI intact bilaterally Cranial nerves: Yes Equal, round and reactive pupils present Cognition (Neuro): normal cognition Gait exam (Neuro): Normal gait present Extrem General: Yes no clubbing, cyanosis or edema Right lower extremity: knee Details: tenderness (mild); no swelling Coding Level of Care Code Est Pt Prev Care 40-64y(59376) Diagnoses Annual physical exam Z00.00 Mild intermittent asthma without complication J45.20 Asthma severity: mild Asthma persistence: intermittent Asthma complication type: uncomplicated Non-seasonal allergic rhinitis, unspecified trigger J30.89 Allergic rhinitis trigger: unspecified Allergic rhinitis seasonality: non-seasonal Primary osteoarthritis of both knees M17.0 Osteoarthritis type: primary Rheumatoid arthritis, seropositive M05.9 Obstructive sleep apnea G47.33 Gastroesophageal reflux disease without esophagitis K21.9 Esophagitis presence: without esophagitis Vitamin D deficiency E55.9 Morbid obesity with BMI of 50.0-59.9, adult E66.01; Z68.43 Additional Codes PHQ-9 - 92195 - PHQ-9 Billing: Yes ([id number]) Assessment & Plan Assessment & Plan (1) Annual physical exam: Code(s): Z00.00 - Encounter for general adult medical examination without abnormal findings Category: Medical Plan: Check labs - patient is reminded that his labs have been previously ordered and that he can just go and get these done at any time He is scheduled for his 1st screening colonoscopy at [facility] [place] in a couple weeks on 10/19/24 (2) Asthma: Code(s): J45.909 - Unspecified asthma, uncomplicated Category: Medical Qualifiers: Asthma severity: mild Asthma persistence: intermittent Asthma complication type: uncomplicated Qualified Code(s): J45.20 - Mild intermittent asthma, uncomplicated Plan: Controlled Continue Airsupra 2 inhalations Q 4 to 6 hours PRN (3) Allergic rhinitis: Code(s): J30.9 - Allergic rhinitis, unspecified Category: Medical Qualifiers: Allergic rhinitis trigger: unspecified Allergic rhinitis seasonality: non-seasonal Qualified Code(s): J30.89 - Other allergic rhinitis Plan: Continue Loratadine 10 mg QD PRN Patient states that his allergies have improved significantly since he started receiving allergy injections regularly - goes to [facility] in [place], [place] (4) Osteoarthritis of both knees: Code(s): M17.0 - Bilateral primary osteoarthritis of knee Category: Medical Qualifiers: Osteoarthritis type: primary Qualified Code(s): M17.0 - Bilateral primary osteoarthritis of knee Plan: He is S/P TKA of the right knee on 05/16/2024, with significant improvement of his knee pain Follow up with orthopedics as scheduled (5) Rheumatoid arthritis, seropositive: Code(s): M05.9 - Rheumatoid arthritis with rheumatoid factor, unspecified Category: Medical Plan: He was started on a trial of Methotrexate 15 mg once a week on Saturdays last year but he did not experience any significant improvement of his symptoms and Rx was eventually discontinued by rheumatology He was advised by rheumatology at his last follow up visit in May 2024 that he does not meet criteria for RA and it is likely that his knee pain was osteoarthritic in origin. However given his weakly positive CCP, they will follow him up yearly as studies have shown that antibodies for rheumatoid arthritis appear up to 5 years prior to development of symptoms (although this was specifically with rheumatoid factor) (6) Obstructive sleep apnea: Comment: no CPAP use, unable to tolerate mask Code(s): G47.33 - Obstructive sleep apnea (adult) (pediatric) Category: Medical Plan: Continue using his CPAP device when sleeping at night daily (7) GERD (gastroesophageal reflux disease): Code(s): K21.9 - Gastro-esophageal reflux disease without esophagitis Category: Medical Qualifiers: Esophagitis presence: without esophagitis Qualified Code(s): K21.9 - Gastro-esophageal reflux disease without esophagitis Plan: Dietary restrictions reinforced (8) Vitamin D deficiency: Code(s): E55.9 - Vitamin D deficiency, unspecified Category: Medical Plan: Continue Vitamin D3 2000 units QD (9) Morbid obesity with BMI of 50.0-59.9, adult: Code(s): E66.01 - Morbid (severe) obesity due to excess calories; Z68.43 - Body mass index [BMI] 50.0-59.9, adult Category: Medical Plan: Reinforced diet/exercise as tolerated/lose weight Plan Follow up in 6 months
== END 2024-09-30 16:46 | disposition home or self-care (01) ==
PROVIDERS: PCP Internal Medicine; Visit Provider Internal Medicine
DX: Z00.00 Encounter for general adult medical examination without abnormal findings (principal); M05.9 Rheumatoid arthritis with rheumatoid factor, unspecified; E66.01 Morbid (severe) obesity due to excess calories; Z68.43 Body mass index [BMI] 50.0-59.9, adult; J45.20 Mild intermittent asthma, uncomplicated; J30.89 Other allergic rhinitis; M17.0 Bilateral primary osteoarthritis of knee; G47.33 Obstructive sleep apnea (adult) (pediatric); K21.9 Gastro-esophageal reflux disease without esophagitis; E55.9 Vitamin D deficiency, unspecified

== ENCOUNTER → 2024-09-30 15:50 | Outpatient (BNVA) | payer OTHER, SELFPAY | PROVIDERS: PCP Internal Medicine; Visit Provider Internal Medicine | DX: Z00.00 Encounter for general adult medical examination without abnormal findings (principal); J45.20 Mild intermittent asthma, uncomplicated; J30.89 Other allergic rhinitis; M17.0 Bilateral primary osteoarthritis of knee; M05.9 Rheumatoid arthritis with rheumatoid factor, unspecified; G47.33 Obstructive sleep apnea (adult) (pediatric); K21.9 Gastro-esophageal reflux disease without esophagitis; E55.9 Vitamin D deficiency, unspecified; E66.01 Morbid (severe) obesity due to excess calories; Z68.43 Body mass index [BMI] 50.0-59.9, adult; Z79.899 Other long term (current) drug therapy | CPT/HCPCS: 96127 ==

== ENCOUNTER 2024-10-21 06:56 | Day surgery (SDC) | payer OTHER, SELFPAY ==
--- OUTSIDE RECORDS SUMMARY | 2024-09-24 12:11 | XMS_ITS | Patient Health Record ---
Author Organization [facility] Address [address] [place] [address] Care Team Providers Care Car Oiler Name Role Phone SOTERO RODRIGUEZ Unavailable [phone] ALLERGIES No Known Allergies REASON FOR REFERRAL No Information MEDICATIONS Medication SIG (Take, Route, Frequency, Duration) Notes Start Date End Date Status Tylenol Active Mounjaro 5 MG/0.5ML as directed Subcutan eous weekly for 30 days Active predniSONE 20 MG 1 tablet Orally Once a day Active Albuterol Sulfate HFA 108 (90 Base) MCG/ACT 1 puff as needed Inhalation every 4 hrs Active Nasal [place] 0.05 % 2 sprays in each nos tril as needed Nasally Twice a day Activ e Trulicity 1.5 MG/0.5ML as directed Subcu taneous weekly for 30 days Active Doxycycline Active Ozempic (0.25 or 0.5 MG/DOSE) 2 MG/1.5ML Inject 1mg Subcutaneous weekly for 90 days Active Mounjaro 7.5 MG/0.5ML inject 7.5mg weekl y subcutaneously Please fill prescription through the [employer] co-pay card program and not through insurance [...] due to excess calories (E66.01) Active confirmed 010722406 Problem Prediabetes (R73.03) Active confirmed 996866150 Problem Obesity (BMI 30.0-34.9) (E66.9) Active confirmed [id number] Problem IRLANDA (obstructive sleep apnea) (G47.33) Active confirmed 31771771 Problem Body mass index [BMI] 50.0-59.9, adult (Z68.43) Active confirmed 821982270 Problem Body mass index [BMI] 60.0-69.9, adult (Z68.44) Active confirmed 790451171 Problem Hyperinsulinemia (E16.1) Active confirmed 89716030 Problem BMI 45.0-49.9, adult (Z68.42) Active confirmed 785719571 PLAN OF TREATMENT Pending Test Test Name Order Date EKG 02/22/2021 HEMOGLOBIN A1C 09/28/2021 Insulin Level 09/28/2021 Insurance Providers Payer Name Payer Address Payer Phone Subscriber Number Group Number Insured Name Patient Relationship to Insured Coverage Start Date Coverage End Date [facility] [address] [place] [address] [id number] Carl Duke Self - patient is the insured 2 MEDICATIONS ADMINISTERED Medication Instructions Date of Administration Dosage Notes MICC B12 INJECTION 09/28/2021 1 mL MICC B12 INJECTION 10/26/2021 MICC B12 INJECTION 12/01/2021 lot # [id number] MICC B12 INJECTION 01/12/2022 1 MICC B12 INJECTION 02/15/2022 1 MICC B12 INJECTION 03/27/2022 1 MICC B12 INJECTION 04/27/2022 MICC B12 INJECTION 06/08/2022 MICC B12 INJECTION 07/18/2022 MICC B12 INJECTION 09/07/2022 MICC B12 INJECTION 10/05/2022 MEDICAL (GENERAL) HISTORY Medical History History ICD Code asthma seasonal allergies gallstones
[2024-10-17 14:09] VITALS: BMI 56.7
[2024-10-21 07:13] VITALS: BMI 55.9
[2024-10-21] MEDS: Lactated Ringers 1,000 ML 80 ML IVCONT (07:22)
--- NOTE | 2024-10-21 07:49 | P.HPSUR_ITS ---
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 Rheumatoid arthritis, seropositive Allergic rhinitis Osteoarthritis of both knees Right knee pain Asthma Obstruct) History of Previous Operations: Relevant previous surgery/procedure and date(s) ( Hx of endoscopy [place] teeth extracted) Allergies: Allergies Allergy/AdvReac Type Severity Reaction Status Date / Time No Known Drug Allergies Allergy Unknown none Verified 10/21/24 07:14 Seasonal Allergies Allergy Unknown Verified 09/30/24 16:38 Review of Systems Sugical H&P ROS: Negative: Constitution, Cardiovascular, Respiratory, Neurological, Psychiatric, Hem-Onc, Allergic/Immunologic, Gastrointestinal, Genitourinary, Musculoskeletal, Integumentary, Endocrine and Eyes/Ears/Nose/Throat Exam Surgical H&P Exam: Normal: HEENT, Normal: Heart, Normal: Lungs, Normal: Extremities, Normal: Abdomen, Normal: Skin and Normal: Neurological Exam Comment: obese Plan Diagnosis/Plan: Unchanged I have reviewed the history and physical and performed a pertinent physical examination on my patient. No changes have occurred unless specified. Time Spent With Patient Time: Total time managing care of this patient today ____ minutes.
[2024-10-21 08:02] VITALS: BP 142/74; PULSE 84; RESP 18; TEMP 36.6; O2SAT 99
--- NOTE | 2024-10-21 08:18 | P.CONAN_ITS ---
HPI - Anesthesia Eval Consult details Narrative: for colonoscopy [facility] Active Problems Active Problems: All Active Problems Annual physical exam (Acute) Respiratory tract infection (Acute) Right knee pain (Acute) Pre-op examination (Acute) Positive anti-CCP test (Acute) Vitamin D deficiency (Acute) Positive JAZZMINE (antinuclear antibody) (Acute) Low back pain (Acute) Arthralgia (Acute) Allergic rhinitis (Acute) Osteoarthritis of both knees (Acute) Morbid obesity with BMI of 50.0-59.9, adult (Acute) Asthma (Acute) Hypercholesteremia (Acute) GERD (gastroesophageal reflux disease) (Acute) Obstructive sleep apnea (Acute) Past Medical History Medical History Right knee pain Left knee pain Screening examination for infectious disease Colon cancer screening Upper respiratory infection Asthma exacerbation Positive anti-CCP test Vitamin D deficiency Back pain COPD (chronic obstructive pulmonary disease) (09/17/23) CTS (carpal tunnel syndrome) Seasonal allergies Allergic rhinitis Osteoarthritis of both knees Asthma Obstructive sleep apnea Hypercholesteremia Bursitis of left shoulder Intermittent asthma Morbid obesity with BMI of 50.0-59.9, adult GERD (gastroesophageal reflux disease) Environmental allergies COVID-19 Family History Family History Other Family history non-contributory Family history of problems with anesthesia: No Surgical History Surgical History History of right knee surgery Hx of endoscopy [place] teeth extracted History of Problems with Anesthesia: No Social History Social History Household Members: Family Housing: House Are you a primary women's health care nurse practitioner to a significant other at home: No Do you presently have visiting nurse or other home services: No Alcohol intake: current Alcohol intake frequency: holidays/special occasions only Patient Tobacco Use Status: Former Tobacco user Tobacco use type: Cigarette e-Cigarette/Vaping Use: Never Used Second Hand Smoke Exposure: Yes Have you been hit, kicked, punched, or otherwise hurt by someone within the past year? 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 Current occupational exposures/hazards: No Cognitive needs: No Hearing needs: No Vision needs: Yes Meds Allergies Allergy/AdvReac Type Severity Reaction Status Date / Time Seasonal Allergies Allergy Unknown Verified 09/30/24 16:38 Active Medications: Current Medications Lactated Ringer's (Lr) 1,000 mls @ 80 mls/hr IVCONT .[id number] CHRISTA Last Admin: 10/21/24 07:22 Dose: 80 mls/hr Home Medications ?Medication ?Instructions ?Recorded ?Confirmed ?Last Taken ?Type loratadine 10 mg tablet 10 mg PO DAILY 10/02/23 10/21/24 Unknown History albuterol 90 mcg-budesonide 80 2 inh inhalation Q4-6H PRN 06/20/24 10/21/24 Unknown History mcg/actuation HFA aerosol inhaler Allergic Symptoms (Airsupra) Exam Height,Weight and Vital Signs: Height 5 ft 7 in Weight 162 kg Last Vital Signs Temp 97.9 F 10/21/24 08:02 Pulse 84 10/21/24 08:02 Resp 18 10/21/24 08:02 BP 142/74 H 10/21/24 08:02 Pulse Ox 99 10/21/24 08:02 O2 Del Method Room Air 10/21/24 08:02 Airway Mallampati Class: II TM Dist: <=3cm Neck ROM: Full Loose/Missing/Broken Teeth: No Heart: ok Lungs: ok. see above. no problem lying flat. Assessment and Plan Assessment Anesthesia Assessment: Anesthesia Plan Discussed and Chart Reviewed Final Anesthetic Review Family History of Problems with Anesthesia: No History of Problems with Anesthesia: No NPO: Yes ASA Class: III Final Preanesthetic Review: No Changes in Pt Med Stat, Meds/Allgs Chart Reviewed, Consent Obtained/Reviewed and Anes Risks/Benef Reviewed Patient Risk: High Procedure Risk: Low Anesthetic Plan Anesthetic Plan: MAC:, Agree w/ Assess. and Plan and TIVA Disposition: Standard PACU
--- NOTE | 2024-10-21 08:46 | HO.OPN-COLON ---
Colonoscopy Operative Note Operative Note Date of Service: 10/21/24 Narrative: Operative Information Procedure Description: Colonoscopy Indication: screening Anesthesia: MAC COLONOSCOPY Instrument: Olympus variable stiffness pediatric scope 190L Colonoscopy Monitoring: Vital signs and clinical assessment, continuous EKG monitoring, Pulse oximetry, Carbon Dioxide monitoring and blood pressure monitoring were done throughout the procedure. Colon withdrawal time was 9 minutes. Procedure: The patient was placed in the left lateral decubitis position and pre-procedure medications were administered. After a digital rectal examination of the ano-rectum, the video colonoscope was inserted into the rectum and advanced through the colon to the cecum/TI. The colonoscope was slowly withdrawn in a retrograde panoramic fashion and the colon mucosa was carefully examined including a retroflexed view of the rectum. Findings and interventions are described below. Procedure Difficulty: easy Findings: Terminal Ileum-normal Cecum:normal right sided retroflexion - normal Ascending Colon: normal Transverse Colon -normal Descending Colon: 8-9 mm sessile polyp removed with cold snare Sigmoid Colon: normal Rectum: Retroflexion with small internal hemorrhoids seen, grade I Anorectum - normal Intervention: cold snare Colon preparation: [place] Bowel Preparation Scale Right colon; 2 Transverse colon: 2 Left colon; 2 (0 = Unprepared colon segment with mucosa not seen due to solid stool that cannot be cleared. 1 = Portion of mucosa of the colon segment seen, but other areas of the colon segment not well seen due to staining, residual stool and/or opaque liquid. 2 = Minor amount of residual staining, small fragments of stool and/or opaque liquid, but mucosa of colon segment seen well. 3 = Entire mucosa of colon segment seen well with no residual staining, small fragments of stool or opaque liquid) Impression and Post Procedure Diagnosis: colon polyp internal hemorrhoids Plan: High fiber diet leaflet Avoid straining at stool, epsom salts and sitz bath, anusol supps or cream Repeat Colonoscopy in 5-7 years due to adenomatous appearing polyp or earlier if clinically indicated Above findings were reviewed with the patient and relevant handouts were provided if indicated.
[2024-10-21 08:54] VITALS: BP 133/69; PULSE 75; RESP 20; TEMP 36.6; O2SAT 96
[2024-10-21 09:09] VITALS: BP 118/78; PULSE 65; RESP 16; TEMP 36.6; O2SAT 96
== END 2024-10-21 09:47 | disposition home or self-care (01) ==
PROVIDERS: PCP Internal Medicine; Visit Provider Internal Medicine Gastroenterology
PROC: 0DJD8ZZ Inspection of Lower Intestinal Tract, Via Natural or Artificial Opening Endoscopic (ICD-10-PCS; CPT 45378; principal; 2024-10-21 08:10)
DX: Z12.11 Encounter for screening for malignant neoplasm of colon (principal); D12.4 Benign neoplasm of descending colon; K64.0 First degree hemorrhoids; E78.00 Pure hypercholesterolemia, unspecified; K21.9 Gastro-esophageal reflux disease without esophagitis; J45.909 Unspecified asthma, uncomplicated; G47.33 Obstructive sleep apnea (adult) (pediatric); E66.9 Obesity, unspecified; Z68.43 Body mass index [BMI] 50.0-59.9, adult; Z87.891 Personal history of nicotine dependence
CPT/HCPCS: 45385; 88305; J2003; J2704; J3010

== ENCOUNTER → 2024-10-21 06:56 | Outpatient (BNV) | payer OTHER, SELFPAY | PROVIDERS: PCP Internal Medicine; Visit Provider Internal Medicine Gastroenterology | DX: Z12.11 Encounter for screening for malignant neoplasm of colon (principal); D12.4 Benign neoplasm of descending colon; K64.0 First degree hemorrhoids | CPT/HCPCS: 45385 ==

== ENCOUNTER 2024-11-03 14:20 | Outpatient (REF) | payer OTHER, SELFPAY ==
[2024-11-03 17:36] LABS: Influenza A PCR NEGATIVE (Negative); Influenza B PCR NEGATIVE (Negative); Resp Syncy Virus RNA Qual PCR POSITIVE (Negative); SARS COV2 PCR INHOUSE NEGATIVE (Negative)
== END 2024-11-03 14:21 | disposition home or self-care (01) ==
LOC: HO.LAB 14:20
PROVIDERS: Nurse Practitioner Family; PCP Internal Medicine
DX: J06.9 Acute upper respiratory infection, unspecified (principal); J45.41 Moderate persistent asthma with (acute) exacerbation
CPT/HCPCS: 0241U; 94640

== ENCOUNTER 2024-11-03 14:20 | Outpatient (AMB) | payer OTHER, SELFPAY ==
[2024-11-03 14:31] VITALS: BP 142/90; PULSE 86; TEMP 36.9; O2SAT 96
--- NOTE | 2024-11-03 14:31 | AM.OFFWIN_ITS ---
Intake Vital Signs 11/03/24 14:31 Weight 360 lb BP 142/90 H Blood Pressure Location Rt brachial Position Sitting Pulse 86 Pulse Source Pulse Oximeter Temp 98.5 F Temp Source Oral Pulse Oximetry (%) 96 Oxygen Delivery Method Room Air Intake Visit Reasons: EP-cough, sob Intake Note: Patient here for cough and SOB that started Sunday and worsening. Patient Tobacco Use Status: Former Tobacco user Allergies Seasonal Allergies Allergy (Verified 09/30/24 16:38) Unknown Do you need a note to return to daycare/school/sports/work: No HPI HPI Comments History of Present Illness Details 53 y/o male patient who presents to the walk in clinic with c/o URI symptoms since Sunday. Reports SOB, wheezing, cough, Chest tightness and congestion. H/o Asthma, and he has been using his Rescue inhaler frequently. Reports that his Asthma is always triggered by Strong Smells i.e Perfumes. He sees an Wood Die Maker who has prescribed AirSupra (Albuterol/Budesonide). [facility] Medical History (Updated 11/03/24 @ 14:49 by Charmaine Nichols NP) Asthma exacerbation Acute respiratory disease Right knee pain Left knee pain Screening examination for infectious disease Colon cancer screening Upper respiratory infection Positive anti-CCP test Vitamin D deficiency Back pain COPD (chronic obstructive pulmonary disease) (09/17/23) CTS (carpal tunnel syndrome) Seasonal allergies Allergic rhinitis Osteoarthritis of both knees Asthma Obstructive sleep apnea Hypercholesteremia Bursitis of left shoulder Intermittent asthma Morbid obesity with BMI of 50.0-59.9, adult GERD (gastroesophageal reflux disease) Environmental allergies COVID-19 Surgical History History of right knee surgery Hx of endoscopy [place] teeth extracted Family History Other Family history non-contributory Social History Household Members: Family Housing: House Are you a primary animal care supervisor to a significant other at home: No Do you presently have visiting nurse or other home services: No 75 years or older and lives alone: No Alcohol intake: current Alcohol intake frequency: holidays/special occasions only Patient Tobacco Use Status: Former Tobacco user Tobacco use type: Cigarette e-Cigarette/Vaping Use: Never Used Second Hand Smoke Exposure: Yes service: No Current occupational status: employed 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, 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, 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 Current occupational exposures/hazards: No Cognitive needs: No Hearing needs: No Vision needs: Yes Review of Systems Const All systems reviewed & are unremarkable except as noted in HPI and below Physical Exam Vital Signs: Last Vital Signs Temp 98.5 F 11/03/24 14:31 Pulse 86 11/03/24 14:31 BP 142/90 H 11/03/24 14:31 Pulse Ox 96 11/03/24 14:31 Oxygen Delivery Method Room Air 11/03/24 14:31 Const General: cooperative and no acute distress Nutritional Appearance: obese morbidly obese Orientation/consciousness: patient oriented x3 Resp Effort & Inspection: normal respiratory effort, audible wheezes and Actively coughing Auscultation: wheezes inspiratory wheezes and scattered wheezes Cardio Heart sounds: S1 normal heart sound present and S2 normal heart sound present Neuro General: patient oriented x3, gait normal and moves all extremities Psych Speech and movement: Normal speech and movement present Office Procedures Nebulizer Treatment Nebulizer Treatment 88506-Uthonyonx/MDI RX initial, or Nebulizer Subsequent Treatment Office Meds ipratropium 0.5 mg-albuterol 3 mg (2.5 mg base)/3 mL nebulization soln Performing Provider: Charmaine Nichols NP Performing Location[place] [facility] [place] Administered by: Charmaine Nichols NP on 11/03/24 14:51 Dose Route Admin Location Dispensed Lot Number Expiration Date [facility] [employer] [place] 3 mL inhalation 3 mL 10/03/25 [id number] P Assessment & Plan Assessment & Plan (1) Acute respiratory disease: Code(s): J06.9 - Acute upper respiratory infection, unspecified Plan: Ordered SARs (2) Asthma exacerbation: Code(s): J45.901 - Unspecified asthma with (acute) exacerbation Qualifiers: Asthma persistence: persistent Asthma severity: moderate Qualified Code(s): J45.41 - Moderate persistent asthma with (acute) exacerbation Plan: Ordered In-office Neb Treatment. Ordered Doxy and Prednisone. Orders: Orders AMB Nebulizer Treatment Today J45.41 - Moderate persistent asthma with (acute) exacerbation SARS-CoV2/FLU/RSV Today J06.9 - Acute upper respiratory infection, unspecified Medications: New prednisone 50 mg PO DAILY 5 days 5 tabs 0RF J45.41 - Moderate persistent asthma with (acute) exacerbation ipratropium-albuterol 0.5 mg-3 mg(2.5 mg base)/3 mL 3 mL inhalation Q4-6H PRN 90 mL 0RF wheezing J45.41 - Moderate persistent asthma with (acute) exacerbation doxycycline hyclate 100 mg PO BID 10 days 20 tabs 0RF J45.41 - Moderate persistent asthma with (acute) exacerbation Coding Level of Care Code Est Pt Level 4 (65400) Diagnoses Acute respiratory disease J06.9 Moderate persistent asthma with exacerbation J45.41 Asthma persistence: persistent Asthma severity: moderate CPT Codes Nebulizer Treatment - Nebulizer Treatment, initial or subsequent: 34338- Nebulizer/MDI RX initial, or Nebulizer Subsequent Treatment ([id number]) Time Spent (min) 20
--- OUTSIDE RECORDS SUMMARY | 2024-11-03 16:10 | XMS_ITS | Patient Health Record ---
Author Organization [facility] Address [address] [place] [address] Care Team Providers Care Hired Hand Name Role Phone SOTERO RODRIGUEZ Unavailable [phone] ALLERGIES No Known Allergies REASON FOR REFERRAL No Information MEDICATIONS Medication SIG (Take, Route, Frequency, Duration) Notes Start Date End Date Status Tylenol Active Mounjaro 5 MG/0.5ML as directed Subcutan eous weekly for 30 days Active predniSONE 20 MG 1 tablet Orally Once a day Active Albuterol Sulfate HFA 108 (90 Base) MCG/ACT 1 puff as needed Inhalation every 4 hrs Active Nasal [place] 0.05 % 2 sprays in each nos tril as needed Nasally Twice a day Activ e Trulicity 1.5 MG/0.5ML as directed Subcu taneous weekly for 30 days Active Doxycycline Active Ozempic (0.25 or 0.5 MG/DOSE) 2 MG/1.5ML Inject 1mg Subcutaneous weekly for 90 days Active Mounjaro 7.5 MG/0.5ML inject 7.5mg weekl y subcutaneously Please fill prescription through the [employer] co-pay card program and not through insurance [...] due to excess calories (E66.01) Active confirmed [id number] Problem Prediabetes (R73.03) Active confirmed [id number] Problem Obesity (BMI 30.0-34.9) (E66.9) Active confirmed [id number] Problem IRLANDA (obstructive sleep apnea) (G47.33) Active confirmed 36103127 Problem Body mass index [BMI] 50.0-59.9, adult (Z68.43) Active confirmed 920206342 Problem Body mass index [BMI] 60.0-69.9, adult (Z68.44) Active confirmed 058090837 Problem Hyperinsulinemia (E16.1) Active confirmed 97418954 Problem BMI 45.0-49.9, adult (Z68.42) Active confirmed 684711293 PLAN OF TREATMENT Pending Test Test Name Order Date EKG 02/22/2021 HEMOGLOBIN A1C 09/28/2021 Insulin Level 09/28/2021 Insurance Providers Payer Name Payer Address Payer Phone Subscriber Number Group Number Insured Name Patient Relationship to Insured Coverage Start Date Coverage End Date [facility] [address] [place] [address] [id number] Carl Duke Self - patient is the insured 2 MEDICATIONS ADMINISTERED Medication Instructions Date of Administration Dosage Notes MICC B12 INJECTION 09/28/2021 1 mL MICC B12 INJECTION 10/26/2021 MICC B12 INJECTION 12/01/2021 lot # [id number] MICC B12 INJECTION 01/12/2022 1 MICC B12 INJECTION 02/15/2022 1 MICC B12 INJECTION 03/27/2022 1 MICC B12 INJECTION 04/27/2022 MICC B12 INJECTION 06/08/2022 MICC B12 INJECTION 07/18/2022 MICC B12 INJECTION 09/07/2022 MICC B12 INJECTION 10/05/2022 MEDICAL (GENERAL) HISTORY Medical History History ICD Code asthma seasonal allergies gallstones
== END 2024-11-03 15:21 | disposition home or self-care (01) ==
PROVIDERS: PCP Internal Medicine; Visit Provider Nurse Practitioner Family
DX: J06.9 Acute upper respiratory infection, unspecified (principal); J45.41 Moderate persistent asthma with (acute) exacerbation

== ENCOUNTER 2024-11-18 08:32 | Outpatient (AMB) | payer OTHER, SELFPAY ==
--- NOTE | 2024-11-18 08:41 | A.OFFPC_ITS ---
Vital Signs 11/18/24 08:43 Height 5 ft 7 in Weight 366 lb 13.587 oz BMI 57.5 BP 140/80 H Blood Pressure Location Lt brachial Position Sitting Pulse 87 Pulse Source Pulse Oximeter Temp 97.3 F Temp Source Temporal Artery Scan Pulse Oximetry (%) 97 Oxygen Delivery Method Room Air Intake Visit Reasons: cough not getting better Intake Note: Patient is here to follow up on Cough not getting better.. Sales Manager [place] Required: No Nuclear Medicine Pet Ct Technologist: Not Required per policy Accompanied by: Self / Same As Patient Allergies Seasonal Allergies Allergy (Verified 11/18/24 08:42) Unknown Medication List - Last Reconciled 11/18/24 by Rukhsana Sierra MD albuterol-budesonide 90-80 mcg/actuation (Airsupra) 2 inhalations inhalation Q4- 6H PRN benzonatate 200 mg PO BID-TID PRN cholecalciferol (vitamin D3) 50 mcg PO DAILY 90 days ipratropium-albuterol 0.5 mg-3 mg(2.5 mg base)/3 mL 3 mL inhalation Q4-6H PRN loratadine 10 mg PO DAILY prednisone 4 tabs QD x 2 days then 3 tabs QD x 2 days then 2 tabs Qd x 2 days then 1 tab QD x 2 days PO daily; Tobacco use date assessed: 11/18/24 Dental Screening Dental Screen Date: 09/30/24 [facility] Medical History (Updated 11/18/24 @ 08:47 by Rukhsana Sierra MD) Asthma exacerbation Acute respiratory disease Right knee pain Left knee pain Screening examination for infectious disease Colon cancer screening Upper respiratory infection Positive anti-CCP test Vitamin D deficiency Back pain COPD (chronic obstructive pulmonary disease) (09/17/23) CTS (carpal tunnel syndrome) Seasonal allergies Allergic rhinitis Osteoarthritis of both knees Asthma Obstructive sleep apnea Hypercholesteremia Bursitis of left shoulder Intermittent asthma Morbid obesity with BMI of 50.0-59.9, adult GERD (gastroesophageal reflux disease) Environmental allergies COVID-19 Surgical History History of right knee surgery Hx of endoscopy [place] teeth extracted Family History Other Family history non-contributory Social History (Reviewed 04/15/25 @ 08:41 by JULIUS Peraza Household Members: Family Housing: House Are you a primary medication care manager to a significant other at home: No Do you presently have visiting nurse or other home services: No 75 years or older and lives alone: No Alcohol intake: current Alcohol intake frequency: holidays/special occasions only Patient Tobacco Use Status: Former Tobacco user Tobacco use type: Cigarette e-Cigarette/Vaping Use: Never Used Second Hand Smoke Exposure: Yes service: No Current occupational status: employed 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, 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, 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 Current occupational exposures/hazards: No Cognitive needs: No Hearing needs: No Vision needs: Yes Questionnaire Thrive Questionnaire Date Thrive assessed: 09/30/24 I am a: Patient What is your living situation today?: I have a steady place to live Within the past 12 months, did the food you bought not last and you didn't have the money to get more?: Never true Within the past 12 months, did you worry whether your food would run out before you got money to buy more?: Never true Do you have trouble paying for medicines?: No Do you have trouble getting transportation to medical appointments?: No Do you have trouble paying your heating and electricity bill?: No Do you have trouble taking care of your child, family member or friend?: No Do you have trouble with day-to-day activities such as bathing, preparing meals, shopping, managing finances, etc.?: No Are you currently unemployed and looking for a job?: No Are you interested in more education?: No Please select the resources that you would like help with: None Currently or been in a relationship where the following occur: No concerns reported THRIVE Score: 0 FAUSTINA-7 AMB Questionnaire FAUSTINA-7 Date FAUSTINA - 7 assessed: 09/30/24 Source: Developed by Drs. Michele Chen, Sima Grewal, Cain Juarez and colleagues, with an educational dalton from [employer]. Physical exam (Primary Care) Vital Signs: Last Vital Signs Temp 97.3 F 11/18/24 08:43 Oxygen Delivery Method Room Air 11/18/24 08:43 BMI result Body Mass Index 57.5 Tobacco/Smoking Status: Tobacco use Status Tobacco use date assessed 09/30/24 09/30/24 16:04 Patient Tobacco Use Status Former Tobacco user 11/03/24 14:34 Tobacco use type Cigarette 09/30/24 16:04 e-Cigarette/Vaping Use Never Used 09/30/24 16:04 Thrive Assessment: Date of Thrive Assessment Date Thrive assessed 09/30/24 09/30/24 16:04 Currently or been in a relationship where the following occur: No concerns reported Const General: alert; No acute distress Eyes Conjunctivae: conjunctivae normal Resp Auscultation: clear to auscultation bilaterally Cardio Rate: regular rate Rhythm: regular rhythm GI Inspection: Yes normal to inspection Extrem General: Yes normal to inspection and No edema Coding Level of Care Code Est Pt Level 4 (63327) Diagnoses Moderate persistent asthma with exacerbation J45.41 Asthma severity: moderate Asthma persistence: persistent RSV (respiratory syncytial virus infection) B33.8 Morbid obesity with BMI of 50.0-59.9, adult E66.01; Z68.43 Obstructive sleep apnea G47.33 Assessment & Plan Assessment & Plan (1) Asthma exacerbation: Code(s): J45.901 - Unspecified asthma with (acute) exacerbation Category: Medical Qualifiers: Asthma severity: moderate Asthma persistence: persistent Qualified Code(s): J45.41 - Moderate persistent asthma with (acute) exacerbation Plan: Patient on Air supra, DuoNeb and has been prescribed in November 03 with doxycycline and prednisone. Patient is prescribed another batch of steroids with slow taper and refilled Air supra (2) RSV (respiratory syncytial virus infection): Code(s): B33.8 - Other specified viral diseases Category: Medical Plan: Discussed about supportive management keep well hydrated. For the sore throat can take Cepacol lozenges, discussed about Delsym/Tessalon to help with dry cough so she can rest and advised to increase oral fluids. Patient also can take Tylenol for chills and fever. (3) Morbid obesity with BMI of 50.0-59.9, adult: Code(s): E66.01 - Morbid (severe) obesity due to excess calories; Z68.43 - Body mass index [BMI] 50.0-59.9, adult Category: Medical Plan: Discussed about diet and exercise (4) Obstructive sleep apnea: Comment: no CPAP use, unable to tolerate mask Code(s): G47.33 - Obstructive sleep apnea (adult) (pediatric) Category: Medical Plan: Discussed about the importance of treatment for sleep apnea Plan History of Present Illness The patient is a 54-year-old male presenting with a follow-up for recent respiratory symptoms and chronic condition management. His recent acute episode involved a visit to urgent care on November 03 for cough, wheezing, chest tightness, and congestion attributed to RSV infection. Treatment at that time included doxycycline and prednisone, though the patient discovered that antibiotics would be ineffective against the viral RSV. The patient also has chronic conditions including asthma, bilateral knee osteoarthritis, gastroesophageal reflux disease (GERD), hypercholesterolemia, and obstructive sleep apnea, which he is unable to effectively manage with CPAP. In addition to the acute respiratory symptoms, he has been managing asthma with combination medication consisting of albuterol and a steroid, but noted running low on the supply. Events were precipitated following the detection of tubular adenoma during a colonoscopy on October 21. The patient acknowledged respiratory symptoms impact his asthma control, reporting daily nebulizer use with inconsistent results and denying any associated fever or sore throat. Health Maintenance - Discussion on the importance of managing sleep apnea and potential follow-up with sleep specialists for re-evaluation. Social History - Employment status, housing, and family status not discussed. - No substance use discussed. - Exercise and nutritional intake details not discussed. - Patient expressed restrictions in receiving allergy shots due to recent respiratory symptoms. Review of Systems - Respiratory: Reports wheezing, chest tightness, congestion, and difficulty catching breath; Denies fever, sore throat. - Allergies/Immunology: Reports having allergies and receiving allergy shots. - Gastrointestinal: Recent colonoscopy revealing tubular adenoma. Physical Exam - Respiratory- No significant wheezing upon auscultation; mild wheezing noted during previous urgent care visit. - General- Oxygen saturation observed to be 95%. Results - Tests: Recent colonoscopy on October 21 revealed a tubular adenoma. Plan The patient's asthma exacerbation related to the recent RSV infection will be managed with an 8-day course of tapered prednisone. Additionally, a prescription for albuterol and steroid combination inhaler will be refilled based on the current insufficient supply. He will receive medication for cough management to enhance his ability to rest at night. An evaluation regarding the appropriateness of a new sleep study for his obstructive sleep apnea will be pursued, pending insurance approval. For longer-term management, reinforcing lifestyle and dietary modifications will be advised to further address hypercholesterolemia and GERD. Consistent monitoring and planned follow-up for all chronic conditions will be emphasized to optimize patient outcomes. Patient was informed and verbally consented to the use of an ambient scribe for clinic note documentation during this visit. Discussion Notes During the visit, I discussed the patient's recent RSV respiratory episode and highlighted the viral nature of the infection, which renders antibiotics ineffective. Management will focus on a tapered prednisone regimen to alleviate symptoms, which was detailed in dosage and schedule. It was noted that the patient's inhaler supply needed replenishment, and a process was initiated for this. The importance of sleep apnea evaluation was stressed, and I explained the impact of unaddressed conditions on cardiovascular health. Given the insurance complications with prior sleep studies, a re-evaluation referral was considered should coverage issues be resolved. I outlined the benefits of cough medication for nighttime relief and emphasized maintaining hydration. The patient agreed with the outlined plan, which will be dynamically assessed based on symptomatic resolution. Recognition of the link between untreated sleep apnea and cardiovascular risk was also discussed. Patient Instructions - Begin taking the prescribed prednisone as an 8-day taper schedule. - Utilize newly refilled inhaler as directed for asthma management. - Take cough medication as prescribed at night to facilitate better rest. - Ensure adequate hydration to assist in recovery. - Follow recommendations for diet and exercise to support hypercholesterolemia and GERD management. - Monitor symptoms and notify healthcare provider if there is worsening of breathing difficulties or other concerning symptoms. - Await contact regarding potential sleep study referral and insurance updates. Orders: Referrals Sleep Medicine Referral G47.33 - Obstructive sleep apnea (adult) (pediatric) Medications: New albuterol-budesonide 90-80 mcg/actuation (Airsupra) 2 inhalations inhalation Q4-6H PRN 10.7 grams 0RF Allergic Symptoms B33.8 - Other specified viral diseases benzonatate 200 mg PO BID-TID PRN 20 caps 1RF cough B33.8 - Other specified viral diseases prednisone 4 tabs QD x 2 days then 3 tabs QD x 2 days then 2 tabs Qd x 2 days then 1 tab QD x 2 days PO daily; 20 tabs 0RF B33.8 - Other specified viral diseases, J45.909 - Unspecified asthma, uncomplicated
[2024-11-18 08:43] VITALS: BP 140/80; PULSE 87; TEMP 36.3; O2SAT 97; BMI 57.5
--- OUTSIDE RECORDS SUMMARY | 2024-11-18 08:51 | XMS_ITS | Patient Health Record ---
Author Organization [facility] Address [address] [place] [address] Care Team Providers Care Diversional Therapist Name Role Phone SOTERO RODRIGUEZ Unavailable [phone] ALLERGIES No Known Allergies REASON FOR REFERRAL No Information MEDICATIONS Medication SIG (Take, Route, Frequency, Duration) Notes Start Date End Date Status Tylenol Active Mounjaro 5 MG/0.5ML as directed Subcutan eous weekly for 30 days Active predniSONE 20 MG 1 tablet Orally Once a day Active Albuterol Sulfate HFA 108 (90 Base) MCG/ACT 1 puff as needed Inhalation every 4 hrs Active Nasal [place] 0.05 % 2 sprays in each nos tril as needed Nasally Twice a day Activ e Trulicity 1.5 MG/0.5ML as directed Subcu taneous weekly for 30 days Active Doxycycline Active Ozempic (0.25 or 0.5 MG/DOSE) 2 MG/1.5ML Inject 1mg Subcutaneous weekly for 90 days Active Mounjaro 7.5 MG/0.5ML inject 7.5mg weekl y subcutaneously Please fill prescription through the [employer] co-pay card program and not through insurance [...] due to excess calories (E66.01) Active confirmed [id number] Problem Prediabetes (R73.03) Active confirmed 381527902 Problem Obesity (BMI 30.0-34.9) (E66.9) Active confirmed [id number] Problem IRLANDA (obstructive sleep apnea) (G47.33) Active confirmed 31129743 Problem Body mass index [BMI] 50.0-59.9, adult (Z68.43) Active confirmed 624733380 Problem Body mass index [BMI] 60.0-69.9, adult (Z68.44) Active confirmed 268251476 Problem Hyperinsulinemia (E16.1) Active confirmed 97893046 Problem BMI 45.0-49.9, adult (Z68.42) Active confirmed 305845825 PLAN OF TREATMENT Pending Test Test Name Order Date EKG 02/22/2021 HEMOGLOBIN A1C 09/28/2021 Insulin Level 09/28/2021 Insurance Providers Payer Name Payer Address Payer Phone Subscriber Number Group Number Insured Name Patient Relationship to Insured Coverage Start Date Coverage End Date [facility] [address] [place] [address] [id number] Carl Duke Self - patient is the insured 2 MEDICATIONS ADMINISTERED Medication Instructions Date of Administration Dosage Notes MICC B12 INJECTION 09/28/2021 1 mL MICC B12 INJECTION 10/26/2021 MICC B12 INJECTION 12/01/2021 lot # [id number] MICC B12 INJECTION 01/12/2022 1 MICC B12 INJECTION 02/15/2022 1 MICC B12 INJECTION 03/27/2022 1 MICC B12 INJECTION 04/27/2022 MICC B12 INJECTION 06/08/2022 MICC B12 INJECTION 07/18/2022 MICC B12 INJECTION 09/07/2022 MICC B12 INJECTION 10/05/2022 MEDICAL (GENERAL) HISTORY Medical History History ICD Code asthma seasonal allergies gallstones
== END 2024-11-18 09:05 | disposition home or self-care (01) ==
LOC: HO.HMCH 08:33
PROVIDERS: PCP Internal Medicine; Visit Provider Internal Medicine
DX: J45.41 Moderate persistent asthma with (acute) exacerbation (principal); B33.8 Other specified viral diseases; E66.01 Morbid (severe) obesity due to excess calories; Z68.43 Body mass index [BMI] 50.0-59.9, adult; G47.33 Obstructive sleep apnea (adult) (pediatric)

== ENCOUNTER → 2024-11-18 08:32 | Outpatient (BNVA) | payer OTHER, SELFPAY | PROVIDERS: PCP Internal Medicine; Visit Provider Internal Medicine ==

== ENCOUNTER 2025-01-21 15:03 | Outpatient (AMB) | payer OTHER, SELFPAY ==
--- NOTE | 2025-01-21 15:08 | A.OFFVIS_ITS ---
Vital Signs 01/21/25 15:09 Height 5 ft 7 in Weight 357 lb 6 oz BMI 56.0 BP 138/88 Blood Pressure Location Lt brachial Position Sitting Pulse 80 Pulse Source Pulse Oximeter Pulse Oximetry (%) 98 Oxygen Delivery Method Room Air Intake Visit Reasons: INP-IRLANDA Intake Note: Patient presents [employer] IRLANDA. Obstructive sleep apnea, which he is unable to effectively manage with CPAP. Patient stated that he started CPAP but he is a very light sleeper when he would turn, the machine would wake him up and he was getting less sleep with the CPAP then he was before starting it. Accompanied by: Self / Same As Patient Allergies Seasonal Allergies Allergy (Verified 01/21/25 15:12) Unknown HPI Comments Details: 54 year old male patient f/u for evaluation of sleep apnea referred to us by his PCP. He had a HST c/w [place] many years ago, however unable to keep up with the management of cpap use and now he is having trouble breathing at night, will stop breathing, gasps for air, his sleep study was done over 10 years ago. He goes to bed after midnight, and gets up for the bathroom several times, finally at 7 am he gets up for work. He has trouble staying asleep. He has always been a very light sleeper, was waking up with the CPAP. Memory is fine. Mood fluctuates, irritability due to stress. His diet is poor, would like to reduce weight, he was on a GLP 1 agonist, monjarou however now discontinued it. His BP was elevated in November 2024, now it is better managed. Denies RLS and Headaches. Denies grinding his teeth. He is not a smoker, drinks alcohol rarely. Denies MJ edibles. [facility] Medical History Asthma exacerbation Acute respiratory disease Right knee pain Left knee pain Screening examination for infectious disease Colon cancer screening Upper respiratory infection Positive anti-CCP test Vitamin D deficiency Back pain COPD (chronic obstructive pulmonary disease) (09/17/23) CTS (carpal tunnel syndrome) Seasonal allergies Allergic rhinitis Osteoarthritis of both knees Asthma Obstructive sleep apnea Hypercholesteremia Bursitis of left shoulder Intermittent asthma Morbid obesity with BMI of 50.0-59.9, adult GERD (gastroesophageal reflux disease) Environmental allergies COVID-19 Surgical History History of colonoscopy (~10/21/24) History of right knee surgery Hx of endoscopy [place] teeth extracted Family History Other Family history non-contributory Social History Household Members: Family Housing: House Are you a primary daycare director to a significant other at home: No Do you presently have visiting nurse or other home services: No 75 years or older and lives alone: No Alcohol intake: current Alcohol intake frequency: holidays/special occasions only Patient Tobacco Use Status: Former Tobacco user Tobacco use type: Cigarette e-Cigarette/Vaping Use: Never Used Second Hand Smoke Exposure: Yes service: No Current occupational status: employed 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, 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, 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 Current occupational exposures/hazards: No Cognitive needs: No Hearing needs: No Vision needs: Yes Physical Exam Vital Signs: Last Vital Signs Pulse 80 01/21/25 15:09 BP 138/88 01/21/25 15:09 Pulse Ox 98 01/21/25 15:09 Oxygen Delivery Method Room Air 01/21/25 15:09 BMI result Body Mass Index 56.0 obese BMI is 56 Const General: cooperative and no acute distress Nutritional Appearance: obese (BMI is 56) Orientation/consciousness: patient oriented x3 HEENT Face and sinus: Yes face symmetric Throat: Yes other ([place] score 3) Eyes Pupils: Equal, round and reactive pupils present Neck Neck: Yes full ROM Resp Effort & Inspection: normal respiratory effort and able to speak in complete sentences Neuro General: patient oriented x3 and moves all extremities Cranial nerves: Yes Facial sensation intact/muscles of mastication intact, Yes Equal, round and reactive pupils present, Yes Normal accommodation reflex present, Yes Normal facial strength present, Yes Midline tongue present, Yes Ability to bilaterally rotate head present and Yes Ability to bilaterally elevate shoulders present Cognition (Neuro): normal cognition Gait exam (Neuro): Normal gait present Motor exam (neuro): 5/5 motor strength present throughout and Normal motor muscle tone present throughout Psych Thought process: Normal thought process present Thought content: Normal thought content present Assessment & Plan Assessment & Plan (1) Excessive daytime sleepiness: Code(s): G47.19 - Other hypersomnia Category: Medical (2) Loud snoring: Code(s): R06.83 - Snoring Category: Medical Plan HST excessive daytime fatigue and snoring Labs r/o deficiencies -SLE and or Scleroderma Orders: Orders Vitamin B12 and Folate 01/21/25 G47.19 - Other hypersomnia Methylmalonic Acid 01/21/25 G47.19 - Other hypersomnia, G47.9 - Sleep disorder, unspecified, R53.83 - Other fatigue Homocysteine 01/21/25 G47.19 - Other hypersomnia, G47.9 - Sleep disorder, unspecified, R53.83 - Other fatigue RT home sleep study 01/21/25 G47.19 - Other hypersomnia Vitamin B1 01/21/25 G47.19 - Other hypersomnia IRON PROFILE 01/21/25 G47.19 - Other hypersomnia, G47.9 - Sleep disorder, unspecified, R53.83 - Other fatigue Ferritin 01/21/25 G47.19 - Other hypersomnia Patient Instructions: Sleep Hygiene provided: set a scheduled bedtime and wake time to help regulate the circadian rhythm and balance the release of pituitary hormones. Sleep in a dark room, temperatures below 68 degrees, and no devices n bed. Limit caffeinated products 6 hours prior to bed, and limit fluids 2-4 hours prior to bed. Gentle night yoga, diffusing essential oils, and playing soft music can be relaxing. Coding Level of Care Code New Pt Level 4 (45148) Diagnoses Excessive daytime sleepiness G47.19 Loud snoring R06.83 Time Spent (min) 30 Comment Evaluation
[2025-01-21 15:09] VITALS: BP 138/88; PULSE 80; O2SAT 98; BMI 56.0
--- OUTSIDE RECORDS SUMMARY | 2025-01-21 17:21 | XMS_ITS | Patient Health Record ---
[facility] Address [address] [place] [address] Care Team Providers Care Press Tender Long Goods Name Role Phone SOTERO RODRIGUEZ Unavailable [phone] Allergies No Known Allergies Reason For Referral No Information Medications Medication SIG (Take, Route, Frequency, Duration) Notes Start Date End Date Status Tylenol Active Mounjaro 5 MG/0.5ML as directed Subcutan eous weekly for 30 days Active predniSONE 20 MG 1 tablet Orally Once a day Active Albuterol Sulfate HFA 108 (90 Base) MCG/ACT 1 puff as needed Inhalation every 4 hrs Active Nasal [place] 0.05 % 2 sprays in each nos tril as needed Nasally Twice a day Activ e Trulicity 1.5 MG/0.5ML as directed Subcu taneous weekly for 30 days Active Doxycycline Active Ozempic (0.25 or 0.5 MG/DOSE) 2 MG/1.5ML Inject 1mg Subcutaneous weekly for 90 days Active Mounjaro 7.5 MG/0.5ML inject 7.5mg weekl y subcutaneously Please fill prescription through the [employer] co-pay card program and not through insurance Prior authorization NOTrequired Diagnosis e11.9 Subcutaneous weekly for 30 days 07/18/2022 Active Mounjaro 10 MG/0.5ML 10mg Subcutaneous w eekly for 30 days Active Immunizations Vaccine Route Administration Date Status Comme nts Flu vaccine no Preserv 3 and > Unknown 07/14/2021 Admin istered Pfizer Covid-19 Vaccine Unknown 09/18/2020 Administered Pfizer Covid-19 Vaccine Unknown 10/09/2020 Administered Pfizer Covid-19 Vaccine Unknown 07/14/2021 Administered Tdap Unknown 02/04/2012 Administered Social History Tobacco Use: Social History Observation Description Date Details (start date - stop date) Former Smoker NA - NA Tobacco Use/Smoking Question Answer Notes Are you [...] started at the age of 16year old Problems Problem Type SNOMED Code ICD Code Onset Dates Problem Status W/U Status Risk Notes Problem 375089217 Morbid (severe) obesity due to excess calories (E66.01) Active confirmed Problem 390186355 Prediabetes (R73.03) Active confirmed Problem 458617521510665 Obesity (BMI 30.0-34.9) (E66.9) Active confirmed Problem 40172592 IRLANDA (obstructive sleep apnea) (G47.33) Active confirmed Problem 125396294 Body mass index [BMI] 50.0-59.9, adult (Z68.43) Active confirmed Problem 975198308 Body mass index [BMI] 60.0-69.9, adult (Z68.44) Active confirmed Problem 67369118 Hyperinsulinemia (E16.1) Active confirmed Problem 418718315 BMI 45.0-49.9, adult (Z68.42) Active confirmed Plan Of Treatment Pending Test Test Name Order Date EKG 02/22/2021 HEMOGLOBIN A1C 09/28/2021 Insulin Level 09/28/2021 Insurance Providers Payer Name Payer Address Payer Phone Subscriber Number Group Number Insured Name Patient Relationship to Insured Coverage Start Date Coverage End Date [facility] [address] [place] [address] [id number] Carl Duke Self - patient is the insured 2 Medications Administered Medication Instructions Date of Administration Dosage Notes MICC B12 INJECTION 09/28/2021 1 mL MICC B12 INJECTION 10/26/2021 MICC B12 INJECTION 12/01/2021 lot # [id number] MICC B12 INJECTION 01/12/2022 1 MICC B12 INJECTION 02/15/2022 1 MICC B12 INJECTION 03/27/2022 1 MICC B12 INJECTION 04/27/2022 MICC B12 INJECTION 06/08/2022 MICC B12 INJECTION 07/18/2022 MICC B12 INJECTION 09/07/2022 MICC B12 INJECTION 10/05/2022 Medical (General) History Medical History History ICD Code asthma seasonal allergies gallstones
== END 2025-01-21 15:42 | disposition home or self-care (01) ==
LOC: HO.HSMS 15:03
PROVIDERS: PCP Internal Medicine; Visit Provider Physician Assistant Medical
DX: G47.19 Other hypersomnia (principal); R06.83 Snoring
CPT/HCPCS: 99204

== ENCOUNTER → 2025-01-21 15:03 | Outpatient (BNVA) | payer OTHER, SELFPAY | PROVIDERS: PCP Internal Medicine; Visit Provider Physician Assistant Medical ==

== ENCOUNTER 2025-03-27 08:29 | Outpatient (REF) | payer OTHER, SELFPAY ==
--- OUTSIDE RECORDS SUMMARY | 2025-03-27 08:43 | XMS_ITS ---
Author Name [facility] Organization Unknown Care Team Organization Name Specialty Phone Email Start Date End Da te [facility] De La [facility] 08/14/2022 4 [facility] ZAID WATERS Primary Care 06/13/2022 4
--- OUTSIDE RECORDS SUMMARY | 2025-03-27 08:43 | XMS_ITS | Encounter Summary ---
Author Organization [facility] Address [address] [place] [address] Phone Care Team Providers Care Bolt Threader Name Role Phone Pcp, Unknown Primary Care Provider Unavailabl e Encounter Details Date Type Department Care Team (Late st Contact Info) Description 09/18/2023 Procedure Pass [facility], Ct Scan - [address] [address] Social History Tobacco Use Types Packs/Day Years Used Date Smoking Tobacco: Never Assessed Education Answer Date Recorded Are you interested in more education? Not on nabeel e 09/17/2023 Are you concerned about learning? Not on file 09/17/2023 No 09/17/2023 No 09/17/2023 Digital Access Answer Date Recorded No 09/17/2023 No 09/17/2023 Reliable internet access at home? Not on file 09/17/2023 Device with a working camera? Not on file Intimate Partner Violence Answer Date R ecorded Are you denied basic needs s uch as food, clothing, or medical care? No 09/17/2023 In the past 12 months have y ou been in a relationship with a person who hurts, threatens, or tries to control you? No 09/17/2023 Are you denied basic needs s uch as food, clothing, or medical care? No 09/17/2023 In the past 12 months have y ou been in a relationship with a person who hurts, threatens, or tries to control you? No 09/17/2023 Sex and Gender Information Value Date Recorded Sex Assigned at Not on file Legal Sex Male 3:35 PM EDT Gender Identity Not on file Sexual Orientation Not on file documented as of this encounter Plan of Treatment Not on file documented as of this encounter Visit Diagnoses Not on filedocumented in this encounter Care Teams Bolt Threader Relationship Specialty Start Date End Date Pcp, Unknown PCP - General 03/30/23 documented as of this encounter Additional Source Comments The information contained in this document represents components of the legal health record. It is not the complete legal health record.[facility]
--- OUTSIDE RECORDS SUMMARY | 2025-03-27 08:43 | XMS_ITS | Patient Health Record ---
[facility] [address] Address [address] [place] [address] Care Team Providers Care Grey Stock Recorder Name Role Phone SOTERO RODRIGUEZ Unavailable [phone] Allergies No Known Allergies Reason For Referral No Information Medications Medication SIG (Take, Route, Frequency, Duration) Notes Start Date End Date Status Tylenol Active Mounjaro 5 MG/0.5ML as directed Subcutan eous weekly; Duration: 30 days Active predniSONE 20 MG 1 tablet Orally Once a day Active Albuterol Sulfate HFA 108 (90 Base) MCG/ACT 1 puff as needed Inhalation every 4 hrs Active Nasal [place] 0.05 % 2 sprays in each nos tril as needed Nasally Twice a day Activ e Trulicity 1.5 MG/0.5ML as directed Subcu taneous weekly; Duration: 30 days Active Doxycycline Active Ozempic (0.25 or 0.5 MG/DOSE) 2 MG/1.5ML Inject 1mg Subcutaneous weekly; Duration: 90 days Active Mounjaro 7.5 MG/0.5ML inject 7.5mg weekl y subcutaneously Please fill prescription through the [employer] co-pay card program and not through insurance Prior authorization NOTrequired Diagnosis e11.9 Subcutaneous weekly; Duration: 30 days 07/18/2022 Active Mounjaro 10 MG/0.5ML 10mg Subcutaneous w tyree; Duration: 30 days Active Immunizations Vaccine Route Administration [...] the age of 16year old Quit smoking 1985 about 1 pk a day started at the age of 16year old Problems Problem Type SNOMED Code ICD Code Onset Dates Problem Status W/U Status Risk Notes Problem Morbid obesity (disorder) (814083438) Morbid (severe) obesity due to excess calories (E66.01) Active confirmed Problem Prediabetes (888122100) Prediabetes (R73.03) Active confirmed Problem Obese class I (finding) (095270099657818) Obesity (BMI 30.0-34.9) (E66.9) Active confirmed Problem Obstructive sleep apnea syndrome (72455106) IRLANDA (obstructive sleep apnea) (G47.33) Active confirmed Problem Body mass index 40+ - morbidly obese (699171733) Body mass index [BMI] 50.0-59.9, adult (Z68.43) Active confirmed Problem Body mass index 30+ - obesity (finding) (224856559) Body mass index [BMI] 60.0-69.9, adult (Z68.44) Active confirmed Problem Hyperinsulinemia (85586985) Hyperinsulinemia (E16.1) Active confirmed Problem Body mass index 40+ - severely obese (334795892) BMI 45.0-49.9, adult (Z68.42) Active confirmed Plan Of Treatment Pending Test Test Name Order Date EKG 02/22/2021 HEMOGLOBIN A1C 09/28/2021 Insulin Level 09/28/2021 Insurance Providers Payer Name Payer Address Payer Phone Subscriber Number Group Number Insured Name Patient Relationship to Insured Coverage Start Date Coverage End Date [facility] [address] [place] [address] [id number] Carl Duke Self - patient is the insured 2 Medications Administered Medication Instructions Date of Administration Dosage Notes MICC B12 INJECTION 09/28/2021 1 mL MICC B12 INJECTION 10/26/2021 MICC B12 INJECTION 12/01/2021 lot # [id number] MICC B12 INJECTION 01/12/2022 1 MICC B12 INJECTION 02/15/2022 1 MICC B12 INJECTION 03/27/2022 1 MICC B12 INJECTION 04/27/2022 MICC B12 INJECTION 06/08/2022 MICC B12 INJECTION 07/18/2022 MICC B12 INJECTION 09/07/2022 MICC B12 INJECTION 10/05/2022 Medical (General) History Medical History History ICD Code asthma seasonal allergies gallstones
[2025-03-27 09:11] LABS: MANUAL DIFF FLAG NO
[2025-03-27 09:14] LABS: Hematocrit 44.0 % (42.0-52.0); Hemoglobin 13.8 g/dl (14.0-18.0); Imm Gran Abs Auto 0.06 X10*3/uL (0.00-0.03); Imm Gran Pct Auto 0.6 % (0.0-0.4); Lymphocytes Absolute Auto 1.8 X10*3/uL (1.2-4.9); Mean Corpuscular HGB Conc 31.4 g/dl (31.0-36.0); Mean Corpuscular Hemoglobin 26.6 pg (27.0-33.0); Mean Corpuscular Volume 84.9 fL (80.0-98.0); NRBC Abs Auto 0.000 X10*3/uL (0.0-0.012); NRBC Pct Auto 0.0 /100WBC (0.0-0.2); Platelet Count 328 X10*3/uL (160-400); Red Blood Count 5.18 X10*6/uL (4.60-5.80); White Blood Count 9.3 X10*3/uL (4.8-10.8)
[2025-03-27 09:53] LABS: Hemoglobin A1C 146.7714 umol/L; Total Hemoglobin (HGBA1C) 3624.5156 umol/L
[2025-03-27 10:31] LABS: Alanine Aminotransferase 16 U/L (0-40); Albumin Level 3.7 g/dL (3.5-5.0); Alkaline Phosphatase 59 U/L (39-117); Anion Gap 10 (12-20); Aspartate Amino Transferase 22 U/L (5-37); Blood Urea Nitrogen 12 mg/dL (9-16); Calcium 8.7 mg/dL (8.4-10.2); Carbon Dioxide 28 mmol/L (22-29); Chloride 107 mmol/L (96-108); Cholesterol 154 mg/dL (<200); Estimated Glomerular Filt Rate > 60; HDL Cholesterol 38 mg/dL (>40); Iron 44 mcg/dL (45-160); Percent Iron Saturation 16 % (15-50); Potassium 4.2 mmol/L (3.3-5.1); Sodium 141 mmol/L (135-145); Total Iron Binding Capacity 268 mcg/dL (228-428); Total Protein 7.5 g/dL (6.5-8.0); Triglycerides 87 mg/dL (<150); Unsaturated Iron Binding 224 ug/dL
[2025-03-27 10:41] LABS: Ferritin 287 ng/mL (20-250)
[2025-03-27 10:47] LABS: Appearance Urine Clear; Glucose Urine UA Negative (Negative); PH 5.5 (5.0-9.0); Specific Gravity - Urine 1.025 (1.005-1.025)
[2025-03-27 10:53] LABS: Folate 4.4 ng/mL (> or = 4.0); Vitamin B12 424 pg/mL (200-900)
== END 2025-03-27 08:30 | disposition home or self-care (01) ==
LOC: HO.LAB 08:29
PROVIDERS: Absent Provider Physician Assistant Medical; PCP Internal Medicine; Visit Provider Internal Medicine
DX: Z00.00 Encounter for general adult medical examination without abnormal findings (principal); Z12.5 Encounter for screening for malignant neoplasm of prostate; E78.00 Pure hypercholesterolemia, unspecified; E55.9 Vitamin D deficiency, unspecified; D64.9 Anemia, unspecified; R30.0 Dysuria; E11.9 Type 2 diabetes mellitus without complications; R53.83 Other fatigue; G47.9 Sleep disorder, unspecified; G47.19 Other hypersomnia
CPT/HCPCS: 36415; 80053; 80061; 81003; 82306; 82607; 82728; 82746; 83036; 83090; 83540; 83921; 84153; 84425; 84443; 85025

== ENCOUNTER 2025-03-30 15:46 | Outpatient (AMB) | payer OTHER, SELFPAY ==
--- NOTE | 2025-03-30 16:10 | MHC.PC.OV ---
Vital Signs 03/30/25 16:12 Height 5 ft 7 in Weight 361 lb 4 oz BMI 56.6 BP 120/66 Blood Pressure Location Lt brachial Position Sitting Pulse 73 Pulse Source Pulse Oximeter Temp 97.3 F Temp Source Temporal Artery Scan Pulse Oximetry (%) 97 Oxygen Delivery Method Room Air Intake Visit Reasons: 6 month f/u - see comments Intake Note: Patient is here to follow up on Asthma, OA, Arthalgia. Deputy Court Required: No Belt Sewer: Not Required per policy Accompanied by: Self / Same As Patient Allergies Seasonal Allergies Allergy (Verified 03/30/25 16:35) Unknown Medication List - Last Reconciled 03/30/25 by Bon Odonnell MD albuterol sulfate 90 mcg/actuation (Ventolin HFA) 2 puffs inhalation Q6H PRN 30 days albuterol-budesonide 90-80 mcg/actuation (Airsupra) 2 inhalations inhalation Q4-6H PRN cholecalciferol (vitamin D3) 50 mcg PO DAILY 90 days ferrous sulfate 325 mg PO DAILY 3 months MDD 325mg ipratropium-albuterol 0.5 mg-3 mg(2.5 mg base)/3 mL 3 mL inhalation Q4-6H PRN loratadine 10 mg PO DAILY Tobacco use date assessed: 03/30/25 Dental Screening Dental Screen Date: 09/30/24 HPI 6 month f/u - see comments HPI Details Patient comes in today for his follow-up visit States that he feels okay He denies any headaches or dizziness Denies any chest pains, no shortness of breath No nausea/vomiting, no abdominal pain No change in bowel habits noted Adds that his legs have both been swollen significantly over the past few months and he would like to get something to help relieve his swelling He also needs a couple of his Rx refilled He had his follow-up labs done a few days ago - to discuss his results [facility] Medical History (Updated 03/30/25 @ 16:54 by Bon Odonnell MD) Lymphedema Asthma exacerbation Acute respiratory disease Right knee pain Left knee pain Screening examination for infectious disease Colon cancer screening Upper respiratory infection Positive anti-CCP test Vitamin D deficiency Back pain COPD (chronic obstructive pulmonary disease) (09/17/23) CTS (carpal tunnel syndrome) Seasonal allergies Allergic rhinitis Osteoarthritis of both knees Asthma Obstructive sleep apnea Hypercholesteremia Bursitis of left shoulder Intermittent asthma Morbid obesity with BMI of 50.0-59.9, adult GERD (gastroesophageal reflux disease) Environmental allergies COVID-19 Surgical History History of colonoscopy (~10/21/24) History of right knee surgery Hx of endoscopy [place] teeth extracted Family History Other Family history non-contributory Social History Household Members: Family Housing: House Are you a primary client care consultant to a significant other at home: No Do you presently have visiting nurse or other home services: No 75 years or older and lives alone: No Alcohol intake: current Alcohol intake frequency: holidays/special occasions only Patient Tobacco Use Status: Former Tobacco user Tobacco use type: Cigarette e-Cigarette/Vaping Use: Never Used Second Hand Smoke Exposure: Yes service: No Current occupational status: employed 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 Depression Screening Interpretation: Negative Depression Screening Done: Yes Source: Developed by Drs. Michele Chen, Sima Grewal, Cain Juarez and colleagues, with an educational dalton from [employer]. Thrive Questionnaire Date Thrive assessed: 09/30/24 I am a: Patient What is your living situation today?: I have a steady place to live Within the past 12 months, did the food you bought not last and you didn't have the money to get more?: Never true Within the past 12 months, did you worry whether your food would run out before you got money to buy more?: Never true Do you have trouble paying for medicines?: No Do you have trouble getting transportation to medical appointments?: No Do you have trouble paying your heating and electricity bill?: No Do you have trouble taking care of your child, family member or friend?: No Do you have trouble with day-to-day activities such as bathing, preparing meals, shopping, managing finances, etc.?: No Are you currently unemployed and looking for a job?: No Are you interested in more education?: No Please select the resources that you would like help with: None Currently or been in a relationship where the following occur: No concerns reported THRIVE Score: 0 FAUSTINA-7 AMB Questionnaire FAUSTINA-7 Date FAUSTINA - 7 assessed: 09/30/24 Source: Developed by Drs. Michele Chen, Sima Grewal, Cain Juarez and colleagues, with an educational dalton from [employer]. Review of Systems Const Denies chills, Denies fatigue, Denies fever(s) and Denies headache(s) ENT Denies dysphagia, Denies dizziness, Denies otalgia, Denies headache(s), Denies neck pain, Denies odynophagia and Denies sore throat Card Denies chest pain, Denies rapid heart rate, Denies palpitations and Denies dyspnea Resp Denies chest congestion, Denies cough and Denies dyspnea GI Denies abdominal pain, Denies constipation, Denies dysphagia, Denies heartburn, Denies diarrhea, Denies nausea, Denies odynophagia and Denies vomiting Denies difficulty urinating, Denies dysuria and Denies urinary frequency Musc Denies back pain, Reports arthralgias (in the right knee although this has improved with knee surgery ) and Denies neck pain Skin/Breast Denies rash Neuro Denies dizziness, Denies headache(s) and Denies paresthesias Endo Denies fatigue and Denies palpitations Rajesh/Lymph Details: (+) persistent and increased swelling of both lower legs over the past few months Physical exam (Primary Care) Vital Signs: Last Vital Signs Temp 97.3 F 03/30/25 16:12 Pulse 73 03/30/25 16:12 BP 120/66 03/30/25 16:12 Pulse Ox 97 03/30/25 16:12 Oxygen Delivery Method Room Air 03/30/25 16:12 BMI result Body Mass Index 56.6 Tobacco/Smoking Status: Tobacco use Status Tobacco use date assessed 03/30/25 03/30/25 16:18 Patient Tobacco Use Status Former Tobacco user 03/30/25 16:18 Tobacco use type Cigarette 03/30/25 16:18 e-Cigarette/Vaping Use Never Used 03/30/25 16:18 Depression Screening Interpretation: Negative Thrive Assessment: Date of Thrive Assessment Date Thrive assessed 09/30/24 03/30/25 16:18 Currently or been in a relationship where the following occur: No concerns reported Const General: no acute distress and alert HENMT Ears: TM's normal bilaterally and EAC's normal Throat: Yes posterior oropharynx normal and Yes tonsils normal (no TP congestion) Neck Neck: Yes supple and No lymphadenopathy Thyroid: Thyroid normal Resp Auscultation: clear to auscultation bilaterally, no rales and no wheezes Cardio Rate: regular rate Rhythm: regular rhythm Heart sounds: no murmurs GI Palpation (GI): Soft to palpation and nontender Auscultation: normal bowel sounds General: Yes no CVA tenderness Back/Spine/Pelvis Back: no CVA tenderness Thoracic/Lumbar Spine: No lumbar spinal tenderness Skin Rashes: no rashes Extrem General: No clubbing, No cyanosis and Yes edema (3+ edema over both lower extremities) Right lower extremity: knee Details: tenderness (mild); no swelling Results Reviewed Results Reviewed: Laboratory Tests 03/27/25 03/27/25 09:05 09:08 WBC 9.3 Hgb 13.8 L Hct 44.0 Plt Count 328 Sodium 141 Potassium 4.2 Creatinine 0.90 Estimated GFR > 60 Fasting Glucose 105 H Hemoglobin A1c % 5.9 Calcium 8.7 Iron 44 L TIBC 268 % Saturation 16 AST 22 ALT 16 Triglycerides 87 Cholesterol 154 LDL Cholesterol, Calc 99 HDL Cholesterol 38 L PSA Screen 1.32 Vitamin B12 424 25-OH Vitamin D Total 12.9 L TSH 1.95 Ur Specific Smith 1.025 Urine Protein Negative Urine Glucose (UA) Negative Urine Blood Negative Urine Nitrite Negative Ur Leukocyte Esterase Negative Coding Level of Care Code Est Pt Level 4 (55508) Diagnoses Mild intermittent asthma without complication J45.20 Asthma severity: mild Asthma persistence: intermittent Asthma complication type: uncomplicated Non-seasonal allergic rhinitis, unspecified trigger J30.89 Allergic rhinitis trigger: unspecified Allergic rhinitis seasonality: non-seasonal Primary osteoarthritis of both knees M17.0 Osteoarthritis type: primary Lymphedema I89.0 Rheumatoid arthritis, seropositive M05.9 Obstructive sleep apnea G47.33 Gastroesophageal reflux disease without esophagitis K21.9 Esophagitis presence: without esophagitis Vitamin D deficiency E55.9 Morbid obesity with BMI of 50.0-59.9, adult E66.01; Z68.43 Assessment & Plan Assessment & Plan (1) Asthma: Code(s): J45.909 - Unspecified asthma, uncomplicated Category: Medical Qualifiers: Asthma severity: mild Asthma persistence: intermittent Asthma complication type: uncomplicated Qualified Code(s): J45.20 - Mild intermittent asthma, uncomplicated Plan: Controlled Continue Airsupra 2 inhalations Q 4 to 6 hours PRN (2) Allergic rhinitis: Code(s): J30.9 - Allergic rhinitis, unspecified Category: Medical Qualifiers: Allergic rhinitis trigger: unspecified Allergic rhinitis seasonality: non-seasonal Qualified Code(s): J30.89 - Other allergic rhinitis Plan: Continue Loratadine 10 mg QD PRN Patient states that his allergies have improved significantly since he started receiving allergy injections regularly - goes to [facility] in [place], [place] (3) Osteoarthritis of both knees: Code(s): M17.0 - Bilateral primary osteoarthritis of knee Category: Medical Qualifiers: Osteoarthritis type: primary Qualified Code(s): M17.0 - Bilateral primary osteoarthritis of knee Plan: He is S/P TKA of the right knee on 05/16/2024, with significant improvement of his knee pain Follow up with orthopedics as scheduled (4) Lymphedema: Code(s): I89.0 - Lymphedema, not elsewhere classified Category: Medical Plan: Patient is reminded to try to keep his lower extremities elevated as often as he can throughout the day to help manage his edema Will start him on Furosemide 20 mg Q AM Will also refer him to vascular surgery for further evaluation and management (5) Rheumatoid arthritis, seropositive: Code(s): M05.9 - Rheumatoid arthritis with rheumatoid factor, unspecified Category: Medical Plan: He was started on a trial of Methotrexate 15 mg once a week on Saturdays last year but he did not experience any significant improvement of his symptoms and Rx was eventually discontinued by rheumatology He was advised by rheumatology at his last follow up visit in May 2024 that he does not meet criteria for RA and it is likely that his knee pain was osteoarthritic in origin. However given his weakly positive CCP, they will follow him up yearly as studies have shown that antibodies for rheumatoid arthritis appear up to 5 years prior to development of symptoms (although this was specifically with rheumatoid factor) (6) Obstructive sleep apnea: Comment: no CPAP use, unable to tolerate mask Code(s): G47.33 - Obstructive sleep apnea (adult) (pediatric) Category: Medical Plan: Continue using his CPAP device when sleeping at night daily (7) GERD (gastroesophageal reflux disease): Code(s): K21.9 - Gastro-esophageal reflux disease without esophagitis Category: Medical Qualifiers: Esophagitis presence: without esophagitis Qualified Code(s): K21.9 - Gastro-esophageal reflux disease without esophagitis Plan: Dietary restrictions reinforced (8) Vitamin D deficiency: Code(s): E55.9 - Vitamin D deficiency, unspecified Category: Medical Plan: Results of his labs done a few days ago reviewed and discussed with patient - he is advised that his Vitamin D level is still low on his recent labs Continue Vitamin D3 2000 units QD (9) Morbid obesity with BMI of 50.0-59.9, adult: Code(s): E66.01 - Morbid (severe) obesity due to excess calories; Z68.43 - Body mass index [BMI] 50.0-59.9, adult Category: Medical Plan: Reinforced diet/exercise as tolerated/lose weight Plan To return in 6 months for his next annual physical examination Patient is advised to get his follow-up labs done just before he returns in 6 months for his next annual physical examination Orders: Orders Comprehensive [place]. Panel Fast 6 Months E78.00 - Pure hypercholesterolemia, unspecified, Z00.00 - Encounter for general adult medical examination without abnormal findings Lipid Panel 6 Months E78.00 - Pure hypercholesterolemia, unspecified, Z00.00 - Encounter for general adult medical examination without abnormal findings UA CC w/rflx Micro + Cult 6 Months R30.0 - Dysuria, Z00.00 - Encounter for general adult medical examination without abnormal findings Hemoglobin A1c 6 Months R73.01 - Impaired fasting glucose Complete Blood Count Auto Diff 6 Months D64.9 - Anemia, unspecified, Z00.00 - Encounter for general adult medical examination without abnormal findings TSH reflex Free T4 6 Months E78.00 - Pure hypercholesterolemia, unspecified, Z00.00 - Encounter for general adult medical examination without abnormal findings Vitamin D 25-OH Total 6 Months E55.9 - Vitamin D deficiency, unspecified, Z00.00 - Encounter for general adult medical examination without abnormal findings Referrals Vascular Surgery Referral I89.0 - Lymphedema, not elsewhere classified Medications: New cholecalciferol (vitamin D3) 50 mcg PO DAILY 90 caps 3RF 90 days E55.9 - Vitamin D deficiency, unspecified furosemide (Lasix) 40 mg PO QAM PRN 90 tabs 1RF edema 90 days Discontinued cholecalciferol (vitamin D3) Discontinued Reason: Duplicate 50 mcg PO DAILY 90 days 90 caps 3RF E55.9 - Vitamin D deficiency, unspecified
[2025-03-30 16:12] VITALS: BP 120/66; PULSE 73; TEMP 36.3; O2SAT 97; BMI 56.6
--- OUTSIDE RECORDS SUMMARY | 2025-03-30 17:45 | XMS_ITS | Encounter Summary ---
Author Organization [facility] Address [address] [place] [address] Phone Care Team Providers Care Channeling Machine Runner Name Role Phone Pcp, Unknown Primary Care Provider Unavailabl e Encounter Details Date Type Department Care Team (Late st Contact Info) Description 09/18/2023 Procedure Pass [facility] [place], Ct Scan - [address] [address] Social History Tobacco Use Types Packs/Day Years [...] on filedocumented in this encounter Care Teams Channeling Machine Runner Relationship Specialty Start Date End Date Pcp, Unknown PCP - General 03/30/23 documented as of this encounter Additional Source Comments The information contained in this document represents components of the legal health record. It is not the complete legal health record.[facility]
--- OUTSIDE RECORDS SUMMARY | 2025-03-30 17:45 | XMS_ITS | Encounter Summary ---
Author Organization [facility] Address [address] [place] [address] [address] [place] [address] Phone Care Team Providers Care Decision Analyst Name Role Phone Pcp, Unknown Primary Care Provider Unavailabl e Encounter Details Date Type Department Care Team (Late st Contact Info) Description 08/26/2024 Ancillary Orders [facility], X-Ray - [facility] [address] [place] [address] Irma Apodaca, [facility] [address] [facility], [facility] [address] [place] [address] [email or web address] Shortness of breath (Primary Dx) Social History Tobacco Use Types Packs/Day Years [...] on file documented as of this encounter Results * XR CHEST PA AND LATERAL 2 VIEWS (08/26/2024 4:06 PM EST) Anatomical Region Laterality Modality Chest Computed Radiogr aphy 08/26/2024 4:10 PM EST Impressions 08/26/2024 4:10 PM EST 1. No specific radiographic evidence for pneumonia or edema. 2. No pneumothorax. Narrative 08/26/2024 4:10 PM EST XR CHEST PA AND LATERAL 2 VIEWS Referring clinician's provided indication for this examination in [facility]: Pain COMPARISON: Prior chest x-ray dated 09/17/2023 FINDINGS: Devices/Tubes/Lines: None. Lungs: No specific radiographic evidence for pneumonia or edema. Pleura: No pleural effusion or pneumothorax. Heart/Mediastinum: The heart size is normal. Bones/Soft Tissues: No displaced rib fracture. Procedure Note Kike Flores MD - 08/26/2024 XR CHEST PA AND LATERAL 2 VIEWS Referring clinician's provided indication for this examination in [facility]:Pain COMPARISON: Prior chest x-ray dated 09/17/2023 FINDINGS: Devices/Tubes/Lines: None. Lungs: No specific radiographic evidence for pneumonia or edema. Pleura: No pleural effusion or pneumothorax. Heart/Mediastinum: The heart size is normal. Bones/Soft Tissues: No displaced rib fracture. IMPRESSION: 1. No specific radiographic evidence for pneumonia or edema. 2. No pneumothorax. Irma Apodaca DNP IMG XR CHEST Final Resu lt documented in this encounter Visit Diagnoses Diagnosis Shortness of breath- Primary Shortness of breath documented in this encounter Care Teams Decision Analyst Relationship Specialty Start Date End Date Pcp, Unknown PCP - General 03/30/23 documented as of this encounter Additional Source Comments The information contained in this document represents components of the legal health record. It is not the complete legal health record.[facility]
--- OUTSIDE RECORDS SUMMARY | 2025-03-30 17:46 | XMS_ITS | Clinical Summary ---
Author Organization [facility] Address [address] [place] [id number] Phone Care Team Providers Care Telesales Representative Name Role Phone Pcp, Unknown Primary Care Provider Unavailabl e Allergies No known active allergies Medications No known medications Social History Tobacco Use Types Packs/Day Years [...] on file Sexual Orientation Not on file Last Filed Vital Signs Vital Sign Reading Time Taken Comments Blood Pressure 107/66 09/18/2023 5:19 AM EST Pulse 67 09/18/2023 5:19 AM EST Temperature 36.5 C (97.7 F) 09/18/2023 5:19 AM EST Respiratory Rate 20 09/18/2023 5:19 AM EST Oxygen Saturation 97% 09/18/2023 5:19 AM EST Inhaled Oxygen Concentration - - Weight 149.7 kg (330 lb) 09/17/2023 6:05 PM EST Height 170.2 cm (5' 7 ) 09/17/2023 6:05 PM EST Body Mass Index 51.69 09/17/2023 6:05 PM EST Plan of Treatment Not on file Medical Devices Not on file Insurance [facility] Care Teams Telesales Representative Relationship Specialty Start Date End Date Pcp, Unknown PCP - General 03/30/23 Additional Source Comments The information contained in this document represents components of the legal health record. It is not the complete legal health record.[facility]
--- OUTSIDE RECORDS SUMMARY | 2025-03-30 17:46 | XMS_ITS | Patient Health Record ---
Author Organization [facility] Address [address] [place] [address] Care Team Providers Care System Admin Name Role Phone SOTERO RODRIGUEZ Unavailable [phone] Allergies No Known Allergies Reason For Referral No Information Medications Medication SIG (Take, Route, Frequency, Duration) Notes Start Date End Date Status Tylenol Active Mounjaro 5 MG/0.5ML as directed Subcutan eous weekly; Duration: 30 days Active predniSONE 20 MG 1 tablet Orally Once a day Active Albuterol Sulfate HFA 108 (90 Base) MCG/ACT 1 puff as needed Inhalation every 4 hrs Active Nasal [place] 0.05 % 2 sprays in each nos [...] Status Risk Notes Problem Morbid obesity (disorder) (735615721) Morbid (severe) obesity due to excess calories (E66.01) Active confirmed Problem Prediabetes (723423184) Prediabetes (R73.03) Active confirmed Problem Obese class I (finding) (849180138339063) Obesity (BMI 30.0-34.9) (E66.9) Active confirmed Problem Obstructive sleep apnea syndrome (51276749) IRLANDA (obstructive sleep apnea) (G47.33) Active confirmed Problem Body mass index 40+ - morbidly obese (133371332) Body mass index [BMI] 50.0-59.9, adult (Z68.43) Active confirmed Problem Body mass index 30+ - obesity (finding) (089116921) Body mass index [BMI] 60.0-69.9, adult (Z68.44) Active confirmed Problem Hyperinsulinemia (32680039) Hyperinsulinemia (E16.1) Active confirmed Problem Body mass index 40+ - severely obese (652696778) BMI 45.0-49.9, adult (Z68.42) Active confirmed Plan Of Treatment Pending Test Test Name Order Date EKG 02/22/2021 HEMOGLOBIN A1C 09/28/2021 Insulin Level 09/28/2021 Insurance Providers Payer Name Payer Address Payer Phone Subscriber Number Group Number Insured Name Patient Relationship to Insured Coverage Start Date Coverage End Date [facility] [address] [place] [address] [id number] Carl Duke Self - patient is the insured 2 Medications Administered Medication Instructions Date of Administration Dosage Notes MICC B12 INJECTION 09/28/2021 1 mL MICC B12 INJECTION 10/26/2021 MICC B12 INJECTION 12/01/2021 lot # [id number] MICC B12 INJECTION 01/12/2022 1 MICC B12 INJECTION 02/15/2022 1 MICC B12 INJECTION 03/27/2022 1 MICC B12 INJECTION 04/27/2022 MICC B12 INJECTION 06/08/2022 MICC B12 INJECTION 07/18/2022 MICC B12 INJECTION 09/07/2022 MICC B12 INJECTION 10/05/2022 Medical (General) History Medical History History ICD Code asthma seasonal allergies gallstones
== END 2025-03-30 17:01 | disposition home or self-care (01) ==
LOC: HO.HMCH 15:47
PROVIDERS: PCP Internal Medicine; Visit Provider Internal Medicine
DX: J45.20 Mild intermittent asthma, uncomplicated (principal); M05.9 Rheumatoid arthritis with rheumatoid factor, unspecified; E66.01 Morbid (severe) obesity due to excess calories; Z68.43 Body mass index [BMI] 50.0-59.9, adult; J30.89 Other allergic rhinitis; M17.0 Bilateral primary osteoarthritis of knee; I89.0 Lymphedema, not elsewhere classified; G47.33 Obstructive sleep apnea (adult) (pediatric); K21.9 Gastro-esophageal reflux disease without esophagitis; E55.9 Vitamin D deficiency, unspecified

== ENCOUNTER → 2025-05-19 08:02 | Outpatient (REF) | payer OTHER, SELFPAY ==
--- OUTSIDE RECORDS SUMMARY | 2025-05-19 08:08 | XMS_ITS | Encounter Summary ---
Author Organization [facility] Address [address] [place] [address] [address] [place] [address] Phone Care Team Providers Care Sheep Or Calf Grader Name Role Phone Pcp, Unknown Primary Care Provider Unavailabl e Encounter Details Date Type Department Care Team (Late st Contact Info) Description 08/26/2024 Ancillary Orders , X-Ray - [facility] [address] [place] [address] Irma Apodaca, [facility] [address] [facility], [facility] [address] [place] [address] [email or web address] Shortness of breath (Primary Dx) Social History [...] clinician's provided indication for this examination in [facility]: Pain COMPARISON: Prior chest x-ray dated 09/17/2023 FINDINGS: Devices/Tubes/Lines: None. Lungs: No specific radiographic evidence for pneumonia or edema. Pleura: No pleural effusion or pneumothorax. Heart/Mediastinum: The heart size is normal. Bones/Soft Tissues: No displaced rib fracture. Procedure Note Kike Flores MD - 08/26/2024 XR CHEST PA AND LATERAL 2 VIEWS Referring clinician's provided indication for this examination in [facility]:Pain COMPARISON: Prior chest x-ray dated 09/17/2023 FINDINGS: [...] breath documented in this encounter Care Teams Sheep Or Calf Grader Relationship Specialty Start Date End Date Pcp, Unknown PCP - General 03/30/23 documented as of this encounter Additional Source Comments The information contained in this document represents components of the legal health record. It is not the complete legal health record.[facility]
--- OUTSIDE RECORDS SUMMARY | 2025-05-19 08:08 | XMS_ITS | Encounter Summary ---
Author Organization [facility] Address [address] [place] [phone] Phone Care Team Providers Care Associate Scientist Name Role Phone Pcp, Unknown Primary Care Provider Unavailabl e Encounter Details Date Type Department Care Team (Late st Contact Info) Description 09/18/2023 Procedure Pass [facility], Ct Scan - [address] [address] Social History Tobacco Use Types Packs/Day Years [...] on filedocumented in this encounter Care Teams Associate Scientist Relationship Specialty Start Date End Date Pcp, Unknown PCP - General 03/30/23 documented as of this encounter Additional Source Comments The information contained in this document represents components of the legal health record. It is not the complete legal health record.[facility]
--- OUTSIDE RECORDS SUMMARY | 2025-05-19 08:09 | XMS_ITS | Clinical Summary ---
Author Organization [facility] Address [address] [place] [phone] Phone Care Team Providers Care Research Laboratory Specialist Name Role Phone Pcp, Unknown Primary Care [...] file Medical Devices Not on file [facility] Care Teams Research Laboratory Specialist Relationship Specialty Start Date End Date Pcp, Unknown PCP - General 03/30/23 Additional Source Comments The information contained in this document represents components of the legal health record. It is not the complete legal health record.[facility]
--- OUTSIDE RECORDS SUMMARY | 2025-05-19 08:09 | XMS_ITS | Patient Health Record ---
[facility] Address [address] [place] [address] Care Team Providers Care Director Emergency Services Name Role Phone SOTERO RODRIGUEZ Unavailable [phone] Allergies No Known Allergies Reason For Referral No Information Medications Medication SIG (Take, Route, Frequency, Duration) Notes Start Date End Date Status Tylenol Active Mounjaro 5 MG/0.5ML as directed Subcutan eous weekly; Duration: 30 days Active predniSONE 20 MG 1 tablet Orally Once a day Active Albuterol Sulfate HFA 108 (90 Base) MCG/ACT 1 puff as needed Inhalation every 4 hrs Active Nasal [place]an[place] 0.05 % 2 sprays in each nos [...] Status Risk Notes Problem Morbid obesity (disorder) (008958794) Morbid (severe) obesity due to excess calories (E66.01) Active confirmed Problem Prediabetes (976767928) Prediabetes (R73.03) Active confirmed Problem Obese class I (finding) (077100093127540) Obesity (BMI 30.0-34.9) (E66.9) Active confirmed Problem Obstructive sleep apnea syndrome (83698537) IRLANDA (obstructive sleep apnea) (G47.33) Active confirmed Problem Body mass index 40+ - morbidly obese (643551682) Body mass index [BMI] 50.0-59.9, adult (Z68.43) Active confirmed Problem Body mass index 30+ - obesity (finding) (259472047) Body mass index [BMI] 60.0-69.9, adult (Z68.44) Active confirmed Problem Hyperinsulinemia (95382988) Hyperinsulinemia (E16.1) Active confirmed Problem Body mass index 40+ - severely obese (807668287) BMI 45.0-49.9, adult (Z68.42) Active confirmed Plan Of Treatment Pending Test Test Name Order Date EKG 02/22/2021 HEMOGLOBIN A1C 09/28/2021 Insulin Level 09/28/2021 Insurance Providers Payer Name Payer Address Payer Phone Subscriber Number Group Number Insured Name Patient Relationship to Insured Coverage Start Date Coverage End Date [facility] [address] [place] [address] [id number] Carl Duke Self - patient is the insured 2 Medications Administered Medication Instructions Date of Administration Dosage Notes MICC B12 INJECTION 09/28/2021 1 mL MICC B12 INJECTION 10/26/2021 MICC B12 INJECTION 12/01/2021 lot # [id number] MICC B12 INJECTION 01/12/2022 1 MICC B12 INJECTION 02/15/2022 1 MICC B12 INJECTION 03/27/2022 1 MICC B12 INJECTION 04/27/2022 MICC B12 INJECTION 06/08/2022 MICC B12 INJECTION 07/18/2022 MICC B12 INJECTION 09/07/2022 MICC B12 INJECTION 10/05/2022 Medical (General) History Medical History History ICD Code asthma seasonal allergies gallstones
== END ==
LOC: HO.SL 08:02
PROVIDERS: PCP Internal Medicine; Visit Provider Physician Assistant Medical
DX: G47.19 Other hypersomnia (principal)
CPT/HCPCS: 95806

== ENCOUNTER 2025-05-21 15:32 | Outpatient (AMB) | payer OTHER, SELFPAY ==
--- NOTE | 2025-05-21 15:35 | A.OFFVIS_ITS ---
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 Patient has had leg swelling for about a year . He had knee surgery on his right leg. No pain, swelling, cramping or numbness. 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 The swelling got worse after knee surgery for a torn meniscus last y ear, although it is unclear if it was present before the surgery. The patient reports that the swelling affects both legs from the knees down and has improved with the use of diuretics, as clothing and shoes fit better. The patient denies smoking and diabetes, and his occupation involves significant physical activity, including climbing ladders and fieldwork, which suggests he is not sedentary. 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 It is noted more so in right leg. Patient denies any previous venous surgery or injections. Patient denies any history of DVT/ PE. Patient denies any history of phlebitis. Trial of compression includes - [id number] but unable to wear. They now present for vascular evaluation regarding their varicose veins. [facility] Medical History Lymphedema Asthma exacerbation Acute respiratory disease Right knee pain Left knee pain Screening examination for infectious disease Colon cancer screening Upper respiratory infection Positive anti-CCP test Vitamin D deficiency Back pain COPD (chronic obstructive pulmonary disease) (09/17/23) CTS (carpal tunnel syndrome) Seasonal allergies Allergic rhinitis Osteoarthritis of both knees Asthma Obstructive sleep apnea Hypercholesteremia Bursitis of left shoulder Intermittent asthma Morbid obesity with BMI of 50.0-59.9, adult GERD (gastroesophageal reflux disease) Environmental allergies COVID-19 Surgical History History of colonoscopy (~10/21/24) History of right knee surgery Hx of endoscopy [place] teeth extracted Family History Other Family history non-contributory Social History Household Members: Family Housing: House Are you a primary respiratory care practitioner to a significant other at home: No Do you presently have visiting nurse or other home services: No 75 years or older and lives alone: No Alcohol intake: current Alcohol intake frequency: holidays/special occasions only Patient Tobacco Use Status: Former Tobacco user Tobacco use type: Cigarette e-Cigarette/Vaping Use: Never Used Second Hand Smoke Exposure: Yes service: No Current occupational status: employed 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, 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, 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 Current occupational exposures/hazards: No Cognitive needs: No Hearing needs: No Vision needs: Yes Review of Systems Const Reports as per HPI ENT Reports no additional complaints Card Denies chest pain, Denies chest pain at rest and Denies chest pain with activity Resp Denies chest congestion and Denies cough GI Reports no additional complaints Musc Details: pain over varicosities, aching of lower extremities, swelling, cramping, heaviness and tiredness, itching Denies abnormal gait Skin/Breast Reports pruritus and Denies wounds Neuro Reports no additional complaints and Denies abnormal gait Psych Denies no additional complaints Physical Exam Const General: cooperative, healthy appearing and comfortable Orientation/consciousness: oriented to person, oriented to place and oriented to time Neck Carotids: no bruits Chest Chest palpation & inspection: normal inspection of the chest and normal palpation of entire chest wall Resp Effort & Inspection: normal respiratory effort and able to speak in complete sentences Cardio Rate: regular rate Heart sounds: S1 normal heart sound present and S2 normal heart sound present Peripheral pulses: Peripheral pulses 2+ throughout GI Inspection: Yes normal to inspection Skin Other: +2 edema, also evidence of hyperkeratosis and lymphedema CEAP Classification C4 - skin color changes Ep - Etiology Primary As - superficial veins P - reflux General skin exam: dry skin Neuro General: oriented to person, oriented to place and oriented to time Extrem Right lower extremity: full ROM, normal capillary refill and edema Left lower extremity: full ROM, normal capillary refill and edema Psych Mental Status: mental status grossly normal Assessment & Plan Assessment & Plan (1) Varicose veins of right lower extremity with inflammation: Code(s): I83.11 - Varicose veins of right lower extremity with inflammation Category: Medical Plan: In short, the patient has evidence of venous insufficiency. I have discussed the pathophysiology with the patient. In addition I have provided informational material regarding venous disease to the patient. We have discussed conservative measures including compression, elevation, and exercise. I have also provided a handout regarding appropriate use of compression st ockings and where to purchase good compression stockings as well. I have taken the liberty of ordering venous insufficiency testing with the patient. They will follow up with me after testing. The patient had an opportunity to ask questions regarding the treatment plan. All questions were answered. Imaging studies, laboratory studies and physical exam results were discussed and reviewed in detail. No major barriers to understanding were identified. The patient expressed understanding and agreement with the above treatment plan. The patient is aware they should contact our office by phone for worsening of the current condition or the appearance of new symptoms. Thank you for allowing me to participate in the vascular care of this patient. If you have any questions or concerns regarding the treatment for the above condition please do not hesitate to contact me. The office telephone contact is [phone]. This note is constructed using voice recognition software. While every effort has been made to ensure accuracy, polishing machine operator helper errors may have been included. Thank you for allowing me to participate in the care of your patient. Yours sincerely, Fredis Holder MD, FACS, R.P.V.I. (2) Lymphedema: Code(s): I89.0 - Lymphedema, not elsewhere classified Category: Medical Plan: Patient clearly has stigmata of lymphedema. We will workup venous disease in addition we will start the process of evaluating for lymphedema pumps. Orders: Orders US venous duplex LE BI Today I83.11 - Varicose veins of right lower extremity with inflammation Coding Level of Care Code New Pt Level 4 (66658) Complex EM visit Add On G2211 Diagnoses Varicose veins of right lower extremity with inflammation I83.11 Lymphedema I89.0
--- OUTSIDE RECORDS SUMMARY | 2025-05-21 19:21 | XMS_ITS | Patient Health Record ---
[facility] Address [address] [place] [address] Care Team Providers Care Program Medical Director Name Role Phone SOTERO RODRIGUEZ Unavailable [phone] Allergies No Known Allergies Reason For Referral No Information Medications Medication SIG (Take, Route, Frequency, Duration) Notes Start Date End Date Status Tylenol Active Mounjaro 5 MG/0.5ML as directed Subcutan eous weekly; Duration: 30 days Active predniSONE 20 MG 1 tablet Orally Once a day Active Albuterol Sulfate HFA 108 (90 Base) MCG/ACT 1 puff as needed Inhalation every 4 hrs Active Nasal [place] 0.05 % 2 sprays in each nos [...] Status Risk Notes Problem Morbid obesity (disorder) (186490966) Morbid (severe) obesity due to excess calories (E66.01) Active confirmed Problem Prediabetes (458257839) Prediabetes (R73.03) Active confirmed Problem Obese class I (finding) (314427070224256) Obesity (BMI 30.0-34.9) (E66.9) Active confirmed Problem Obstructive sleep apnea syndrome (97577365) IRLANDA (obstructive sleep apnea) (G47.33) Active confirmed Problem Body mass index 40+ - morbidly obese (117666458) Body mass index [BMI] 50.0-59.9, adult (Z68.43) Active confirmed Problem Body mass index 30+ - obesity (finding) (912831555) Body mass index [BMI] 60.0-69.9, adult (Z68.44) Active confirmed Problem Hyperinsulinemia (73928183) Hyperinsulinemia (E16.1) Active confirmed Problem Body mass index 40+ - severely obese (709963042) BMI 45.0-49.9, adult (Z68.42) Active confirmed Plan Of Treatment Pending Test Test Name Order Date EKG 02/22/2021 HEMOGLOBIN A1C 09/28/2021 Insulin Level 09/28/2021 Insurance Providers Payer Name Payer Address Payer Phone Subscriber Number Group Number Insured Name Patient Relationship to Insured Coverage Start Date Coverage End Date [facility] [address] [place] [address] [id number] Carl Duke Self - patient is the insured 2 Medications Administered Medication Instructions Date of Administration Dosage Notes MICC B12 INJECTION 09/28/2021 1 mL MICC B12 INJECTION 10/26/2021 MICC B12 INJECTION 12/01/2021 lot # [id number] MICC B12 INJECTION 01/12/2022 1 MICC B12 INJECTION 02/15/2022 1 MICC B12 INJECTION 03/27/2022 1 MICC B12 INJECTION 04/27/2022 MICC B12 INJECTION 06/08/2022 MICC B12 INJECTION 07/18/2022 MICC B12 INJECTION 09/07/2022 MICC B12 INJECTION 10/05/2022 Medical (General) History Medical History History ICD Code asthma seasonal allergies gallstones
--- OUTSIDE RECORDS SUMMARY | 2025-05-21 19:21 | XMS_ITS | Encounter Summary ---
Author Organization [facility] Address [address] [place] [address] [address] [place] [address] Phone Care Team Providers Care Android Architect Name Role Phone Pcp, Unknown Primary Care Provider Unavailabl e Encounter Details Date Type Department Care Team (Late st Contact Info) Description 08/26/2024 Ancillary Orders [facility], X-Ray - [facility] [address] [place] [address] Irma Apodaca, [facility] [address] [facility], [facility] [address] [place] [address] [email or web address] Shortness of breath (Primary Dx) Social History [...] clinician's provided indication for this examination in [facility]: Pain COMPARISON: Prior chest x-ray dated 09/17/2023 FINDINGS: Devices/Tubes/Lines: None. Lungs: No specific radiographic evidence for pneumonia or edema. Pleura: No pleural effusion or pneumothorax. Heart/Mediastinum: The heart size is normal. Bones/Soft Tissues: No displaced rib fracture. Procedure Note Kike Flores MD - 08/26/2024 XR CHEST PA AND LATERAL 2 VIEWS Referring clinician's provided indication for this examination in [facility]:Pain COMPARISON: Prior chest x-ray dated 09/17/2023 [...] breath documented in this encounter Care Teams Android Architect Relationship Specialty Start Date End Date Pcp, Unknown PCP - General 03/30/23 documented as of this encounter Additional Source Comments The information contained in this document represents components of the legal health record. It is not the complete legal health record.[facility]
--- OUTSIDE RECORDS SUMMARY | 2025-05-21 19:21 | XMS_ITS | Clinical Summary ---
Author Organization [facility] Address [address] [place] [address] Phone Care Team Providers Care Head Chef Name Role Phone Pcp, Unknown Primary Care [...] file Medical Devices Not on file [facility] Care Teams Head Chef Relationship Specialty Start Date End Date Pcp, Unknown PCP - General 03/30/23 Additional Source Comments The information contained in this document represents components of the legal health record. It is not the complete legal health record.[facility]
--- OUTSIDE RECORDS SUMMARY | 2025-05-21 19:21 | XMS_ITS | Encounter Summary ---
Author Organization [facility] Address [address] [place] [phone] Phone Care Team Providers Care Alum Plant Operator Name Role Phone Pcp, Unknown Primary Care Provider Unavailabl e Encounter Details Date Type Department Care Team (Late st Contact Info) Description 09/18/2023 Procedure Pass [facility], Ct Scan - [address] [address] Social History Tobacco Use Types Packs/Day Years [...] on filedocumented in this encounter Care Teams Alum Plant Operator Relationship Specialty Start Date End Date Pcp, Unknown PCP - General 03/30/23 documented as of this encounter Additional Source Comments The information contained in this document represents components of the legal health record. It is not the complete legal health record.[facility]
== END 2025-05-21 16:16 | disposition home or self-care (01) ==
LOC: HO.HVS 15:33
PROVIDERS: PCP Internal Medicine; Visit Provider Surgery Vascular Surgery
DX: I83.11 Varicose veins of right lower extremity with inflammation (principal); I89.0 Lymphedema, not elsewhere classified
CPT/HCPCS: 99204; G2211

== ENCOUNTER 2025-06-23 08:20 | Outpatient (AMB) | payer OTHER, SELFPAY ==
--- NOTE | 2025-06-23 08:30 | A.OFFVIS_ITS ---
Vital Signs 06/23/25 08:34 Height 5 ft 7 in Weight 360 lb 2 oz BMI 56.4 BP 122/78 Blood Pressure Location Rt brachial Position Sitting Pulse 64 Pulse Source Pulse Oximeter Pulse Oximetry (%) 98 Oxygen Delivery Method Room Air Intake Visit Reasons: Follow up (CONF.) Intake Note: Patient presents follow up IRLANDA. Labs/HST in chart(AHI-84, SAMMY-57%. Urgent Titration study). Accompanied by: Self / Same As Patient Allergies Seasonal Allergies Allergy (Verified 07/23/25 08:40) Unknown HPI Comments Details: 54 year old male patient presents for an evaluation of sleep apnea and review of HST. HST reviewed with pt today AHI is 84, and Oxygen nadirs to 54%, he needs an urgent titration with a full face mask. 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 He is a light sleeper and wakes up easily with the slightest distractions.He had a HST c/w severe [place] many years ago, however unable to keep up with the management of cpap use and now he is having trouble breathing at night, will stop breathing, gasps for air, his sleep study was done over 10 years ago. He goes to bed at midnight to 4am, takes melatonin 5-10mg and sleeps for 4 hours.He goes to the bathroom 2x a night and has fragmented sleep continuously. His feet twitch at night especially when on his feet for prolonged periods. He is taking lasix for bilateral edema, being followed by endovascular surgeon for varicosities. He has morning headaches once a month due to lack of sleep. Denies grinding his teeth and clenching his jaws. Memory is stable. His mood fluctuates, he is irritable due to demands at work. His diet is okay, would like to reduce weight, he was on a GLP 1 agonist, monjarou however insurance changed and unable to continue. He is not a smoker, drinks alcohol rarely. Denies MJ edibles. [facility] Medical History Lymphedema Asthma exacerbation Acute respiratory disease Right knee pain Left knee pain Screening examination for infectious disease Colon cancer screening Upper respiratory infection Positive anti-CCP test Vitamin D deficiency Back pain COPD (chronic obstructive pulmonary disease) (09/17/23) CTS (carpal tunnel syndrome) Seasonal allergies Allergic rhinitis Osteoarthritis of both knees Asthma Obstructive sleep apnea Hypercholesteremia Bursitis of left shoulder Intermittent asthma Morbid obesity with BMI of 50.0-59.9, adult GERD (gastroesophageal reflux disease) Environmental allergies COVID-19 Surgical History History of colonoscopy (~10/21/24) History of right knee surgery Hx of endoscopy [place] teeth extracted Family History Other Family history non-contributory Social History Household Members: Family Housing: House Are you a primary healthcare economics manager to a significant other at home: No Do you presently have visiting nurse or other home services: No 75 years or older and lives alone: No Alcohol intake: current Alcohol intake frequency: holidays/special occasions only Patient Tobacco Use Status: Former Tobacco user Tobacco use type: Cigarette e-Cigarette/Vaping Use: Never Used Second Hand Smoke Exposure: Yes service: No Current occupational status: employed 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, 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, 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 Current occupational exposures/hazards: No Cognitive needs: No Hearing needs: No Vision needs: Yes Physical Exam Vital Signs: Last Vital Signs Pulse 64 06/23/25 08:34 BP 122/78 06/23/25 08:34 Pulse Ox 98 06/23/25 08:34 Oxygen Delivery Method Room Air 06/23/25 08:34 BMI result Body Mass Index 56.4 obese BMI is 56 Const General: cooperative and no acute distress Nutritional Appearance: obese (BMI is 56) Orientation/consciousness: patient oriented x3 HEENT Face and sinus: Yes face symmetric Throat: Yes other ([place] score 3) Eyes Pupils: Equal, round and reactive pupils present Neck Neck: Yes full ROM Resp Effort & Inspection: normal respiratory effort and able to speak in complete sentences Neuro General: patient oriented x3 and moves all extremities Cranial nerves: Yes Facial sensation intact/muscles of mastication intact, Yes Equal, round and reactive pupils present, Yes Normal accommodation reflex present, Yes Normal facial strength present, Yes Midline tongue present, Yes Ability to bilaterally rotate head present and Yes Ability to bilaterally elevate shoulders present Cognition (Neuro): normal cognition Gait exam (Neuro): Normal gait present Motor exam (neuro): 5/5 motor strength present throughout and Normal motor muscle tone present throughout Psych Appearance: grossly normal Speech and movement: Normal speech and movement present Affect: Anxious affect present Thought process: Normal thought process present Thought content: Normal thought content present Insight: Good insight present (Psych) Judgement: Good judgement present (Psych) Results Reviewed Results Reviewed: HST reviewed with pt today AHI is 84, and Oxygen nadirs to 54%, he needs an urgent titration with a full face mask. Assessment & Plan Assessment & Plan (1) Obstructive sleep apnea: Comment: no CPAP use, unable to tolerate mask Code(s): G47.33 - Obstructive sleep apnea (adult) (pediatric) Category: Medical (2) Excessive daytime sleepiness: Code(s): G47.19 - Other hypersomnia Category: Medical (3) Loud snoring: Code(s): R06.83 - Snoring Category: Medical (4) RLS (restless legs syndrome): Code(s): G25.81 - Restless legs syndrome Category: Medical (5) Morbid obesity with BMI of 50.0-59.9, adult: Code(s): E66.01 - Morbid (severe) obesity due to excess calories; Z68.43 - Body mass index [BMI] 50.0-59.9, adult Category: Medical Plan HST reviewed with pt today, will send him for urgent titration and full face mask to start and monitor therapy and compliance on cpap. RLS will monitor as pt has bilateral twitching of the feet which cause arousals. Lymphedema? RLS? PLMD? Morbid obesity BMI is 56 and pt would like to consult with weight management. Labs to r/o deficiencies. Ferritin TSH, CBC, CMP. F/U in 3 months. Orders: Orders RT PSG in-lab sleep titration 06/23/25 G47.33 - Obstructive sleep apnea (adult) (pediatric) Referrals Medical Weight Management Referral E66.01 - Morbid (severe) obesity due to excess calories Patient Instructions: Sleep Hygiene provided: set a scheduled bedtime and wake time to help regulate the circadian rhythm and balance the release of pituitary hormones. Sleep in a dark room, temperatures below 68 degrees, and no devices n bed. Limit caffeinated products 6 hours prior to bed, and limit fluids 2-4 hours prior to bed. Gentle night yoga, diffusing essential oils, and playing soft music can be relaxing. Coding Level of Care Code Est Pt Level 4 (83479) Diagnoses Obstructive sleep apnea G47.33 Excessive daytime sleepiness G47.19 Loud snoring R06.83 RLS (restless legs syndrome) G25.81 Morbid obesity with BMI of 50.0-59.9, adult E66.01; Z68.43
[2025-06-23 08:34] VITALS: BP 122/78; PULSE 64; O2SAT 98; BMI 56.4
--- OUTSIDE RECORDS SUMMARY | 2025-06-23 14:42 | XMS_ITS | Encounter Summary ---
Author Organization [facility] Address [address] [place] [phone] Phone Care Team Providers Care Plate Corrector Name Role Phone Pcp, Unknown Primary Care Provider Unavailabl e Encounter Details Date Type Department Care Team (Late st Contact Info) Description 09/18/2023 Procedure Pass [facility], Ct Scan - [address] [address] Social History Tobacco Use Types Packs/Day Years [...] on filedocumented in this encounter Care Teams Plate Corrector Relationship Specialty Start Date End Date Pcp, Unknown PCP - General 03/30/23 documented as of this encounter Additional Source Comments The information contained in this document represents components of the legal health record. It is not the complete legal health record.[facility]
--- OUTSIDE RECORDS SUMMARY | 2025-06-23 14:43 | XMS_ITS | Patient Health Record ---
Author Organization [facility] [address] Address [address] [place] [address] Care Team Providers Care Security Orderly Name Role Phone SOTERO RODRIGUEZ Unavailable [phone] Allergies No Known Allergies Reason For Referral No Information Medications Medication SIG (Take, Route, Frequency, Duration) Notes Start Date End Date Status Tylenol Active Mounjaro 5 MG/0.5ML Solution Pen-injector as directed Subcutaneous weekly; Duration: 30 days Active predniSONE 20 MG Tablet 1 tablet Orally Once a day Active Albuterol Sulfate HFA 108 (90 Base) MCG/ACT Aerosol Solution 1 puff as needed Inhalation every 4 hrs Active Nasal [place] 0.05 % Solution 2 sprays in each nostril as needed Nasally Twice a day Activ e Trulicity 1.5 MG/0.5ML Solution Pen-injector as directed Subcutaneous weekly; Duration: 30 days Active Doxycycline Active Ozempic (0.25 or 0.5 MG/DOSE) 2 MG/1.5ML Solution Pen-injector Inject 1mg Subcutaneous weekly; Duration: 90 days Active Mounjaro 7.5 MG/0.5ML Solution Pen-injector inject 7.5mg weekly subcutaneously Please fill prescription through the [employer] co-pay card program and not through insurance Prior authorization NOTrequired Diagnosis e11.9 Subcutaneous weekly; Duration: 30 days 07/18/2022 Active Mounjaro 10 MG/0.5ML Solution Pen-injector 10mg Subcutaneous weekly; Duration: 30 days Active Immunizations Vaccine Route [...] stop date) Former Smoker NA - NA Social History Drugs/Alcohol: Social Info Question Answer Notes Drugs Have you used drugs other than those for medical reasons in the past 12 months? No Tobacco Use: Social Info Question Answer Notes Tobacco Use/Smoking Are you a former smoker How long has it been since you last smoked? > 10 years Additional Findings: Tobacco User Modera te cigarette smoker (10-19 cigs/day) Additional Details Category Social Info Options Details Drugs/Alcohol: Do you smoke marijuana? De nies Do you drink alcohol? No Section Notes: Quit smoking 1984 about 1 [...] Status Risk Notes Problem Morbid obesity (disorder) (739567090) Morbid (severe) obesity due to excess calories (E66.01) Active confirmed Problem Prediabetes (551194696) Prediabetes (R73.03) Active confirmed Problem Obese class I (finding) (401585964844777) Obesity (BMI 30.0-34.9) (E66.9) Active confirmed Problem Obstructive sleep apnea syndrome (54243592) IRLANDA (obstructive sleep apnea) (G47.33) Active confirmed Problem Body mass index 40+ - morbidly obese (088049255) Body mass index [BMI] 50.0-59.9, adult (Z68.43) Active confirmed Problem Body mass index 30+ - obesity (finding) (722029818) Body mass index [BMI] 60.0-69.9, adult (Z68.44) Active confirmed Problem Hyperinsulinemia (96926161) Hyperinsulinemia (E16.1) Active confirmed Problem Body mass index 40+ - severely obese (335586294) BMI 45.0-49.9, adult (Z68.42) Active confirmed Plan Of Treatment Pending Test Test Name Order Date EKG 02/22/2021 HEMOGLOBIN A1C 09/28/2021 Insulin Level 09/28/2021 Insurance Providers Payer Name Payer Address Payer Phone Subscriber Number Group Number Insured Name Patient Relationship to Insured Coverage Start Date Coverage End Date [facility] [address] [place] [address] [phone] [id number] Carl Duke Self - patient is the insured 2 Medications Administered Medication Instructions Date of Administration Dosage Notes MICC B12 INJECTION 09/28/2021 1 mL MICC B12 INJECTION 10/26/2021 MICC B12 INJECTION 12/01/2021 lot # [id number] MICC B12 INJECTION 01/12/2022 1 MICC B12 INJECTION 02/15/2022 1 MICC B12 INJECTION 03/27/2022 1 MICC B12 INJECTION 04/27/2022 MICC B12 INJECTION 06/08/2022 MICC B12 INJECTION 07/18/2022 MICC B12 INJECTION 09/07/2022 MICC B12 INJECTION 10/05/2022 Medical (General) History Medical History History ICD Code asthma seasonal allergies gallstones
--- OUTSIDE RECORDS SUMMARY | 2025-06-23 14:43 | XMS_ITS | Encounter Summary ---
Author Organization [facility] Address [address] [place] [address] [address] [place] [address] Phone Care Team Providers Care Greenhouse Grower Name Role Phone Pcp, Unknown Primary Care Provider Unavailabl e Encounter Details Date Type Department Care Team (Late st Contact Info) Description 08/26/2024 Ancillary Orders [facility], X-Ray - [facility] [address] [place] [address] Irma Apodaca, [facility] [address] [facility], [facility] [address] [place] [address] [email or web address] Shortness of breath (Primary Dx) Social History [...] clinician's provided indication for this examination in [facility]: Pain COMPARISON: Prior chest x-ray dated 09/17/2023 FINDINGS: Devices/Tubes/Lines: None. Lungs: No specific radiographic evidence for pneumonia or edema. Pleura: No pleural effusion or pneumothorax. Heart/Mediastinum: The heart size is normal. Bones/Soft Tissues: No displaced rib fracture. Procedure Note Kike Flores MD - 08/26/2024 XR CHEST PA AND LATERAL 2 VIEWS Referring clinician's provided indication for this examination in [facility]:Pain COMPARISON: Prior chest x-ray dated 09/17/2023 FINDINGS: [...] breath documented in this encounter Care Teams Greenhouse Grower Relationship Specialty Start Date End Date Pcp, Unknown PCP - General 03/30/23 documented as of this encounter Additional Source Comments The information contained in this document represents components of the legal health record. It is not the complete legal health record.[facility]
--- OUTSIDE RECORDS SUMMARY | 2025-06-23 14:44 | XMS_ITS | Clinical Summary ---
Author Organization [facility] Address [address] [place] [address] Phone Care Team Providers Care Ski Base Trimmer Name Role Phone Pcp, Unknown Primary Care [...] file Medical Devices Not on file Insurance [facility] Care Teams Ski Base Trimmer Relationship Specialty Start Date End Date Pcp, Unknown PCP - General 03/30/23 Additional Source Comments The information contained in this document represents components of the legal health record. It is not the complete legal health record.[facility]
== END 2025-06-23 09:13 | disposition home or self-care (01) ==
LOC: HO.HSMS 08:21
PROVIDERS: PCP Internal Medicine; Visit Provider Physician Assistant Medical
DX: G47.33 Obstructive sleep apnea (adult) (pediatric) (principal); G47.19 Other hypersomnia; R06.83 Snoring; G25.81 Restless legs syndrome; E66.01 Morbid (severe) obesity due to excess calories; Z68.43 Body mass index [BMI] 50.0-59.9, adult
CPT/HCPCS: 99214

== ENCOUNTER 2025-06-24 08:36 | Outpatient (REF) | payer OTHER, SELFPAY ==
--- NOTE | ~2025-06-24 | US_ITS ---
EXAMINATION: US LOWER EXTREMITY VENOUS (REFLUX EXAM), BILATERAL CLINICAL INFORMATION: I 83.11 COMPARISON: None. TECHNIQUE: Color flow triplex imaging and compression Doppler was performed to evaluate both the deep and the superficial systems bilaterally. To evaluate the superficial system, the examination was performed in the upright position. Color-flow Doppler ultrasound and compression ultrasound were utilized. In addition, maneuvers were utilized to demonstrate reflux. FINDINGS: 1. DEEP VENOUS ULTRASOUND OF THE RIGHT LOWER EXTREMITY: Common Femoral Vein: Compressible, normal respiratory variation and augmented flow. Femoral Vein: Compressible, normal color flow and augmentation. Popliteal Vein: Compressible, normal augmentation. Deep Reflux: There is no evidence of reflux in the deep system in either the common femoral vein, superficial femoral or the popliteal vein. There is no evidence of a Gao's cyst. 2. SUPERFICIAL ULTRASOUND WITH DOPPLER OF RIGHT LOWER EXTREMITY: GREAT SAPHENOUS VEIN: Saphenofemoral Junction: 0.5 cm; Reflux: 0 ms Proximal Thigh: 0.6 cm; Reflux: 0 ms Mid Thigh: 0.4 cm; Reflux: 0 ms Distal Thigh: 0.5 cm; Reflux: 0 ms At Knee: Not seen. Proximal Calf: 0.3 cm; Reflux: 0 ms Mid Calf: 0.2 cm; Reflux: 1720 ms Distal Calf: 0.3 cm; Reflux: 2360 ms DUPLICATED MEDIAL GREAT SAPHENOUS VEIN: Diameter: None imaged Reflux: NA DUPLICATED LATERAL GREAT SAPHENOUS VEIN: Diameter: None imaged Reflux: NA SMALL SAPHENOUS VEIN: Saphenopopliteal Junction: 0.5 cm; Reflux: 0 ms Proximal: 0.3 cm; Reflux: 0 ms Distal: 0.2 cm; Reflux: 0 ms VEIN OF GIACOMINI: Size: 0.3 cm. Reflux: NA PERFORATORS: Location: Great saphenous vein, mid calf to vv. Size: There 0.2 cm. Reflux: NA VARICOSITIES: Location: Small saphenous vein, proximal segment. Great saphenous vein mid thigh to the knee. Size: 0.3-0.6 cm. Reflux: NA 3. DEEP VENOUS ULTRASOUND OF THE LEFT LOWER EXTREMITY: Common Femoral Vein: Compressible, normal respiratory variation and augmented flow. Femoral Vein: Compressible, normal color flow and augmentation. Popliteal Vein: Compressible, normal augmentation. Deep Reflux: There is no evidence of reflux in the deep system in either the common femoral vein, superficial femoral or the popliteal vein. There is no evidence of a Gao's cyst. 4. SUPERFICIAL ULTRASOUND WITH DOPPLER OF LEFT LOWER EXTREMITY: GREAT SAPHENOUS VEIN: Saphenofemoral Junction: 1.1 cm; Reflux: 0 ms Proximal Thigh: 0.7 cm; Reflux: 0 ms Mid Thigh: 0.6 cm; Reflux: 0 ms Distal Thigh: 0.4 cm; Reflux: 0 ms At Knee: 0.3 cm; Reflux: 0 ms Proximal Calf: 0.3 cm; Reflux: 0 ms Mid Calf: 0.3 cm; Reflux: 0 ms Distal Calf: 0.2 cm; Reflux: 0 ms DUPLICATED MEDIAL GREAT SAPHENOUS VEIN: Diameter: None imaged Reflux: NA DUPLICATED LATERAL GREAT SAPHENOUS VEIN: Diameter: None imaged. Reflux: NA SMALL SAPHENOUS VEIN: Saphenopopliteal Junction: 0.3 cm; Reflux: 0 ms Proximal: 0.2 cm; Reflux: 0 ms Distal: 0.3 cm; Reflux: 0 ms VEIN OF GIACOMINI: Size: 0.5 cm. Reflux: NA PERFORATORS: Location: Great saphenous vein, distal calf. Size: 0.3 cm. Reflux: NA VARICOSITIES: Location: Great saphenous vein, mid thigh and the knee. Size: 0.5 and 0.4 cm. Reflux: NA US/US venous insuf bilat IMPRESSION: Right: Venous insufficiency, great saphenous vein from the mid calf to the ankle. Perforators and varices without reflux. Left: No venous insufficiency. Perforators and varices without reflux. Electronically signed by: Marc Dominguez MD 06/24/2025 10:55 AM [email or web address]
--- OUTSIDE RECORDS SUMMARY | 2025-06-24 16:20 | XMS_ITS | Patient Health Record ---
Author Organization [facility] [address] Address [address] [place] [address] Care Team Providers Care Stamp Classifier Name Role Phone SOTERO RODRIGUEZ Unavailable [phone] Allergies No Known Allergies Reason For Referral [...] needed Inhalation every 4 hrs Active Nasal [place] 0.05 % Solution 2 sprays in each nostril as needed Nasally Twice a day Activ e Trulicity 1.5 MG/0.5ML Solution Pen-injector as directed Subcutaneous weekly; Duration: 30 days Active Doxycycline Active Ozempic (0.25 or 0.5 MG/DOSE) 2 MG/1.5ML Solution Pen-injector Inject 1mg Subcutaneous weekly; Duration: 90 days Active Mounjaro 7.5 MG/0.5ML Solution Pen-injector inject 7.5mg weekly subcutaneously Please fill prescription through the [employer] co-pay card program and not through insurance [...] Status Risk Notes Problem Morbid obesity (disorder) (229722392) Morbid (severe) obesity due to excess calories (E66.01) Active confirmed Problem Prediabetes (010371847) Prediabetes (R73.03) Active confirmed Problem Obese class I (finding) (278340177256315) Obesity (BMI 30.0-34.9) (E66.9) Active confirmed Problem Obstructive sleep apnea syndrome (07753774) IRLANDA (obstructive sleep apnea) (G47.33) Active confirmed Problem Body mass index 40+ - morbidly obese (981189470) Body mass index [BMI] 50.0-59.9, adult (Z68.43) Active confirmed Problem Body mass index 30+ - obesity (finding) (294872930) Body mass index [BMI] 60.0-69.9, adult (Z68.44) Active confirmed Problem Hyperinsulinemia (14482019) Hyperinsulinemia (E16.1) Active confirmed Problem Body mass index 40+ - severely obese (715687123) BMI 45.0-49.9, adult (Z68.42) Active confirmed Plan Of Treatment Pending Test Test Name Order Date EKG 02/22/2021 HEMOGLOBIN A1C 09/28/2021 Insulin Level 09/28/2021 Insurance Providers Payer Name Payer Address Payer Phone Subscriber Number Group Number Insured Name Patient Relationship to Insured Coverage Start Date Coverage End Date [facility] [address] [place] [address] [phone] [id number] Carl Duke Self - patient is the insured 2 Medications Administered Medication Instructions Date of Administration Dosage Notes MICC B12 INJECTION 09/28/2021 1 mL MICC B12 INJECTION 10/26/2021 MICC B12 INJECTION 12/01/2021 lot # [id number] MICC B12 INJECTION 01/12/2022 1 MICC B12 INJECTION 02/15/2022 1 MICC B12 INJECTION 03/27/2022 1 MICC B12 INJECTION 04/27/2022 MICC B12 INJECTION 06/08/2022 MICC B12 INJECTION 07/18/2022 MICC B12 INJECTION 09/07/2022 MICC B12 INJECTION 10/05/2022 Medical (General) History Medical History History ICD Code asthma seasonal allergies gallstones
--- OUTSIDE RECORDS SUMMARY | 2025-06-24 16:20 | XMS_ITS | Encounter Summary ---
Author Organization [facility] Address [address] [place] [address] [address] [place] [address] Phone Care Team Providers Care Outsole Skiver Name Role Phone Pcp, Unknown Primary Care Provider Unavailabl e Encounter Details Date Type Department Care Team (Late st Contact Info) Description 08/26/2024 Ancillary Orders [facility], X-Ray - [facility] [address] [place] [address] Irma Apodaca, [facility] [address] [facility], [facility] [address] [place] [address] [email or web address] Shortness of breath (Primary Dx) Social History [...] clinician's provided indication for this examination in [facility]: Pain COMPARISON: Prior chest x-ray dated 09/17/2023 FINDINGS: Devices/Tubes/Lines: None. Lungs: No specific radiographic evidence for pneumonia or edema. Pleura: No pleural effusion or pneumothorax. Heart/Mediastinum: The heart size is normal. Bones/Soft Tissues: No displaced rib fracture. Procedure Note Kike Flores MD - 08/26/2024 XR CHEST PA AND LATERAL 2 VIEWS Referring clinician's provided indication for this examination in [facility]:Pain COMPARISON: Prior chest x-ray dated [...] breath documented in this encounter Care Teams Outsole Skiver Relationship Specialty Start Date End Date Pcp, Unknown PCP - General 03/30/23 documented as of this encounter Additional Source Comments The information contained in this document represents components of the legal health record. It is not the complete legal health record.[facility]
--- OUTSIDE RECORDS SUMMARY | 2025-06-24 16:20 | XMS_ITS | Encounter Summary ---
Author Organization [facility] Address [address] [place] [address] Phone Care Team Providers Care Checkerer Hand Name Role Phone Pcp, Unknown Primary Care Provider Unavailabl e Encounter Details Date Type Department Care Team (Late st Contact Info) Description 09/18/2023 Procedure Pass [facility], Ct Scan - [address] [address] Social History Tobacco Use Types Packs/Day Years [...] on filedocumented in this encounter Care Teams Checkerer Hand Relationship Specialty Start Date End Date Pcp, Unknown PCP - General 03/30/23 documented as of this encounter Additional Source Comments The information contained in this document represents components of the legal health record. It is not the complete legal health record.[facility]
--- OUTSIDE RECORDS SUMMARY | 2025-06-24 16:20 | XMS_ITS | Clinical Summary ---
Author Organization [facility] Address [address] [place] [address] Phone Care Team Providers Care Oncology Registrar Name Role Phone Pcp, Unknown Primary Care [...] file Medical Devices Not on file Insurance [facility] Care Teams Oncology Registrar Relationship Specialty Start Date End Date Pcp, Unknown PCP - General 03/30/23 Additional Source Comments The information contained in this document represents components of the legal health record. It is not the complete legal health record.[facility]
== END 2025-06-24 08:37 | disposition home or self-care (01) ==
LOC: HO.US 08:36
PROVIDERS: PCP Internal Medicine; Visit Provider Surgery Vascular Surgery
DX: I83.11 Varicose veins of right lower extremity with inflammation (principal)
CPT/HCPCS: 93970

== ENCOUNTER → 2025-06-24 08:37 | Outpatient (BNV) | payer OTHER, SELFPAY | PROVIDERS: PCP Internal Medicine; Visit Provider Radiology Diagnostic Radiology | DX: I83.11 Varicose veins of right lower extremity with inflammation (principal) | CPT/HCPCS: 93970 ==